=== PATIENT | female | born 1940 | race Caucasian/White ===

== ENCOUNTER 2017-08-03 13:44 | Emergency (ER) | payer OTHER, MEDICAID ==
[2017-08-03 13:53] VITALS: BP 161/79; BMI 28.8
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
[2017-08-03 14:25] LABS: BILIRUBIN,URINE NEGATIVE (NEGATIVE); BLOOD/HEMOGLOBIN,URINE 3+ (NEGATIVE); GLUCOSE, URINE NEGATIVE (NEGATIVE); KETONES,URINE NEGATIVE (NEGATIVE); LEUKOCYTE ESTERASE ,URINE 3+ (NEGATIVE); NITRITES,URINE NEGATIVE (NEGATIVE); PROTEIN,URINE NEGATIVE (NEGATIVE); UROBILINOGEN,URINE NORMAL (NORMAL)
[2017-08-03 14:29] LABS: APPEARANCE,URINE HAZY (CLEAR); COLOR,URINE PALE YELLOW (YELLOW)
--- NOTE | 2017-08-03 14:32 | CT ---
HISTORY: Altered mental status, hallucinations Study: CT brain without contrast Comparison: None Technique: Multiple axial images of the brain were obtained from the skull base to the vertex without administra tion of IV contrast. Findings: Imaging of the brain demonstrates no intracranial hemorrhage, mass effect, or midline shift. No extra -axial fluid collection is identified. There is no CT evidence to suggest acute or early subacute inf arct. Global atrophy is noted in is commensurate with patient's stated age. The ventricular system is nondilated. The basilar cisterns are patent. The bony structures are intact. IMPRESSION: 1. No acute intracranial process evident Reported By:
--- NOTE | 2017-08-03 14:34 | RAD ---
HISTORY: Altered mental status, shortness of breath, hallucinations Study: Single view chest Comparison:None Findings: There is mild subsegmental atelectasis in the lung bases. No infiltrate, effusion or pneumothorax sylvia ntified. The cardiac and mediastinal contours are within normal limits. The soft tissues are unremar kable. IMPRESSION: 1. No acute cardiopulmonary abnormality. Reported By:
[2017-08-03 14:37] LABS: BACTERIA,URINE 2+ /HPF (NEGATIVE); RBC,URINE 0-2 /HPF (NONE SEEN); SQUAMOUS EPITHELIAL CELL,UR FEW /HPF (NEGATIVE)
[2017-08-03 14:38] LABS: AMORPHOUS SEDIMENT,UR 1+ /HPF (NEGATIVE); TRANSITIONAL EPI CELLS,URINE FEW /HPF (NEGATIVE)
[2017-08-03 14:45] LABS: BASOPHILS # (AUTO) 0.1 X10^3/uL (0.0-0.1); BASOPHILS % (AUTO) 0.7 % (0.2-1.0); EOSINOPHILS % (AUTO) 0.3 % (0.9-2.9); HEMATOCRIT 32.1 % (36.0-47.0); HEMOGLOBIN 11.2 g/dL (12.0-16.0); LYMPHOCYTES % (AUTO) 12.7 % (21.0-51.0); MEAN CORPUSCULAR HEMOGLOBIN 32.1 pg (27.0-34.0); MEAN CORPUSCULAR HGB CONC 34.9 g/dL (33.0-35.0); MEAN CORPUSCULAR VOLUME 92.1 fL (80.0-100.0); MEAN PLATELET VOLUME 9.3 fL (7.4-11.0); MONOCYTES # (AUTO) 0.8 x10^3/uL (0.3-0.8); MONOCYTES % (AUTO) 9.3 % (0.0-13.0); NEUTROPHILS # (AUTO) 6.3 x10^3/uL (2.2-4.8); PLATELET COUNT 183 X10^3/uL (150.0-450.0); RED BLOOD COUNT 3.48 X10^6/uL (3.5-5.4); RED CELL DISTRIBUTION WIDTH 12.6 % (11.6-16.5); WHITE BLOOD COUNT 8.1 X10^3/uL (3.6-10.0)
[2017-08-03 15:28] LABS: BLOOD UREA NITROGEN 12 mg/dL (7-18); CALCIUM 7.8 mg/dL (8.5-10.1); CHLORIDE 104 mmol/L (98-107); CREATININE 1.32 mg/dL (0.55-1.02); SALICYLATE < 2.8 mg/dL (2.8-20); SODIUM 140 mmol/L (136-145); TROPONIN I < 0.02 ng/mL (0-1.5); eGFR BLACK RACES 50 (>60); eGFR NON BLACK RACES 42 (>60)
[2017-08-03 15:35] LABS: ALANINE AMINOTRANSFERASE 19 Units/L (12-78); ALBUMIN 3.8 g/dL (3.4-5.0); ALKALINE PHOSPHATASE 94 Units/L (46-116); ASPARTATE AMINO TRANSFERASE 14 Units/L (15-37); CKMB % 1.1 % (<4); CREATINE KINASE 143 Units/L (26-192); CREATINE KINASE MB 1.5 ng/mL (0-4.0); TOTAL PROTEIN 6.8 g/dL (6.4-8.2)
[2017-08-03] MEDS ORDERED: XANAX ONE (17:09)
[2017-08-03] MEDS ORDERED: XANAX PO ONE (17:11)
== END 2017-08-03 17:26 | disposition short-term general hospital (02) ==
LOC: ER 14:06
DX: R40.4 Transient alteration of awareness (principal); R44.1 Visual hallucinations; N39.0 Urinary tract infection, site not specified; F22 Delusional disorders; F41.9 Anxiety disorder, unspecified; R31.9 Hematuria, unspecified; R94.31 Abnormal electrocardiogram [ECG] [EKG]; Z79.899 Other long term (current) drug therapy
CPT/HCPCS: 36415; 70450; 71045; 80053; 80307; 81001; 82550; 82553; 84484; 85025; 93005; 93010; 99283; 99285; G0434; G6038; G6039; G6040

== ENCOUNTER 2018-02-18 10:31 | Inpatient (IN) ==
[2018-02-18] MEDS ORDERED: SOLU-Medrol 125 MG VIAL IVP ONE (10:40)
[2018-02-18] MEDS ORDERED: DUONEB 0.5 MG/3 MG NEB ONE (10:40)
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
[2018-02-18 10:48] VITALS: BMI 28.3
[2018-02-18] MEDS ORDERED: DUONEB 0.5 MG/3 MG ONE (10:51)
[2018-02-18] MEDS ORDERED: SOLU-Medrol 125 MG VIAL ONE (10:56)
[2018-02-18 10:59] LABS: BASOPHILS # (AUTO) 0.1 X10^3/uL (0.0-0.1); BASOPHILS % (AUTO) 0.9 % (0.2-1.0); EOSINOPHILS % (AUTO) 0.1 % (0.9-2.9); HEMATOCRIT 33.8 % (36.0-47.0); HEMOGLOBIN 11.5 g/dL (12.0-16.0); LYMPHOCYTES # (AUTO) 1.3 X10^3/uL (1.3-2.9); LYMPHOCYTES % (AUTO) 11.9 % (21.0-51.0); MEAN CORPUSCULAR HEMOGLOBIN 32.6 pg (27.0-34.0); MEAN CORPUSCULAR HGB CONC 34.2 g/dL (33.0-35.0); MEAN CORPUSCULAR VOLUME 95.5 fL (80.0-100.0); MEAN PLATELET VOLUME 8.2 fL (7.4-11.0); MONOCYTES % (AUTO) 9.7 % (0.0-13.0); NEUTROPHILS # (AUTO) 8.3 x10^3/uL (2.2-4.8); NEUTROPHILS % (AUTO) 77.4 % (42.0-75.0); PLATELET COUNT 286 X10^3/uL (150.0-450.0); RED BLOOD COUNT 3.54 X10^6/uL (3.5-5.4); RED CELL DISTRIBUTION WIDTH 14.1 % (11.6-16.5); WHITE BLOOD COUNT 10.7 X10^3/uL (3.6-10.0)
[2018-02-18] MEDS ORDERED: NS 1000 ML 1,000 ML IV SCH (11:00)
--- NOTE | 2018-02-18 11:06 | RAD ---
HISTORY: Cough, AMS Study: Single-view chest Comparison: 08/03/2017. Findings: Trachea is midline. Heart size is upper normal with aortic uncoiling. There is hyperinflation of the lungs with increased interstitial markings. Interstitial markings have increased compared to the prior studies. There is also silhouetting of the left hemidiaphragm which may indicate atelectasis or infiltrate present in this region. No apparent CHF is seen. There is degenerative change present involving the right shoulder. No acute osseous changes are seen. IMPRESSION: Findings likely indicating COPD with hyperinflation and increased interstitial markings bilaterally. Interstitial markings appear to have increased compared to the prior study. There is also silhouetting of the left hemidiaphragm which may indicate atelectasis or infiltrate present in this region. Reported By:
[2018-02-18 11:19] LABS: BLOOD UREA NITROGEN 21 mg/dL (7-18); CARBON DIOXIDE 22.7 mmol/L (21-32); CHLORIDE 98 mmol/L (98-107); CREATININE 1.11 mg/dL (0.55-1.02); SODIUM 133 mmol/L (136-145); TROPONIN I < 0.02 ng/mL (0-1.5); eGFR NON BLACK RACES 51 (>60)
[2018-02-18 11:23] LABS: ALANINE AMINOTRANSFERASE 38 Units/L (12-78); ALBUMIN 3.5 g/dL (3.4-5.0); ALKALINE PHOSPHATASE 123 Units/L (46-116); ASPARTATE AMINO TRANSFERASE 17 Units/L (15-37); CKMB % 3.4 % (<4); CREATINE KINASE 50 Units/L (26-192); CREATINE KINASE MB 1.7 ng/mL (0-4.0); TOTAL PROTEIN 7.5 g/dL (6.4-8.2)
[2018-02-18 11:39] LABS: BILIRUBIN,URINE NEGATIVE (NEGATIVE); BLOOD/HEMOGLOBIN,URINE 1+ (NEGATIVE); GLUCOSE, URINE NEGATIVE (NEGATIVE); KETONES,URINE 1+ (NEGATIVE); LEUKOCYTE ESTERASE ,URINE 1+ (NEGATIVE); NITRITES,URINE NEGATIVE (NEGATIVE); PROTEIN,URINE 2+ (NEGATIVE); UROBILINOGEN,URINE NORMAL (NORMAL)
[2018-02-18 11:46] LABS: APPEARANCE,URINE HAZY (CLEAR); COLOR,URINE YELLOW (YELLOW)
[2018-02-18 11:47] LABS: BACTERIA,URINE NEGATIVE /HPF (NEGATIVE); MUCUS,URINE FEW /HPF (NEGATIVE); RBC,URINE 0-2 /HPF (NONE SEEN); SQUAMOUS EPITHELIAL CELL,UR RARE /HPF (NEGATIVE)
[2018-02-18] MEDS ORDERED: ROCEPHIN VIAL 1 GRAM IVP ONE (12:13)
--- NOTE | 2018-02-18 12:13 | CT ---
HISTORY: Altered mental status Study: CT brain without contrast Comparison: 08/03/2017 Technique: Multiple axial images of the brain were obtained from the skull base to the vertex without administration of IV contrast. Findings: Imaging of the brain demonstrates no intracranial hemorrhage, mass effect, or midline shift. No extra-axial fluid collection is identified. There is no CT evidence to suggest acute or early subacute infarct. Global atrophy is noted. The ventricular system is nondilated. The basilar cisterns are patent. The bony structures are intact. IMPRESSION: 1. No acute intracranial process evident. Reported By:
[2018-02-18] MEDS: LOVENOX INJ 80 MG SYR SC SCH (13:25)
[2018-02-18] MEDS ORDERED: NS 1/2 1000 ML IV 1,000 ML IV ONE (14:47)
[2018-02-18] MEDS: NS 1/2 1000 ML IV 1,000 ML IV SCH (14:58)
[2018-02-18] MEDS: VIBRAMYCIN 100 MG in NS 100 ML IV + SPIKE MINIBAG* 100 ML IV SCH ×2 (14:59→21:30)
[2018-02-18] MEDS ORDERED: SALINE 3% 15 ML NEB TX NEB ONE (15:29)
[2018-02-18] MEDS: DUONEB 0.5 MG/3 MG NEB SCH ×2 (16:40→20:46)
[2018-02-18] MEDS ORDERED: VALIUM INJ ONE (16:42)
[2018-02-18] MEDS: VALIUM INJ IVP PRN (16:49)
[2018-02-18] MEDS: ROBITUSSIN DM PO SCH ×2 (17:08→21:30)
[2018-02-19] MEDS: VALIUM INJ IVP PRN ×2 (00:56→08:59)
[2018-02-19] MEDS: DUONEB 0.5 MG/3 MG NEB SCH ×6 (00:56→21:43)
[2018-02-19] MEDS: NS 1/2 1000 ML IV 1,000 ML IV SCH ×3 (04:53→22:30)
[2018-02-19] MEDS ORDERED: NS 1/2 1000 ML IV 1,000 ML IV ONE ×2 (06:29→22:20)
[2018-02-19] MEDS: NICOTINE PATCH TD SCH ×2 (06:31→08:58)
[2018-02-19 06:45] LABS: BASOPHILS % (AUTO) 0.2 % (0.2-1.0); HEMOGLOBIN 9.5 g/dL (12.0-16.0); LYMPHOCYTES # (AUTO) 1.2 X10^3/uL (1.3-2.9); LYMPHOCYTES % (AUTO) 10.1 % (21.0-51.0); MEAN CORPUSCULAR HEMOGLOBIN 32.6 pg (27.0-34.0); MEAN CORPUSCULAR HGB CONC 34.1 g/dL (33.0-35.0); MEAN CORPUSCULAR VOLUME 95.6 fL (80.0-100.0); MEAN PLATELET VOLUME 8.6 fL (7.4-11.0); MONOCYTES # (AUTO) 0.9 x10^3/uL (0.3-0.8); MONOCYTES % (AUTO) 7.9 % (0.0-13.0); NEUTROPHILS # (AUTO) 9.3 x10^3/uL (2.2-4.8); NEUTROPHILS % (AUTO) 81.8 % (42.0-75.0); PLATELET COUNT 246 X10^3/uL (150.0-450.0); RED BLOOD COUNT 2.93 X10^6/uL (3.5-5.4); RED CELL DISTRIBUTION WIDTH 14.3 % (11.6-16.5); WHITE BLOOD COUNT 11.3 X10^3/uL (3.6-10.0)
[2018-02-19 07:09] LABS: ALANINE AMINOTRANSFERASE 25 Units/L (12-78); ALBUMIN 2.7 g/dL (3.4-5.0); ALKALINE PHOSPHATASE 88 Units/L (46-116); ASPARTATE AMINO TRANSFERASE 12 Units/L (15-37); BLOOD UREA NITROGEN 22 mg/dL (7-18); CALCIUM 8.3 mg/dL (8.5-10.1); CARBON DIOXIDE 20.9 mmol/L (21-32); CHLORIDE 103 mmol/L (98-107); COR CA(FOR HYPOALB) 9.3 mg/dL (8.5-10.1); CREATININE 1.05 mg/dL (0.55-1.02); SODIUM 137 mmol/L (136-145); eGFR NON BLACK RACES 54 (>60)
[2018-02-19] MEDS: VIBRAMYCIN 100 MG in NS 100 ML IV + SPIKE MINIBAG* 100 ML IV SCH ×2 (08:57→21:00)
[2018-02-19] MEDS: ROBITUSSIN DM PO SCH ×4 (08:58→20:59)
[2018-02-19] MEDS: LOVENOX INJ 80 MG SYR SC SCH (08:59)
[2018-02-19] MEDS: SOLU-Medrol 40 MG VIAL IVP SCH ×2 (09:00→16:26)
[2018-02-19] MEDS: ROCEPHIN VIAL 1 GRAM IVP SCH (09:01)
--- NOTE | 2018-02-19 09:39 | DR.H&P ---
H&P - History & Physical for Day of: H&P Date: 02/18/18 - Chief Complaint Chief Complaint: AMS - History of Present Illness History of Present Illness: 77WF ER ADMISSION AFTER BEING FOUND IN HER CAR IN PARKING [place] A GAS STATION WITH CONFUSION. PT HAS COPD WITH DIFFUSE EXPIRATORY WHEEZES, CHEST XRAY WITH CHRONIC LUNG CHANGES, CT HEAD IN ER WITHOUT ACUTE FINDINGS. PT HAS PMH COPD, HTN, OA. PT ADMITTED FOR TREATMENT OF ACUTE ILLNESS - Past Medical History Past Medical History: Anxiety, Arthritis, COPD, Hypertension - Family History Family Medical History: Diabetes Mellitus, Cancer, Heart Failure, Hypertension - Social History Does patient currently use any type of tobacco product: Yes Have you used tobacco products in the last 12 months: Yes Type of Tobacco Use: Cigarettes Does any household member use tobacco: No Alcohol Use: None - Medications Home Medications: No Known Drug Allergies Allergy (Verified 08/03/17 13:49) CONTINUE taking the following medications escitalopram oxalate 10 mg PO DAILY 02/18/18 [History] furosemide 20 mg PO DAILY 02/18/18 [History] lisinopril 20 mg PO DAILY 02/18/18 [History] potassium chloride 10 meq PO DAILY 02/18/18 [History] - Review of Systems Constitutional: Weakness Eyes: No Symptoms Reported ENT: No Symptoms Reported Respiratory: Cough, Shortness of Breath, SOB with Excertion, Wheezing Gastrointestinal: No Symptoms Reported Genitourinary: No Symptoms Reported Musculoskeletal: No Symptoms Reported Skin: No Symptoms Reported Neurological: Confusion - Physical Exam Vital Signs: Temperature 98.4 F Pulse Rate [Right Brachial] 80 Pulse Rate 86 Respiratory Rate 24 Blood Pressure [Right Arm] 135/66 Blood Pressure 100/55 O2 Sat by Pulse Oximetry 99 Oriented: Person Eyes: Normal Ear: Normal Nose: Normal Throat: Dry Respiratory: Diminished Throughout, Wheezes Throughout Cardiovascular: Tachycardia : Normal Auscultation: Bowel Sounds: Normal Palpation: Normal Tenderness: Normal Skin: Decreased Turgur Musculoskeletal: Back:Lumbar Psychiatric: Anxiety Mood Description: Flat Speech Pattern: Appropriate, Delayed - Assessment/Plan (1) Altered mental state Status: Acute Plan: ADMIT, CT HEAD ON ADMISSION. CARDIAC MONITORING, SUPPLEMENTAL O2 AGGRESSIVE RESP THERAPY. IV ATBX, SPUTUM AND BLOOD CULTURES ON ADMISSION. VE RIFY HOME MEDICATION, GENTLE IV HYDRATION, I&OS (2) COPD with acute exacerbation Status: Acute (3) Hypertension Status: Acute (4) Bronchitis Status: Acute - Allergies Allergies/Adverse Reactions: Allergies Allergy/AdvReac Type Severity Reaction Status Date / Time No Known Drug Allergies Allergy Verified 08/03/17 13:49
[2018-02-19] MEDS ORDERED: BENADRYL INJ 50 MG VIAL IVP ONE (11:00)
[2018-02-19] MEDS ORDERED: BENADRYL INJ 50 MG VIAL ONE (11:15)
[2018-02-19] MEDS ORDERED: HALDOL INJ IVP ONE (11:20)
[2018-02-19] MEDS ORDERED: HALDOL INJ IVP PRN (12:26)
[2018-02-20] MEDS: SOLU-Medrol 40 MG VIAL IVP SCH ×3 (00:40→16:39)
[2018-02-20] MEDS: DUONEB 0.5 MG/3 MG NEB SCH ×6 (00:52→20:40)
[2018-02-20 05:58] LABS: BASOPHILS % (AUTO) 0.2 % (0.2-1.0); HEMATOCRIT 28.1 % (36.0-47.0); HEMOGLOBIN 9.5 g/dL (12.0-16.0); LYMPHOCYTES # (AUTO) 0.6 X10^3/uL (1.3-2.9); LYMPHOCYTES % (AUTO) 3.3 % (21.0-51.0); MEAN CORPUSCULAR HGB CONC 33.7 g/dL (33.0-35.0); MEAN CORPUSCULAR VOLUME 94.9 fL (80.0-100.0); MEAN PLATELET VOLUME 8.4 fL (7.4-11.0); MONOCYTES # (AUTO) 0.4 x10^3/uL (0.3-0.8); MONOCYTES % (AUTO) 2.6 % (0.0-13.0); NEUTROPHILS # (AUTO) 15.6 x10^3/uL (2.2-4.8); NEUTROPHILS % (AUTO) 93.9 % (42.0-75.0); PLATELET COUNT 263 X10^3/uL (150.0-450.0); RED BLOOD COUNT 2.96 X10^6/uL (3.5-5.4); RED CELL DISTRIBUTION WIDTH 13.9 % (11.6-16.5); WHITE BLOOD COUNT 16.7 X10^3/uL (3.6-10.0)
[2018-02-20 06:13] LABS: ALANINE AMINOTRANSFERASE 28 Units/L (12-78); ALBUMIN 2.7 g/dL (3.4-5.0); ALKALINE PHOSPHATASE 83 Units/L (46-116); ASPARTATE AMINO TRANSFERASE 14 Units/L (15-37); BLOOD UREA NITROGEN 28 mg/dL (7-18); CALCIUM 8.2 mg/dL (8.5-10.1); CARBON DIOXIDE 19.6 mmol/L (21-32); CHLORIDE 105 mmol/L (98-107); COR CA(FOR HYPOALB) 9.2 mg/dL (8.5-10.1); COR NA(FOR HYPERGLY) 138 mmol/L (136-145); CREATININE 1.12 mg/dL (0.55-1.02); SODIUM 137 mmol/L (136-145); TOTAL PROTEIN 5.9 g/dL (6.4-8.2); eGFR NON BLACK RACES 50 (>60)
[2018-02-20 06:19] LABS: PLATELET MORPHOLOGY COMMENT NORMAL (NORMAL)
[2018-02-20] MEDS: LOVENOX INJ 80 MG SYR SC SCH (08:22)
[2018-02-20] MEDS: ROCEPHIN VIAL 1 GRAM IVP SCH (08:23)
[2018-02-20] MEDS: ROBITUSSIN DM PO SCH ×4 (08:23→20:18)
[2018-02-20] MEDS: NICOTINE PATCH TD SCH (08:26)
[2018-02-20] MEDS: NS 1/2 1000 ML IV 1,000 ML IV SCH ×3 (08:27→22:39)
[2018-02-20] MEDS: VIBRAMYCIN 100 MG in NS 100 ML IV + SPIKE MINIBAG* 100 ML IV SCH (08:28)
[2018-02-20] MEDS ORDERED: NS 1/2 1000 ML IV 1,000 ML IV ONE (11:57)
--- NOTE | 2018-02-20 13:58 | PCM.PROG ---
Addendum entered and electronically signed by MERLIN KING 02/20/18 14:03: PROGRESS 02/20/2018 1013 SIGNED ON 02/19/[address] BUENO Original Note: Progress Note - Progress Note for Day of Date of Exam: 02/19/18 - Subjective Subjective: 77 WF ER ADMISSION ON 02/19 WITH CONFUSION AND BRONCHITIS. PT CURRENTLY ON IV ATBX, RESP THERAPY. PT IS VERY AGITATED THIS AM, SITTING ON SIDE OF BED WITH FAMILY IN ROOM. PT ORIENTED TO SELF AND LOCATION. PT STATEE " IT DOESNT MATTER WHAT THEY SAY, THEY WILL BE EXECUTED AT [facility] ON TUESDAY" WHILE POINTING AT HER 3 FAMILIY MEMBERS IN HER ROOM. PT STATES " I KNOW MY RIGHTS AND I WANT TO GO HOME AND DONT WANT ANY MORE TREATMENT" PT ATTEMPTING TO REMOVE HER IV. FAMILY REPORTS PT HAS HX OF MENTAL ILLNESS, HAD TO BE 1013 AND SENT TO [facility] SEVERAL MONTHS AGO. FAMILY REPORTS SHE LIVES ALONE AND FAMILY CHECKS ON HER DAILY, PT HAS BEEN HAVING INCREASED CONFUSION AND PARANOIA WITH HALLUCINATIONS. - Past Medical Family Social History Past Med/Fam/Surg Hx: No changes since H&P Allergies: Allergies No Known Drug Allergies Allergy (Verified 08/03/17 13:49) - Review of Systems ROS: No change since H&P - Vital Signs and I&O's Vital Signs: Temperature 98.1 F Pulse Rate [Right Brachial] 80 Pulse Rate 89 Respiratory Rate 19 Blood Pressure [Right Arm] 135/66 Blood Pressure 132/60 O2 Sat by Pulse Oximetry 97 Intake and Output: Intake & Output 02/18/18 02/19/18 02/20/18 02/21/18 11:59 11:59 11:59 11:59 Intake Total 2245 / 2245 2173 / 2173 882 / 882 Balance 2245 / 2245 2173 / 2173 882 / 882 - Physical Exam Oriented: Person Eyes: Normal Ear: Normal Nose: Normal Throat: Dry Cardiovascular: Tachycardia : Normal Auscultation: Bowel Sounds: Normal Tenderness: Normal Skin: Decreased Turgur Musculoskeletal: Back:Lumbar Psychiatric: Anxiety, Agitation (SITTING ON BEDSIDE, ROCKING, FIGETING, RESTLESS) Mood Description: Flat, Suspicious, Anxious Affect: Anxious Speech Pattern: Clear, Appropriate, Inappropriate (BOTH TRUE AND UNTRUE RESPONSES) - Laboratory and Diagnostics Result Diagrams: 02/20/18 05:10 02/20/18 05:10 Labs: 02/18/18 10:36 Blood Blood Culture - Preliminary 02/18/18 10:48 Blood Blood Culture - Preliminary 02/18/18 15:08 Sputum - Expectorated Sputum Sputum Culture - Final 02/18/18 15:08 Sputum - Expectorated Sputum - Final Laboratory WBC 16.7 X10^3/uL (3.6-10.0) H 02/20/18 05:10 RBC 2.96 X10^6/uL (3.5-5.4) L 02/20/18 05:10 Hgb 9.5 g/dL (12.0-16.0) L 02/20/18 05:10 Hct 28.1 % (36.0-47.0) L 02/20/18 05:10 MCV 94.9 fL (80.0-100.0) 02/20/18 05:10 MCH 32.0 pg (27.0-34.0) 02/20/18 05:10 MCHC 33.7 g/dL (33.0-35.0) 02/20/18 05:10 RDW 13.9 % (11.6-16.5) 02/20/18 05:10 Plt Count 263 X10^3/uL (150.0-450.0) 02/20/18 05:10 Plt Count Comment Adequate (ADEQUATE) 02/20/18 05:10 MPV 8.4 fL (7.4-11.0) 02/20/18 05:10 Neut % (Auto) 93.9 % (42.0-75.0) H 02/20/18 05:10 Lymph % (Auto) 3.3 % (21.0-51.0) L 02/20/18 05:10 [place] % (Auto) 2.6 % (0.0-13.0) 02/20/18 05:10 Eos % (Auto) 0.0 % (0.9-2.9) L 02/20/18 05:10 Baso % (Auto) 0.2 % (0.2-1.0) 02/20/18 05:10 Neut # (Auto) 15.6 x10^3/uL (2.2-4.8) H 02/20/18 05:10 Lymph # (Auto) 0.6 X10^3/uL (1.3-2.9) L 02/20/18 05:10 [place] # (Auto) 0.4 x10^3/uL (0.3-0.8) 02/20/18 05:10 Eos # (Auto) 0.0 x10^3/uL (0.0-0.2) 02/20/18 05:10 Baso # (Auto) 0.0 X10^3/uL (0.0-0.1) 02/20/18 05:10 Absolute Nucleated RBC 0.0 /100WBC 02/20/18 05:10 Total Counted 100 02/20/18 05:10 Neutrophils % (Manual) 97 % (39-76) H 02/20/18 05:10 Lymphocytes % (Manual) 3 % (13-43) L 02/20/18 05:10 Plt Morphology Comment Normal (NORMAL) 02/20/18 05:10 RBC Morphology Normal (NORMAL) 02/20/18 05:10 INR Target Range - 02/18/18 10:48 INR 1.08 (0.8-1.3) 02/18/18 10:48 APTT 36.9 SECONDS (22.9-36.5) H 02/18/18 10:48 PTT Comment - 02/18/18 10:48 D-Dimer 1480 ng/mL (0-400) H* 02/18/18 10:48 Sodium 137 mmol/L (136-145) 02/20/18 05:10 Corrected Sodium 138 mmol/L (136-145) 02/20/18 05:10 Potassium 4.6 mmol/L (3.5-5.1) 02/20/18 05:10 Chloride 105 mmol/L (98-107) 02/20/18 05:10 Carbon Dioxide 19.6 mmol/L (21-32) L 02/20/18 05:10 BUN 28 mg/dL (7-18) H 02/20/18 05:10 Creatinine 1.12 mg/dL (0.55-1.02) H 02/20/18 05:10 Est GFR (MDRD) Af Amer > 60 (>60) 02/20/18 05:10 Est GFR (MDRD) Non-Af 50 (>60) L 02/20/18 05:10 Glucose 129 mg/dL (65-99) H 02/20/18 05:10 Calcium 8.2 mg/dL (8.5-10.1) L 02/20/18 05:10 Corrected Calcium 9.2 mg/dL (8.5-10.1) 02/20/18 05:10 Magnesium 2.0 mg/dL (1.7-2.9) 02/18/18 10:48 Total Bilirubin 0.20 mg/dL (0.2-1.0) 02/20/18 05:10 AST 14 Units/L (15-37) L 02/20/18 05:10 ALT 28 Units/L (12-78) 02/20/18 05:10 Alkaline Phosphatase 83 Units/L (46-116) 02/20/18 05:10 Creatine Kinase 50 Units/L (26-192) 02/18/18 10:48 CK-MB (CK-2) 1.7 ng/mL (0-4.0) 02/18/18 10:48 CK/CKMB % Calc 3.4 % (<4) 02/18/18 10:48 Troponin I < 0.02 ng/mL (0-1.5) 02/18/18 10:48 Total Protein 5.9 g/dL (6.4-8.2) L 02/20/18 05:10 Albumin 2.7 g/dL (3.4-5.0) L 02/20/18 05:10 Globulin 3.2 g/dL (2.5-4.5) 02/20/18 05:10 Albumin/Globulin Ratio 0.8 Ratio (1.1-2.1) L 02/20/18 05:10 Specimen Type Catherized urine 02/18/18 11:32 Urine Color Yellow (YELLOW) 02/18/18 11:32 Urine Appearance Hazy (CLEAR) 02/18/18 11:32 Urine pH 5.0 (5.0 - 8.0) 02/18/18 11:32 Ur Specific [place] 1.015 (1.000-1.030) 02/18/18 11:32 Urine Protein 2+ (NEGATIVE) 02/18/18 11:32 Urine Glucose (UA) Negative (NEGATIVE) 02/18/18 11:32 Urine Ketones 1+ (NEGATIVE) 02/18/18 11:32 Urine Occult Blood 1+ (NEGATIVE) 02/18/18 11:32 Urine Nitrite Negative (NEGATIVE) 02/18/18 11:32 Urine Bilirubin Negative (NEGATIVE) 02/18/18 11:32 Urine Urobilinogen Normal (NORMAL) 02/18/18 11:32 Ur Leukocyte Esterase 1+ (NEGATIVE) 02/18/18 11:32 Urine RBC 0-2 /HPF (NONE SEEN) 02/18/18 11:32 Urine WBC 0-2 /HPF (NONE SEEN) 02/18/18 11:32 Ur Squamous Epith Cells Rare /HPF (NEGATIVE) 02/18/18 11:32 Urine Bacteria Negative /HPF (NEGATIVE) 02/18/18 11:32 Urine Mucus Few /HPF (NEGATIVE) 02/18/18 11:32 Ur Culture Indicated? No/not indicated 02/18/18 11:32 Urine Opiates Screen Negative (NEG=<300) 02/18/18 11:32 Urine Methadone Screen Negative (NEG=<300) 02/18/18 11:32 Ur Barbiturates Screen Negative (NEG=<200) 02/18/18 11:32 Ur Phencyclidine Scrn Negative (NEG=<25) 02/18/18 11:32 Ur Amphetamines Screen Negative (NEG=<1000) 02/18/18 11:32 U Benzodiazepines Scrn Negative (NEG=<200) 02/18/18 11:32 Urine Cocaine Screen Negative (NEG=<300) 02/18/18 11:32 U Marijuana (THC) Screen Negative (NEG=<50) 02/18/18 11:32 - Plan (1) Altered mental state Status: Acute Plan: CT HEAD ON ADMISSION WITHOUT ACUTE FINDINGS. CARDIAC MONITORING, SUPPLEMENTAL O2 AGGRESSIVE RESP THERAPY. IV ATBX, SPUTUM AND BLOOD CULTURES ON ADMISSION. GENTLE IV HYDRATION, I&OS (2) COPD with acute exacerbation Status: Acute (3) Hypertension Status: Chronic (4) Bronchitis Status: Inactive (5) Agitation Status: Acute (6) Hallucination Status: Acute Plan: "TALKING TO PEOPLE" PER SON AND DAUGHTERS REPORTS. PRN HALDOL AND BENADRYL. [address] BUENO, ARRANGE FOR TREATMENT FOR BEHAVIOR HEALTH AFTER MEDICALLY IMPROVED. (7) Paranoid behavior Status: Acute Plan: REFUSING NURSING CARE FOR ACUTE ILLNESS
--- NOTE | 2018-02-20 16:31 | RAD ---
HISTORY: Acute bronchitis. Study: AP portable chest Comparison: 02/18/2018 Findings: There is persistent left lower lobe atelectatic change/infiltrate, not felt to be significantly changed. Minimal subsegmental atelectasis/infiltrate is noted in the right mid lung. Mild chronic interstitial scarring is noted. The heart size is normal. No acute bony abnormalities are identified. There may be very minimal effusion on the left. IMPRESSION: 1. Persistent left lower lobe atelectatic change/infiltrate, unchanged. 2. Interval development of minimal subsegmental atelectasis/infiltrate in the right mid lung. Reported By:
[2018-02-20] MEDS: LEVAQUIN PREMIX IV 500 MG 500 MG/100 ML BAG IV SCH (20:16)
[2018-02-21] MEDS: SOLU-Medrol 40 MG VIAL IVP SCH ×3 (00:25→16:23)
[2018-02-21] MEDS: TUSSIONEX PENNKINETIC SUSP PO PRN (01:04)
[2018-02-21] MEDS: DUONEB 0.5 MG/3 MG NEB SCH ×7 (01:07→20:46)
[2018-02-21 05:19] LABS: BASOPHILS % (AUTO) 0.2 % (0.2-1.0); HEMATOCRIT 27.2 % (36.0-47.0); HEMOGLOBIN 9.3 g/dL (12.0-16.0); LYMPHOCYTES # (AUTO) 0.5 X10^3/uL (1.3-2.9); LYMPHOCYTES % (AUTO) 3.7 % (21.0-51.0); MEAN CORPUSCULAR HEMOGLOBIN 32.4 pg (27.0-34.0); MEAN CORPUSCULAR HGB CONC 34.1 g/dL (33.0-35.0); MEAN CORPUSCULAR VOLUME 95.2 fL (80.0-100.0); MONOCYTES # (AUTO) 0.7 x10^3/uL (0.3-0.8); MONOCYTES % (AUTO) 4.7 % (0.0-13.0); NEUTROPHILS # (AUTO) 13.3 x10^3/uL (2.2-4.8); NEUTROPHILS % (AUTO) 91.4 % (42.0-75.0); PLATELET COUNT 246 X10^3/uL (150.0-450.0); RED BLOOD COUNT 2.86 X10^6/uL (3.5-5.4); RED CELL DISTRIBUTION WIDTH 13.7 % (11.6-16.5); WHITE BLOOD COUNT 14.6 X10^3/uL (3.6-10.0)
[2018-02-21 05:27] LABS: ALANINE AMINOTRANSFERASE 43 Units/L (12-78); ALBUMIN 2.6 g/dL (3.4-5.0); ALKALINE PHOSPHATASE 77 Units/L (46-116); ASPARTATE AMINO TRANSFERASE 20 Units/L (15-37); BLOOD UREA NITROGEN 26 mg/dL (7-18); CALCIUM 8.3 mg/dL (8.5-10.1); CARBON DIOXIDE 21.3 mmol/L (21-32); CHLORIDE 106 mmol/L (98-107); COR CA(FOR HYPOALB) 9.4 mg/dL (8.5-10.1); COR NA(FOR HYPERGLY) 140 mmol/L (136-145); CREATININE 1.04 mg/dL (0.55-1.02); SODIUM 139 mmol/L (136-145); TOTAL PROTEIN 5.7 g/dL (6.4-8.2); eGFR NON BLACK RACES 55 (>60)
[2018-02-21 06:03] LABS: PLATELET MORPHOLOGY COMMENT NORMAL (NORMAL)
[2018-02-21] MEDS: NICOTINE PATCH TD SCH (08:45)
[2018-02-21] MEDS: MILK OF MAGNESIA PO SCH ×2 (08:57→21:07)
[2018-02-21] MEDS: ROCEPHIN VIAL 1 GRAM IVP SCH (08:57)
[2018-02-21] MEDS: ROBITUSSIN DM PO SCH ×4 (08:57→21:07)
[2018-02-21] MEDS: LOVENOX INJ 80 MG SYR SC SCH (08:58)
[2018-02-21] MEDS: LEVAQUIN PREMIX IV 500 MG 500 MG/100 ML BAG IV SCH (09:02)
[2018-02-21] MEDS: PULMICORT NEB TX 0.5 MG NEB SCH ×2 (09:37→20:47)
[2018-02-21] MEDS ORDERED: SALINE 3% 15 ML NEB TX NEB ONE (09:55)
[2018-02-21] MEDS: NS 1/2 1000 ML IV 1,000 ML IV SCH (12:06)
[2018-02-21] MEDS ORDERED: LEXAPRO ONE (20:44)
[2018-02-21] MEDS: COLACE CAP 100 MG PO SCH (21:07)
[2018-02-21] MEDS: LEXAPRO PO SCH (21:08)
[2018-02-21] MEDS: ARICEPT TAB 10 MG PO SCH (21:08)
[2018-02-22] MEDS: SOLU-Medrol 40 MG VIAL IVP SCH ×2 (00:12→08:45)
[2018-02-22] MEDS: DUONEB 0.5 MG/3 MG NEB SCH ×6 (00:57→20:19)
[2018-02-22] MEDS: TUSSIONEX PENNKINETIC SUSP PO PRN ×2 (01:09→22:27)
[2018-02-22] MEDS: NS 1/2 1000 ML IV 1,000 ML IV SCH ×2 (03:00→16:40)
[2018-02-22] MEDS ORDERED: NS 1/2 1000 ML IV 1,000 ML IV ONE (04:48)
[2018-02-22 06:12] LABS: BASOPHILS % (AUTO) 0.2 % (0.2-1.0); HEMATOCRIT 28.2 % (36.0-47.0); HEMOGLOBIN 9.6 g/dL (12.0-16.0); LYMPHOCYTES # (AUTO) 0.5 X10^3/uL (1.3-2.9); LYMPHOCYTES % (AUTO) 3.3 % (21.0-51.0); MEAN CORPUSCULAR HEMOGLOBIN 32.6 pg (27.0-34.0); MEAN PLATELET VOLUME 8.3 fL (7.4-11.0); MONOCYTES # (AUTO) 0.7 x10^3/uL (0.3-0.8); MONOCYTES % (AUTO) 4.1 % (0.0-13.0); NEUTROPHILS # (AUTO) 14.8 x10^3/uL (2.2-4.8); NEUTROPHILS % (AUTO) 92.4 % (42.0-75.0); PLATELET COUNT 245 X10^3/uL (150.0-450.0); RED BLOOD COUNT 2.94 X10^6/uL (3.5-5.4); WHITE BLOOD COUNT 16.1 X10^3/uL (3.6-10.0)
[2018-02-22 06:16] LABS: ALANINE AMINOTRANSFERASE 61 Units/L (12-78); ALBUMIN 2.6 g/dL (3.4-5.0); ALKALINE PHOSPHATASE 76 Units/L (46-116); ASPARTATE AMINO TRANSFERASE 26 Units/L (15-37); BLOOD UREA NITROGEN 26 mg/dL (7-18); CALCIUM 8.3 mg/dL (8.5-10.1); CARBON DIOXIDE 24.8 mmol/L (21-32); CHLORIDE 106 mmol/L (98-107); COR CA(FOR HYPOALB) 9.4 mg/dL (8.5-10.1); COR NA(FOR HYPERGLY) 140 mmol/L (136-145); CREATININE 1.02 mg/dL (0.55-1.02); SODIUM 139 mmol/L (136-145); TOTAL PROTEIN 5.8 g/dL (6.4-8.2); eGFR NON BLACK RACES 56 (>60)
[2018-02-22 06:31] LABS: PLATELET MORPHOLOGY COMMENT NORMAL (NORMAL)
[2018-02-22] MEDS: PULMICORT NEB TX 0.5 MG NEB SCH ×2 (08:11→20:19)
[2018-02-22] MEDS: MILK OF MAGNESIA PO SCH ×2 (08:45→20:36)
[2018-02-22] MEDS: ROBITUSSIN DM PO SCH ×4 (08:45→20:36)
[2018-02-22] MEDS: LEVAQUIN PREMIX IV 500 MG 500 MG/100 ML BAG IV SCH (08:46)
[2018-02-22] MEDS: NICOTINE PATCH TD SCH (08:46)
[2018-02-22] MEDS: ROCEPHIN VIAL 1 GRAM IVP SCH (08:46)
[2018-02-22] MEDS: LOVENOX INJ 80 MG SYR SC SCH (08:46)
--- NOTE | 2018-02-22 09:06 | RAD ---
HISTORY: Acute bronchitis cough fever Study: One-view chest Comparison: One view chest 12 3 and 02/18/2018 Technique: AP upright chest portable Findings: EKG leads overlie the thorax. There is upright in the right humeral head and along the inferior acromion consistent with chronic rotator cuff tear. The heart size configuration airway and vascularity are normal. The right lung is clear but there is pleural effusion and/or infiltrate left lower lobe retrocardiac region unchanged from 02/20 and 02/18/2018 prior films. IMPRESSION: 1. Persistent airspace disease with loss of the left hemidiaphragm medially in the left lung base consistent with atelectasis and/or infiltrate and small effusion left lung base unchanged from the last 2 studies. Left upper lung field and right lung are clear. Reported By:
[2018-02-22] MEDS ORDERED: HALDOL INJ IVP PRN (10:51)
[2018-02-22] MEDS ORDERED: PHARMACY CONSULT - DOSE _____ XX SCH (11:00)
[2018-02-22] MEDS ORDERED: HALDOL INJ IVP SCH (11:00)
[2018-02-22] MEDS: DIFLUCAN 100 MG IV (MIX by PHARMACY)* 100 MG/50 ML BAG IV SCH (11:17)
--- NOTE | 2018-02-22 11:33 | PCM.PROG ---
Progress Note - Progress Note for Day of Date of Exam: 02/21/18 - Subjective Subjective: 77 WF ER ADMISSION ON 02/19 WITH CONFUSION AND BRONCHITIS. PT CURRENTLY ON IV ATBX, RESP THERAPY. PT CALM AND COOPERATIVE AFTER RECEIVING HALDOL. WE HAD RESUMED PT'S HOME RISPERDAL AND LEXAPRO. NURSING STAFF REPORTS PT IS COOPERATIVE WITH MEDICAL PLAN OF CARE AT THIS TIME, CONTINUES WITH EPISODES OF CONFUSION WHICH IS STABLE DEMENTIA. PT ORIENTED TO SELF AND LOCATION. PT CXR WITH WORSENED BRONCHITIS, WE ADDED LEVAQUIN AND BUDESONIDE TO NEBS. WILL REPEAT AM LABS - Past Medical Family Social History Past Med/Fam/Surg Hx: No changes since H&P Allergies: Allergies No Known Drug Allergies Allergy (Verified 08/03/17 13:49) - Review of Systems ROS: No change since H&P - Vital Signs and I&O's Vital Signs: Temperature 97.5 F Pulse Rate [Right Brachial] 80 Pulse Rate 82 Respiratory Rate 21 Blood Pressure [Right Arm] 135/66 Blood Pressure 115/57 O2 Sat by Pulse Oximetry 94 Intake and Output: Intake & Output 02/19/18 02/20/18 02/21/18 02/22/18 11:59 11:59 11:59 11:59 Intake Total 2245 / 2245 2173 / 2173 1742 / 1742 2403 / 2403 Output Total 0 / 0 Balance 2245 / 2245 2173 / 2173 1742 / 1742 2403 / 2403 - Physical Exam Oriented: Person Eyes: Normal Ear: Normal Nose: Normal Throat: Dry Respiratory: Diminished, Wheezes, Rhonchi Cardiovascular: Tachycardia : Normal Auscultation: Bowel Sounds: Normal Tenderness: Normal Skin: Decreased Turgur Musculoskeletal: Back:Lumbar Psychiatric: Anxiety Mood Description: Flat, Suspicious, Anxious Affect: Anxious Speech Pattern: Clear, Appropriate - Laboratory and Diagnostics Result Diagrams: 02/22/18 05:10 02/22/18 05:10 Labs: 02/21/18 10:18 Sputum - Expectorated Sputum Sputum Culture - Preliminary 02/21/18 10:18 Sputum - Expectorated Sputum - Final 02/18/18 10:36 Blood Blood Culture - Preliminary 02/18/18 10:48 Blood Blood Culture - Preliminary 02/18/18 15:08 Sputum - Expectorated Sputum Sputum Culture - Final 02/18/18 15:08 Sputum - Expectorated Sputum - Final Laboratory WBC 16.1 X10^3/uL (3.6-10.0) H 02/22/18 05:10 RBC 2.94 X10^6/uL (3.5-5.4) L 02/22/18 05:10 Hgb 9.6 g/dL (12.0-16.0) L 02/22/18 05:10 Hct 28.2 % (36.0-47.0) L 02/22/18 05:10 MCV 96.0 fL (80.0-100.0) 02/22/18 05:10 MCH 32.6 pg (27.0-34.0) 02/22/18 05:10 MCHC 34.0 g/dL (33.0-35.0) 02/22/18 05:10 RDW 14.0 % (11.6-16.5) 02/22/18 05:10 Plt Count 245 X10^3/uL (150.0-450.0) 02/22/18 05:10 Plt Count Comment Adequate (ADEQUATE) 02/22/18 05:10 MPV 8.3 fL (7.4-11.0) 02/22/18 05:10 Neut % (Auto) 92.4 % (42.0-75.0) H 02/22/18 05:10 Lymph % (Auto) 3.3 % (21.0-51.0) L 02/22/18 05:10 [place] % (Auto) 4.1 % (0.0-13.0) 02/22/18 05:10 Eos % (Auto) 0.0 % (0.9-2.9) L 02/22/18 05:10 Baso % (Auto) 0.2 % (0.2-1.0) 02/22/18 05:10 Neut # (Auto) 14.8 x10^3/uL (2.2-4.8) H 02/22/18 05:10 Lymph # (Auto) 0.5 X10^3/uL (1.3-2.9) L 02/22/18 05:10 [place] # (Auto) 0.7 x10^3/uL (0.3-0.8) 02/22/18 05:10 Eos # (Auto) 0.0 x10^3/uL (0.0-0.2) 02/22/18 05:10 Baso # (Auto) 0.0 X10^3/uL (0.0-0.1) 02/22/18 05:10 Absolute Nucleated RBC 0.0 /100WBC 02/22/18 05:10 Total Counted 100 02/22/18 05:10 Neutrophils % (Manual) 93 % (39-76) H 02/22/18 05:10 Lymphocytes % (Manual) 5 % (13-43) L 02/22/18 05:10 Monocytes % (Manual) 2 % (4-9) L 02/22/18 05:10 Plt Morphology Comment Normal (NORMAL) 02/22/18 05:10 RBC Morphology Normal (NORMAL) 02/22/18 05:10 INR Target Range - 02/18/18 10:48 INR 1.08 (0.8-1.3) 02/18/18 10:48 APTT 36.9 SECONDS (22.9-36.5) H 02/18/18 10:48 PTT Comment - 02/18/18 10:48 D-Dimer 1480 ng/mL (0-400) H* 02/18/18 10:48 Sodium 139 mmol/L (136-145) 02/22/18 05:10 Corrected Sodium 140 mmol/L (136-145) 02/22/18 05:10 Potassium 4.7 mmol/L (3.5-5.1) 02/22/18 05:10 Chloride 106 mmol/L (98-107) 02/22/18 05:10 Carbon Dioxide 24.8 mmol/L (21-32) 02/22/18 05:10 BUN 26 mg/dL (7-18) H 02/22/18 05:10 Creatinine 1.02 mg/dL (0.55-1.02) 02/22/18 05:10 Est GFR (MDRD) Af Amer > 60 (>60) 02/22/18 05:10 Est GFR (MDRD) Non-Af 56 (>60) L 02/22/18 05:10 Glucose 137 mg/dL (65-99) H 02/22/18 05:10 Calcium 8.3 mg/dL (8.5-10.1) L 02/22/18 05:10 Corrected Calcium 9.4 mg/dL (8.5-10.1) 02/22/18 05:10 Magnesium 2.0 mg/dL (1.7-2.9) 02/18/18 10:48 Total Bilirubin 0.20 mg/dL (0.2-1.0) 02/22/18 05:10 AST 26 Units/L (15-37) 02/22/18 05:10 ALT 61 Units/L (12-78) 02/22/18 05:10 Alkaline Phosphatase 76 Units/L (46-116) 02/22/18 05:10 Creatine Kinase 50 Units/L (26-192) 02/18/18 10:48 CK-MB (CK-2) 1.7 ng/mL (0-4.0) 02/18/18 10:48 CK/CKMB % Calc 3.4 % (<4) 02/18/18 10:48 Troponin I < 0.02 ng/mL (0-1.5) 02/18/18 10:48 Total Protein 5.8 g/dL (6.4-8.2) L 02/22/18 05:10 Albumin 2.6 g/dL (3.4-5.0) L 02/22/18 05:10 Globulin 3.2 g/dL (2.5-4.5) 02/22/18 05:10 Albumin/Globulin Ratio 0.8 Ratio (1.1-2.1) L 02/22/18 05:10 Specimen Type Catherized urine 02/18/18 11:32 Urine Color Yellow (YELLOW) 02/18/18 11:32 Urine Appearance Hazy (CLEAR) 02/18/18 11:32 Urine pH 5.0 (5.0 - 8.0) 02/18/18 11:32 Ur Specific [place] 1.015 (1.000-1.030) 02/18/18 11:32 Urine Protein 2+ (NEGATIVE) 02/18/18 11:32 Urine Glucose (UA) Negative (NEGATIVE) 02/18/18 11:32 Urine Ketones 1+ (NEGATIVE) 02/18/18 11:32 Urine Occult Blood 1+ (NEGATIVE) 02/18/18 11:32 Urine Nitrite Negative (NEGATIVE) 02/18/18 11:32 Urine Bilirubin Negative (NEGATIVE) 02/18/18 11:32 Urine Urobilinogen Normal (NORMAL) 02/18/18 11:32 Ur Leukocyte Esterase 1+ (NEGATIVE) 02/18/18 11:32 Urine RBC 0-2 /HPF (NONE SEEN) 02/18/18 11:32 Urine WBC 0-2 /HPF (NONE SEEN) 02/18/18 11:32 Ur Squamous Epith Cells Rare /HPF (NEGATIVE) 02/18/18 11:32 Urine Bacteria Negative /HPF (NEGATIVE) 02/18/18 11:32 Urine Mucus Few /HPF (NEGATIVE) 02/18/18 11:32 Ur Culture Indicated? No/not indicated 02/18/18 11:32 Urine Opiates Screen Negative (NEG=<300) 02/18/18 11:32 Urine Methadone Screen Negative (NEG=<300) 02/18/18 11:32 Ur Barbiturates Screen Negative (NEG=<200) 02/18/18 11:32 Ur Phencyclidine Scrn Negative (NEG=<25) 02/18/18 11:32 Ur Amphetamines Screen Negative (NEG=<1000) 02/18/18 11:32 U Benzodiazepines Scrn Negative (NEG=<200) 02/18/18 11:32 Urine Cocaine Screen Negative (NEG=<300) 02/18/18 11:32 U Marijuana (THC) Screen Negative (NEG=<50) 02/18/18 11:32 - Plan (1) Bronchitis Status: Inactive Plan: IV ANTIBIOTICS, RESP THERAPY. SUPPLEMENTAL O2, IV STEROIDS. BP CONTROL, REPEAT SPUTUM CULTURE. AM CXR (2) Altered mental state Status: Acute Plan: CT HEAD ON ADMISSION WITHOUT ACUTE FINDINGS. CARDIAC MONITORING, SUPPLEMENTAL O2 AGGRESSIVE RESP THERAPY. IV ATBX, SPUTUM AND BLOOD CULTURES ON ADMISSION. GENTLE IV HYDRATION, I&OS (3) COPD with acute exacerbation Status: Acute (4) Hypertension Status: Chronic (5) Agitation Status: Acute (6) Hallucination Status: Acute Plan: "TALKING TO PEOPLE" PER SON AND DAUGHTERS REPORTS. PRN HALDOL AND BENADRYL. [address] BUENO ON SUN ARRANGE FOR TREATMENT FOR BEHAVIOR HEALTH AFTER MEDICALLY IMPROVED. (7) Paranoid behavior Status: Acute Plan: REFUSING NURSING CARE FOR ACUTE ILLNESS (8) Dementia with behavioral disturbance Status: Acute Plan: RESUMED RISPERDAL, LEXAPRO AND ARICEPT. CONTINUE PRN ANTI PSYCHOTICS, TREAT ACUTE ILLNESS. WILL DISCUSS WITH FAMILY PLAN OF CARE FOR MENTAL HEALTH TREATMENT AFTER IMPROVEMENT IN BRONCHITIS, IF PT CONTINUE TO COOPERATIVE WITHOUT INCREASED PSYCHOSIS WE MAY COULD AVOID 1013 FOR MENTAL HEALTH TREATMENT.
--- NOTE | 2018-02-22 11:57 | PCM.PROG ---
Progress Note - Progress Note for Day of Date of Exam: 02/22/18 - Subjective Subjective: 77 WF ER ADMISSION ON 02/19 WITH CONFUSION AND BRONCHITIS. PT CURRENTLY ON IV ATBX, RESP THERAPY. PT CALM AND COOPERATIVE AFTER RECEIVING HALDOL AFTER ADMISSION. WE HAD RESUMED PT'S HOME RISPERDAL AND LEXAPRO. NURSING STAFF REPORTS PT IS COOPERATIVE WITH MEDICAL PLAN OF CARE AT THIS TIME, CONT INUES WITH EPISODES OF CONFUSION WHICH IS STABLE DEMENTIA. PT ORIENTED TO SELF AND LOCATION. PT HAD BEEN ON IV SOLU MEDROL, WE D/C THIS AM DUE TO INCREASED AXIETY THIS AM. PT SITTING ON SIDE OF BED, STATING SHE IS READY TO GO HOME, PT STATES SHE FEELS BETTER AND HAS "ALOT TO DO AT HOME". WE REVIEWED LABS AND CXR RESULTS, ENCOURAGED PT TO CONTINUE WITH TREATMENT FOR ACUTE BRONCHITIS. WILL DISCUSS FAMILY, THEY WERE NOT PRESENT THIS AM - Past Medical Family Social History Past Med/Fam/Surg Hx: No changes since H&P Allergies: Allergies No Known Drug Allergies Allergy (Verified 08/03/17 13:49) - Review of Systems ROS: No change since H&P - Vital Signs and I&O's Vital Signs: Temperature 97.5 F Pulse Rate [Right Brachial] 80 Pulse Rate 82 Respiratory Rate 21 Blood Pressure [Right Arm] 135/66 Blood Pressure 115/57 O2 Sat by Pulse Oximetry 94 Intake and Output: Intake & Output 02/19/18 02/20/18 02/21/18 02/22/18 11:59 11:59 11:59 11:59 Intake Total 2245 / 2245 2173 / 2173 1742 / 1742 2403 / 2403 Output Total 0 / 0 Balance 2245 / 2245 2173 / 2173 1742 / 1742 2403 / 2403 - Physical Exam Oriented: Person Eyes: Normal Ear: Normal Nose: Normal Throat: Dry Respiratory: Diminished, Wheezes, Rhonchi Cardiovascular: Tachycardia : Normal Auscultation: Bowel Sounds: Normal Tenderness: Normal Skin: Decreased Turgur Musculoskeletal: Back:Lumbar Psychiatric: Anxiety Mood Description: Flat, Suspicious, Anxious Affect: Anxious Speech Pattern: Clear, Appropriate - Laboratory and Diagnostics Result Diagrams: 02/22/18 05:10 02/22/18 05:10 Labs: 02/21/18 10:18 Sputum - Expectorated Sputum Sputum Culture - Preliminary 02/21/18 10:18 Sputum - Expectorated Sputum - Final 02/18/18 10:36 Blood Blood Culture - Preliminary 02/18/18 10:48 Blood Blood Culture - Preliminary 02/18/18 15:08 Sputum - Expectorated Sputum Sputum Culture - Final 02/18/18 15:08 Sputum - Expectorated Sputum - Final Laboratory WBC 16.1 X10^3/uL (3.6-10.0) H 02/22/18 05:10 RBC 2.94 X10^6/uL (3.5-5.4) L 02/22/18 05:10 Hgb 9.6 g/dL (12.0-16.0) L 02/22/18 05:10 Hct 28.2 % (36.0-47.0) L 02/22/18 05:10 MCV 96.0 fL (80.0-100.0) 02/22/18 05:10 MCH 32.6 pg (27.0-34.0) 02/22/18 05:10 MCHC 34.0 g/dL (33.0-35.0) 02/22/18 05:10 RDW 14.0 % (11.6-16.5) 02/22/18 05:10 Plt Count 245 X10^3/uL (150.0-450.0) 02/22/18 05:10 Plt Count Comment Adequate (ADEQUATE) 02/22/18 05:10 MPV 8.3 fL (7.4-11.0) 02/22/18 05:10 Neut % (Auto) 92.4 % (42.0-75.0) H 02/22/18 05:10 Lymph % (Auto) 3.3 % (21.0-51.0) L 02/22/18 05:10 [place] % (Auto) 4.1 % (0.0-13.0) 02/22/18 05:10 Eos % (Auto) 0.0 % (0.9-2.9) L 02/22/18 05:10 Baso % (Auto) 0.2 % (0.2-1.0) 02/22/18 05:10 Neut # (Auto) 14.8 x10^3/uL (2.2-4.8) H 02/22/18 05:10 Lymph # (Auto) 0.5 X10^3/uL (1.3-2.9) L 02/22/18 05:10 [place] # (Auto) 0.7 x10^3/uL (0.3-0.8) 02/22/18 05:10 Eos # (Auto) 0.0 x10^3/uL (0.0-0.2) 02/22/18 05:10 Baso # (Auto) 0.0 X10^3/uL (0.0-0.1) 02/22/18 05:10 Absolute Nucleated RBC 0.0 /100WBC 02/22/18 05:10 Total Counted 100 02/22/18 05:10 Neutrophils % (Manual) 93 % (39-76) H 02/22/18 05:10 Lymphocytes % (Manual) 5 % (13-43) L 02/22/18 05:10 Monocytes % (Manual) 2 % (4-9) L 02/22/18 05:10 Plt Morphology Comment Normal (NORMAL) 02/22/18 05:10 RBC Morphology Normal (NORMAL) 02/22/18 05:10 INR Target Range - 02/18/18 10:48 INR 1.08 (0.8-1.3) 02/18/18 10:48 APTT 36.9 SECONDS (22.9-36.5) H 02/18/18 10:48 PTT Comment - 02/18/18 10:48 D-Dimer 1480 ng/mL (0-400) H* 02/18/18 10:48 Sodium 139 mmol/L (136-145) 02/22/18 05:10 Corrected Sodium 140 mmol/L (136-145) 02/22/18 05:10 Potassium 4.7 mmol/L (3.5-5.1) 02/22/18 05:10 Chloride 106 mmol/L (98-107) 02/22/18 05:10 Carbon Dioxide 24.8 mmol/L (21-32) 02/22/18 05:10 BUN 26 mg/dL (7-18) H 02/22/18 05:10 Creatinine 1.02 mg/dL (0.55-1.02) 02/22/18 05:10 Est GFR (MDRD) Af Amer > 60 (>60) 02/22/18 05:10 Est GFR (MDRD) Non-Af 56 (>60) L 02/22/18 05:10 Glucose 137 mg/dL (65-99) H 02/22/18 05:10 Calcium 8.3 mg/dL (8.5-10.1) L 02/22/18 05:10 Corrected Calcium 9.4 mg/dL (8.5-10.1) 02/22/18 05:10 Magnesium 2.0 mg/dL (1.7-2.9) 02/18/18 10:48 Total Bilirubin 0.20 mg/dL (0.2-1.0) 02/22/18 05:10 AST 26 Units/L (15-37) 02/22/18 05:10 ALT 61 Units/L (12-78) 02/22/18 05:10 Alkaline Phosphatase 76 Units/L (46-116) 02/22/18 05:10 Creatine Kinase 50 Units/L (26-192) 02/18/18 10:48 CK-MB (CK-2) 1.7 ng/mL (0-4.0) 02/18/18 10:48 CK/CKMB % Calc 3.4 % (<4) 02/18/18 10:48 Troponin I < 0.02 ng/mL (0-1.5) 02/18/18 10:48 Total Protein 5.8 g/dL (6.4-8.2) L 02/22/18 05:10 Albumin 2.6 g/dL (3.4-5.0) L 02/22/18 05:10 Globulin 3.2 g/dL (2.5-4.5) 02/22/18 05:10 Albumin/Globulin Ratio 0.8 Ratio (1.1-2.1) L 02/22/18 05:10 Specimen Type Catherized urine 02/18/18 11:32 Urine Color Yellow (YELLOW) 02/18/18 11:32 Urine Appearance Hazy (CLEAR) 02/18/18 11:32 Urine pH 5.0 (5.0 - 8.0) 02/18/18 11:32 Ur Specific Tok 1.015 (1.000-1.030) 02/18/18 11:32 Urine Protein 2+ (NEGATIVE) 02/18/18 11:32 Urine Glucose (UA) Negative (NEGATIVE) 02/18/18 11:32 Urine Ketones 1+ (NEGATIVE) 02/18/18 11:32 Urine Occult Blood 1+ (NEGATIVE) 02/18/18 11:32 Urine Nitrite Negative (NEGATIVE) 02/18/18 11:32 Urine Bilirubin Negative (NEGATIVE) 02/18/18 11:32 Urine Urobilinogen Normal (NORMAL) 02/18/18 11:32 Ur Leukocyte Esterase 1+ (NEGATIVE) 02/18/18 11:32 Urine RBC 0-2 /HPF (NONE SEEN) 02/18/18 11:32 Urine WBC 0-2 /HPF (NONE SEEN) 02/18/18 11:32 Ur Squamous Epith Cells Rare /HPF (NEGATIVE) 02/18/18 11:32 Urine Bacteria Negative /HPF (NEGATIVE) 02/18/18 11:32 Urine Mucus Few /HPF (NEGATIVE) 02/18/18 11:32 Ur Culture Indicated? No/not indicated 02/18/18 11:32 Urine Opiates Screen Negative (NEG=<300) 02/18/18 11:32 Urine Methadone Screen Negative (NEG=<300) 02/18/18 11:32 Ur Barbiturates Screen Negative (NEG=<200) 02/18/18 11:32 Ur Phencyclidine Scrn Negative (NEG=<25) 02/18/18 11:32 Ur Amphetamines Screen Negative (NEG=<1000) 02/18/18 11:32 U Benzodiazepines Scrn Negative (NEG=<200) 02/18/18 11:32 Urine Cocaine Screen Negative (NEG=<300) 02/18/18 11:32 U Marijuana (THC) Screen Negative (NEG=<50) 02/18/18 11:32 - Plan (1) Bronchitis Status: Inactive Plan: IV ANTIBIOTICS, RESP THERAPY. SUPPLEMENTAL O2, IV STEROIDS. BP CONTROL, REPEAT SPUTUM CULTURE. AM CXR (2) Altered mental state Status: Acute Plan: CT HEAD ON ADMISSION WITHOUT ACUTE FINDINGS. CARDIAC MONITORING, SUPPLEMENTAL O2 AGGRESSIVE RESP THERAPY. IV ATBX, SPUTUM AND BLOOD CULTURES ON ADMISSION. GENTLE IV HYDRATION, I&OS (3) COPD with acute exacerbation Status: Acute (4) Hypertension Status: Chronic (5) Agitation Status: Acute (6) Hallucination Status: Acute Plan: "TALKING TO PEOPLE" PER SON AND DAUGHTERS REPORTS. PRN HALDOL AND BENADRYL. [address] BUENO ON TUESDAY ARRANGE FOR TREATMENT FOR BEHAVIOR HEALTH AFTER MEDICALLY IMPROVED. (7) Paranoid behavior Status: Acute Plan: REFUSING NURSING CARE FOR ACUTE ILLNESS (8) Dementia with behavioral disturbance Status: Acute Plan: RESUMED RISPERDAL, LEXAPRO AND ARICEPT. CONTINUE PRN ANTI PSYCHOTICS, TREAT ACUTE ILLNESS. WILL DISCUSS WITH FAMILY PLAN OF CARE FOR MENTAL HEALTH TREATMENT AFTER IMPROVEMENT IN BRONCHITIS, IF PT CONTINUE TO COOPERATIVE WITHOUT INCREASED PSYCHOSIS WE MAY COULD AVOID 1013 FOR MENTAL HEALTH TREATMENT.
[2018-02-22] MEDS ORDERED: LEXAPRO ONE (20:10)
[2018-02-22] MEDS: LEXAPRO PO SCH (20:36)
[2018-02-22] MEDS: COLACE CAP 100 MG PO SCH (20:36)
[2018-02-22] MEDS: ARICEPT TAB 10 MG PO SCH (20:36)
[2018-02-23] MEDS: DUONEB 0.5 MG/3 MG NEB SCH ×6 (00:56→20:48)
[2018-02-23 06:35] LABS: BASOPHILS # (AUTO) 0.1 X10^3/uL (0.0-0.1); BASOPHILS % (AUTO) 0.4 % (0.2-1.0); EOSINOPHILS % (AUTO) 0.1 % (0.9-2.9); HEMATOCRIT 30.1 % (36.0-47.0); HEMOGLOBIN 10.3 g/dL (12.0-16.0); LYMPHOCYTES # (AUTO) 2.1 X10^3/uL (1.3-2.9); LYMPHOCYTES % (AUTO) 16.6 % (21.0-51.0); MEAN CORPUSCULAR HEMOGLOBIN 32.5 pg (27.0-34.0); MEAN CORPUSCULAR HGB CONC 34.1 g/dL (33.0-35.0); MEAN CORPUSCULAR VOLUME 95.2 fL (80.0-100.0); MEAN PLATELET VOLUME 8.7 fL (7.4-11.0); MONOCYTES # (AUTO) 1.2 x10^3/uL (0.3-0.8); MONOCYTES % (AUTO) 9.9 % (0.0-13.0); NEUTROPHILS # (AUTO) 9.2 x10^3/uL (2.2-4.8); PLATELET COUNT 207 X10^3/uL (150.0-450.0); RED BLOOD COUNT 3.16 X10^6/uL (3.5-5.4); WHITE BLOOD COUNT 12.6 X10^3/uL (3.6-10.0)
[2018-02-23 06:44] LABS: ALANINE AMINOTRANSFERASE 89 Units/L (12-78); ALBUMIN 2.5 g/dL (3.4-5.0); ALKALINE PHOSPHATASE 69 Units/L (46-116); ASPARTATE AMINO TRANSFERASE 35 Units/L (15-37); BLOOD UREA NITROGEN 27 mg/dL (7-18); CALCIUM 8.2 mg/dL (8.5-10.1); CHLORIDE 106 mmol/L (98-107); COR CA(FOR HYPOALB) 9.4 mg/dL (8.5-10.1); CREATININE 1.06 mg/dL (0.55-1.02); SODIUM 138 mmol/L (136-145); TOTAL PROTEIN 5.5 g/dL (6.4-8.2); eGFR NON BLACK RACES 53 (>60)
[2018-02-23 06:52] LABS: PLATELET MORPHOLOGY COMMENT NORMAL (NORMAL)
[2018-02-23] MEDS ORDERED: NS 1/2 1000 ML IV 1,000 ML IV ONE (08:13)
[2018-02-23] MEDS: MILK OF MAGNESIA PO SCH ×3 (08:24→20:59)
[2018-02-23] MEDS: LOVENOX INJ 80 MG SYR SC SCH (08:25)
[2018-02-23] MEDS: ROCEPHIN VIAL 1 GRAM IVP SCH (08:25)
[2018-02-23] MEDS: ROBITUSSIN DM PO SCH ×4 (08:25→20:59)
[2018-02-23] MEDS: LEVAQUIN PREMIX IV 500 MG 500 MG/100 ML BAG IV SCH (08:25)
[2018-02-23] MEDS: NS 1/2 1000 ML IV 1,000 ML IV SCH (08:25)
[2018-02-23] MEDS: DIFLUCAN 100 MG IV (MIX by PHARMACY)* 100 MG/50 ML BAG IV SCH (08:25)
[2018-02-23] MEDS: NICOTINE PATCH TD SCH (08:26)
[2018-02-23] MEDS: PULMICORT NEB TX 0.5 MG NEB SCH ×2 (09:31→20:48)
--- NOTE | 2018-02-23 14:02 | RAD ---
HISTORY: Acute bronchitis, cough, fever Study: Single-view of the chest Comparison: February 22, 2018 Findings: The patient is slightly rotated. The cardiac silhouette is unremarkable. Interstitial changes are seen throughout both lungs. Subsegmental atelectasis and/or scarring are noted within the right lower lobe. Persistent hazy opacification is again seen within the left lung base in keeping with atelectasis, infiltrate, and/or effusion. IMPRESSION: 1. Persistent left basilar airspace disease as noted above. Reported By:
--- NOTE | 2018-02-23 16:59 | PCM.PROG ---
Progress Note - Progress Note for Day of Date of Exam: 02/23/18 - Subjective Subjective: 77 WF ER ADMISSION ON 02/19 WITH CONFUSION AND BRONCHITIS. PT CURRENTLY ON IV ATBX, RESP THERAPY. PT HAS MILDLY PRODUCTIVE COUGH, IMPROVING WHEEZES. PT COOPERATIVE AFTER RECEIVING HALDOL AFTER ADMISSION AND RESUMED PT'S HOME RISPERDAL AND LEXAPRO. NURSING STAFF REPORTS PT IS COOPERATIVE WITH MEDICAL PLAN OF CARE AT THIS TIME, PT SITTING ON SIDE OF BED, STATING SHE IS READY TO GO HOME, PT STATES SHE FEELS BETTER AND HAS "ALOT TO DO AT HOME". PT CONTINUES WITH ANXIETY AND PARANOID BEHAVIOR, MORE CONTROLLED SINCE MEDICATED BUT FAMILY CONFIRMED PT IS DELUSIONAL. PLAN TO CLEAR PT MEDICALLY AND REFER TO BEHAVIOR HEALTH, FAMILY AGREES AND AWARE OF PLAN OF CARE. CT CHEST W/O TO EVALUATION ACU TE VS CHRONIC LUNG FINDINGS ON CXR. - Past Medical Family Social History Past Med/Fam/Surg Hx: No changes since H&P Allergies: Allergies No Known Drug Allergies Allergy (Verified 08/03/17 13:49) - Review of Systems ROS: No change since H&P - Vital Signs and I&O's Vital Signs: Temperature 98.0 F Pulse Rate [Right Brachial] 80 Pulse Rate 80 Respiratory Rate 30 Blood Pressure [Right Arm] 135/66 Blood Pressure 110/58 O2 Sat by Pulse Oximetry 95 Intake and Output: Intake & Output 02/21/18 02/22/18 02/23/18 02/24/18 11:59 11:59 11:59 11:59 Intake Total 1742 / 1742 2403 / 2403 1420 / 1420 720 / 720 Output Total 0 / 0 Balance 1742 / 1742 2403 / 2403 1420 / 1420 720 / 720 - Physical Exam Oriented: Person Eyes: Normal Ear: Normal Nose: Normal Throat: Dry Respiratory: Diminished, Wheezes (MILD LOWER EXPIRATORY) Cardiovascular: Tachycardia : Normal Auscultation: Bowel Sounds: Normal Tenderness: Normal Skin: Decreased Turgur Musculoskeletal: Back:Lumbar Psychiatric: Anxiety Mood Description: Flat, Suspicious, Anxious Affect: Anxious Speech Pattern: Clear, Appropriate - Laboratory and Diagnostics Result Diagrams: 02/23/18 05:53 02/23/18 05:53 Labs: 02/21/18 10:18 Sputum - Expectorated Sputum Sputum Culture - Final 02/21/18 10:18 Sputum - Expectorated Sputum - Final 02/18/18 10:36 Blood Blood Culture - Preliminary 02/18/18 10:48 Blood Blood Culture - Preliminary 02/18/18 15:08 Sputum - Expectorated Sputum Sputum Culture - Final 02/18/18 15:08 Sputum - Expectorated Sputum - Final Laboratory WBC 12.6 X10^3/uL (3.6-10.0) H 02/23/18 05:53 RBC 3.16 X10^6/uL (3.5-5.4) L 02/23/18 05:53 Hgb 10.3 g/dL (12.0-16.0) L 02/23/18 05:53 Hct 30.1 % (36.0-47.0) L 02/23/18 05:53 MCV 95.2 fL (80.0-100.0) 02/23/18 05:53 MCH 32.5 pg (27.0-34.0) 02/23/18 05:53 MCHC 34.1 g/dL (33.0-35.0) 02/23/18 05:53 RDW 14.0 % (11.6-16.5) 02/23/18 05:53 Plt Count 207 X10^3/uL (150.0-450.0) 02/23/18 05:53 Plt Count Comment Adequate (ADEQUATE) 02/23/18 05:53 MPV 8.7 fL (7.4-11.0) 02/23/18 05:53 Neut % (Auto) 73.0 % (42.0-75.0) 02/23/18 05:53 Lymph % (Auto) 16.6 % (21.0-51.0) L 02/23/18 05:53 [place] % (Auto) 9.9 % (0.0-13.0) 02/23/18 05:53 Eos % (Auto) 0.1 % (0.9-2.9) L 02/23/18 05:53 Baso % (Auto) 0.4 % (0.2-1.0) 02/23/18 05:53 Neut # (Auto) 9.2 x10^3/uL (2.2-4.8) H 02/23/18 05:53 Lymph # (Auto) 2.1 X10^3/uL (1.3-2.9) 02/23/18 05:53 [place] # (Auto) 1.2 x10^3/uL (0.3-0.8) H 02/23/18 05:53 Eos # (Auto) 0.0 x10^3/uL (0.0-0.2) 02/23/18 05:53 Baso # (Auto) 0.1 X10^3/uL (0.0-0.1) 02/23/18 05:53 Absolute Nucleated RBC 0.1 /100WBC 02/23/18 05:53 Total Counted 100 02/23/18 05:53 Neutrophils % (Manual) 65 % (39-76) 02/23/18 05:53 Lymphocytes % (Manual) 23 % (13-43) 02/23/18 05:53 Monocytes % (Manual) 12 % (4-9) H 02/23/18 05:53 Plt Morphology Comment Normal (NORMAL) 02/23/18 05:53 RBC Morphology Normal (NORMAL) 02/23/18 05:53 INR Target Range - 02/18/18 10:48 INR 1.08 (0.8-1.3) 02/18/18 10:48 APTT 36.9 SECONDS (22.9-36.5) H 02/18/18 10:48 PTT Comment - 02/18/18 10:48 D-Dimer 1480 ng/mL (0-400) H* 02/18/18 10:48 Sodium 138 mmol/L (136-145) 02/23/18 05:53 Corrected Sodium TNP 02/23/18 05:53 Potassium 4.9 mmol/L (3.5-5.1) 02/23/18 05:53 Chloride 106 mmol/L (98-107) 02/23/18 05:53 Carbon Dioxide 25.0 mmol/L (21-32) 02/23/18 05:53 BUN 27 mg/dL (7-18) H 02/23/18 05:53 Creatinine 1.06 mg/dL (0.55-1.02) H 02/23/18 05:53 Est GFR (MDRD) Af Amer > 60 (>60) 02/23/18 05:53 Est GFR (MDRD) Non-Af 53 (>60) L 02/23/18 05:53 Glucose 83 mg/dL (65-99) 02/23/18 05:53 Calcium 8.2 mg/dL (8.5-10.1) L 02/23/18 05:53 Corrected Calcium 9.4 mg/dL (8.5-10.1) 02/23/18 05:53 Magnesium 2.0 mg/dL (1.7-2.9) 02/18/18 10:48 Total Bilirubin 0.20 mg/dL (0.2-1.0) 02/23/18 05:53 AST 35 Units/L (15-37) 02/23/18 05:53 ALT 89 Units/L (12-78) H 02/23/18 05:53 Alkaline Phosphatase 69 Units/L (46-116) 02/23/18 05:53 Creatine Kinase 50 Units/L (26-192) 02/18/18 10:48 CK-MB (CK-2) 1.7 ng/mL (0-4.0) 02/18/18 10:48 CK/CKMB % Calc 3.4 % (<4) 02/18/18 10:48 Troponin I < 0.02 ng/mL (0-1.5) 02/18/18 10:48 Total Protein 5.5 g/dL (6.4-8.2) L 02/23/18 05:53 Albumin 2.5 g/dL (3.4-5.0) L 02/23/18 05:53 Globulin 3.0 g/dL (2.5-4.5) 02/23/18 05:53 Albumin/Globulin Ratio 0.8 Ratio (1.1-2.1) L 02/23/18 05:53 Specimen Type Catherized urine 02/18/18 11:32 Urine Color Yellow (YELLOW) 02/18/18 11:32 Urine Appearance Hazy (CLEAR) 02/18/18 11:32 Urine pH 5.0 (5.0 - 8.0) 02/18/18 11:32 Ur Specific Branch 1.015 (1.000-1.030) 02/18/18 11:32 Urine Protein 2+ (NEGATIVE) 02/18/18 11:32 Urine Glucose (UA) Negative (NEGATIVE) 02/18/18 11:32 Urine Ketones 1+ (NEGATIVE) 02/18/18 11:32 Urine Occult Blood 1+ (NEGATIVE) 02/18/18 11:32 Urine Nitrite Negative (NEGATIVE) 02/18/18 11:32 Urine Bilirubin Negative (NEGATIVE) 02/18/18 11:32 Urine Urobilinogen Normal (NORMAL) 02/18/18 11:32 Ur Leukocyte Esterase 1+ (NEGATIVE) 02/18/18 11:32 Urine RBC 0-2 /HPF (NONE SEEN) 02/18/18 11:32 Urine WBC 0-2 /HPF (NONE SEEN) 02/18/18 11:32 Ur Squamous Epith Cells Rare /HPF (NEGATIVE) 02/18/18 11:32 Urine Bacteria Negative /HPF (NEGATIVE) 02/18/18 11:32 Urine Mucus Few /HPF (NEGATIVE) 02/18/18 11:32 Ur Culture Indicated? No/not indicated 02/18/18 11:32 Urine Opiates Screen Negative (NEG=<300) 02/18/18 11:32 Urine Methadone Screen Negative (NEG=<300) 02/18/18 11:32 Ur Barbiturates Screen Negative (NEG=<200) 02/18/18 11:32 Ur Phencyclidine Scrn Negative (NEG=<25) 02/18/18 11:32 Ur Amphetamines Screen Negative (NEG=<1000) 02/18/18 11:32 U Benzodiazepines Scrn Negative (NEG=<200) 02/18/18 11:32 Urine Cocaine Screen Negative (NEG=<300) 02/18/18 11:32 U Marijuana (THC) Screen Negative (NEG=<50) 02/18/18 11:32 - Plan (1) Bronchitis Status: Inactive Plan: IV ANTIBIOTICS, RESP THERAPY. SUPPLEMENTAL O2,. BP CONTROL, REPEAT SPUTUM CULTURE. AM CXR (2) Altered mental state Status: Acute Plan: CT HEAD ON ADMISSION WITHOUT ACUTE FINDINGS. CARDIAC MONITORING, SUPPLEMENTAL O2 AGGRESSIVE RESP THERAPY. IV ATBX, SPUTUM AND BLOOD CULTURES COLLECTED ON ADMISSION. GENTLE IV HYDRATION, I&OS (3) COPD with acute exacerbation Status: Acute (4) Hypertension Status: Chronic (5) Agitation Status: Acute (6) Hallucination Status: Acute Plan: "TALKING TO PEOPLE" PER SON AND DAUGHTERS REPORTS. PRN HALDOL AND BENADRYL. [address] BUENO ARRANGE FOR TREATMENT FOR BEHAVIOR HEALTH AFTER MEDICALLY IMPROVED. (7) Paranoid behavior Status: Acute Plan: REFUSING NURSING CARE FOR ACUTE ILLNESS (8) Dementia with behavioral disturbance Status: Acute Plan: RESUMED RISPERDAL, LEXAPRO AND ARICEPT. CONTINUE PRN ANTI PSYCHOTICS, TREAT ACUTE ILLNESS. WILL DISCUSS WITH FAMILY PLAN OF CARE FOR MENTAL HEALTH TREATMENT AFTER IMPROVEMENT IN BRONCHITIS
--- NOTE | 2018-02-23 17:30 | CT ---
CT chest without contrast Indication: Acute bronchitis with cough and fever Comparison: 02/23/2018 Technique: Helical images through the chest without contrast. Coronal and sagittal reformats provided. Findings: Limited images through the upper abdomen shows gallstones in the gallbladder. There is left adrenal adenoma. Vascular calcifications noted. Prominent right extrarenal pelvis noted. Review of bone windows shows no destructive osseous lesion. Chest: Aortic arch branch vessels show no acute abnormality. Heart size is normal. Coronary artery calcifications are noted. There is dependent atelectasis patchy ground-glass opacities are seen in the right upper lobe. Small left effusion is noted. The entire left lower lobe is atelectatic. Mucous plugging may be present on axial image 33 but endobronchial lesion should be excluded Impression: 1. Left lower lobe atelectasis, possibly from mucous plugging. Endobronchial lesion not completely excluded. Follow-up to resolution to exclude underlying lesion. If this does not resolve, bronchoscopy may be needed 2. Patchy ground-glass opacities in the right upper lung, age indeterminate but possibly inflammatory or infectious. Partial atelectasis of the right middle lobe with scarring. 3. Benign left adrenal adenoma, vascular plaque and other findings as above Reported By:
[2018-02-23] MEDS ORDERED: LEXAPRO ONE (20:08)
[2018-02-23] MEDS: LEXAPRO PO SCH (20:58)
[2018-02-23] MEDS: COLACE CAP 100 MG PO SCH (20:59)
[2018-02-23] MEDS: ARICEPT TAB 10 MG PO SCH (20:59)
[2018-02-24] MEDS: DUONEB 0.5 MG/3 MG NEB SCH ×3 (01:33→09:30)
[2018-02-24] MEDS: NS 1/2 1000 ML IV 1,000 ML IV SCH ×2 (02:32→09:05)
[2018-02-24 06:29] LABS: BASOPHILS # (AUTO) 0.1 X10^3/uL (0.0-0.1); BASOPHILS % (AUTO) 0.7 % (0.2-1.0); EOSINOPHILS # (AUTO) 0.1 x10^3/uL (0.0-0.2); EOSINOPHILS % (AUTO) 0.7 % (0.9-2.9); HEMATOCRIT 31.6 % (36.0-47.0); HEMOGLOBIN 10.8 g/dL (12.0-16.0); LYMPHOCYTES # (AUTO) 2.2 X10^3/uL (1.3-2.9); LYMPHOCYTES % (AUTO) 20.7 % (21.0-51.0); MEAN CORPUSCULAR HEMOGLOBIN 32.8 pg (27.0-34.0); MEAN CORPUSCULAR HGB CONC 34.2 g/dL (33.0-35.0); MEAN CORPUSCULAR VOLUME 96.1 fL (80.0-100.0); MEAN PLATELET VOLUME 8.6 fL (7.4-11.0); MONOCYTES # (AUTO) 0.9 x10^3/uL (0.3-0.8); NEUTROPHILS # (AUTO) 7.2 x10^3/uL (2.2-4.8); NEUTROPHILS % (AUTO) 68.9 % (42.0-75.0); PLATELET COUNT 234 X10^3/uL (150.0-450.0); RED BLOOD COUNT 3.29 X10^6/uL (3.5-5.4); RED CELL DISTRIBUTION WIDTH 14.2 % (11.6-16.5); WHITE BLOOD COUNT 10.5 X10^3/uL (3.6-10.0)
[2018-02-24 06:42] LABS: ALANINE AMINOTRANSFERASE 68 Units/L (12-78); ALBUMIN 2.5 g/dL (3.4-5.0); ALKALINE PHOSPHATASE 74 Units/L (46-116); ASPARTATE AMINO TRANSFERASE 22 Units/L (15-37); BLOOD UREA NITROGEN 26 mg/dL (7-18); CARBON DIOXIDE 26.9 mmol/L (21-32); CHLORIDE 103 mmol/L (98-107); COR CA(FOR HYPOALB) 9.2 mg/dL (8.5-10.1); CREATININE 1.01 mg/dL (0.55-1.02); SODIUM 138 mmol/L (136-145); TOTAL PROTEIN 5.5 g/dL (6.4-8.2); eGFR NON BLACK RACES 56 (>60)
[2018-02-24] MEDS: ROCEPHIN VIAL 1 GRAM IVP SCH (08:39)
[2018-02-24] MEDS: ROBITUSSIN DM PO SCH ×3 (08:51→16:11)
[2018-02-24] MEDS: LOVENOX INJ 80 MG SYR SC SCH (08:51)
[2018-02-24] MEDS: LEVAQUIN PREMIX IV 500 MG 500 MG/100 ML BAG IV SCH (08:52)
[2018-02-24] MEDS: MILK OF MAGNESIA PO SCH (08:54)
[2018-02-24] MEDS: NICOTINE PATCH TD SCH (08:54)
[2018-02-24] MEDS ORDERED: DIFLUCAN 200 MG IV PREMIX* 200 MG/100 ML BAG IV SCH (09:00)
[2018-02-24] MEDS ORDERED: ZITHROMAX INJ 500 MG VIAL 500 MG in NS 250 ML IV 250 ML IV SCH (09:00)
[2018-02-24] MEDS: PULMICORT NEB TX 0.5 MG NEB SCH (09:30)
[2018-02-24 20:34] VITALS: BP 104/57
== END 2018-02-24 20:30 | DRG 202 ==
LOC: ER 10:32 → ICU 10:32
PROVIDERS: ADMIT Internal Medicine; ATTEND Internal Medicine
DX: F41.8 Other specified anxiety disorders; J20.8 Acute bronchitis due to other specified organisms; I10 Essential (primary) hypertension; F22 Delusional disorders; F03.91 Unspecified dementia, unspecified severity, with behavioral disturbance; J44.1 Chronic obstructive pulmonary disease with (acute) exacerbation; R26.89 Other abnormalities of gait and mobility; R06.02 Shortness of breath; R41.82 Altered mental status, unspecified; F60.0 Paranoid personality disorder; R79.1 Abnormal coagulation profile
CPT/HCPCS: 36415; 70450; 71010; 71045; 71250; 80053; 80307; 81001; 82550; 82553; 83735; 84484; 85025; 85378; 85610; 85730; 87040; 87070; 87205; 93005; 93010; 94640; 96365; 96367; 96372; 96374; 96375; 97110; 97116; 97163; 97166; 97530; 97535; 99284; A4222; G0378; G0434; J0456; J0696; J1200; J1450; J1630; J1650; J1956; J2920; J2930; J3360; J3490; J7030; J7050; J7620; J7626

== ENCOUNTER 2021-06-10 10:31 | Inpatient (IN) ==
[2021-06-10] MEDS ORDERED: NS 1,000 ML IV 1,000 ML IV ONE ×4 (10:56→16:50)
[2021-06-10] MEDS ORDERED: NS 1,000 ML IV 1,000 ML ONE ×3 (11:09→17:12)
--- NOTE | 2021-06-10 11:30 | RAD ---
HISTORYHYPOTENSION COPD, HTNSTUDYCHEST, 1 VIEWCOMPARISONNoneFINDINGSThe trachea is midline. The cardiac silhouette is unremarkable. The lungs are clear without focal infiltrate or effusion. The bony thorax is unremarkable.IMPRESSIONNo acute cardiopulmonary findings .Electronically signed by: SLIME NGO (Jun 10, 2021 11:30:07)
[2021-06-10 11:45] LABS: BASOPHILS # (AUTO) 0.1 X10^3/uL (0.0-0.1); BASOPHILS % (AUTO) 0.2 % (0.2-1.0); HEMATOCRIT 31.7 % (36.0-47.0); HEMOGLOBIN 10.5 g/dL (12.0-16.0); LYMPHOCYTES # (AUTO) 1.5 X10^3/uL (1.3-2.9); LYMPHOCYTES % (AUTO) 4.9 % (21.0-51.0); MEAN CORPUSCULAR HEMOGLOBIN 30.7 pg (27.0-34.0); MEAN PLATELET VOLUME 7.8 fL (7.4-11.0); MONOCYTES # (AUTO) 0.9 x10^3/uL (0.3-0.8); MONOCYTES % (AUTO) 2.9 % (0.0-13.0); NEUTROPHILS # (AUTO) 28.5 x10^3/uL (2.2-4.8); RED BLOOD COUNT 3.41 X10^6/uL (3.5-5.4); RED CELL DISTRIBUTION WIDTH 15.5 % (11.6-16.5)
[2021-06-10 11:49] LABS: BILIRUBIN,URINE NEGATIVE (NEGATIVE); BLOOD/HEMOGLOBIN,URINE 4+ (NEGATIVE); GLUCOSE, URINE NEGATIVE (NEGATIVE); KETONES,URINE 1+ (NEGATIVE); LEUKOCYTE ESTERASE ,URINE 3+ (NEGATIVE); NITRITES,URINE NEGATIVE (NEGATIVE); PROTEIN,URINE 4+ (NEGATIVE); UROBILINOGEN,URINE 1+ (NORMAL)
[2021-06-10 11:49] LABS: LACTIC ACID 1.1 mmol/L (0.4-2.0)
[2021-06-10 11:52] LABS: APPEARANCE,URINE TURBID (CLEAR); COLOR,URINE GREEN (YELLOW)
[2021-06-10 12:00] LABS: BACTERIA,URINE 1+ /HPF (NEGATIVE); SQUAMOUS EPITHELIAL CELL,UR RARE /HPF (NEGATIVE)
[2021-06-10 12:12] LABS: ALANINE AMINOTRANSFERASE 11 Units/L (12-78); ALBUMIN 1.9 g/dL (3.4-5.0); ALKALINE PHOSPHATASE 125 Units/L (46-116); ASPARTATE AMINO TRANSFERASE 17 Units/L (15-37); BLOOD UREA NITROGEN 59 mg/dL (7-18); CALCIUM 8.4 mg/dL (8.5-10.1); CARBON DIOXIDE 23.9 mmol/L (21-32); CHLORIDE 97 mmol/L (98-107); CKMB % 3.1 % (<4); COR CA(FOR HYPOALB) 10.1 mg/dL (8.5-10.1); CREATINE KINASE 238 Units/L (26-192); CREATININE 2.08 mg/dL (0.55-1.02); SODIUM 128 mmol/L (136-145); TOTAL PROTEIN 5.7 g/dL (6.4-8.2); eGFR NON BLACK RACES 24 (>60)
--- NOTE | 2021-06-10 12:12 | DR.GENAD ---
HPI Time Seen Time Seen by Provider: 06/10/21 10:56 PCP Primary Care Physician: Yuko Pedroza HPI Comment HPI Comment: An 80 y/o female presenting via EMS with a sacral wound. The story is that shee has been recliner bound for months (prior to this, she was ambulatory with aid) and the wound noted x 2 weeks. There is no explanation as to why she lost ambulatory function. Complaint/Symptoms Chief Complaint:: Pt c/o wound to sacral area. She states this started about 2 weeks ago. Large stage 5 wound noted with foul odor and brown drainage. Pt states she has bed bed bound for three months. She states " I just quit walking." COVID-19 Coronavirus risk:travel/contact w/high risk person: No Has patient experienced Coronavirus symptoms: No Nurses notes reviewed Nurses Notes Review: Yes Source History Provided: Patient and EMS Mode of Arrival Mode of Arrival: Stretcher Timing Onset of Chief Complaint: 06/10/21 Came on: Gradually Location Location: buttock and sacrum PMH PMH Past Medical History: Yes Past Medical History: Anxiety, Arthritis, COPD and Hypertension Past Surgical History: No Family History History of Family Medical Conditions: Yes Family Medical History: Diabetes Mellitus, Cancer, Heart Failure and Hypertension Social History Does patient currently use any type of tobacco product: No Have you used tobacco products in the last 12 months: No Type of Tobacco Use: None Does any household member use tobacco: No Alcohol Use: None Do you use any recreational Drugs:: No Lives With: Family Lives Where: Home Travel Risk Coronavirus risk:travel/contact w/high risk person: No Has patient experienced Coronavirus symptoms: No Infectious screening In the last 2 months have you had wt loss of >10#?: NO Have you had fever, night sweats or hemotysis?: No Have you traveled outside the country in the last 6 months?: No Isolation: Standard ROS Review of Systems Constitutional: No Symptoms Reported Eyes: No Symptoms Reported ENTM: No Symptoms Reported Respiratoy: No Symptoms Reported Cardiovascular: No Symptoms Reported Gastrointestinal/Abdominal: No Symptoms Reported Genitourinary: No Symptoms Reported Neurological: No Symptoms Reported Musculoskeletal: No Symptoms Reported Integumentary: Other (wound on buttock) Hematologic/Lymphatic: No Symptoms Reported Endocrine: [place] Psychiatric: No Symptoms Reported PE Vital Signs Vitals: Temperature 97.9 F Pulse Rate 86 Respiratory Rate 20 Blood Pressure [Right Arm] 135/66 Blood Pressure 76/40 O2 Sat by Pulse Oximetry 95 General Limitations: No Limitations General Appearance: Alert and In No Apparent Distress Head Head Exam: Normal Inspection, Atraumatic and Normocephalic Eyes Eye exam: Normal Appearance and EOMI ENT ENT Exam: Normal Exam, Normal Oropharynx, Normal External Ear Exam and Mucous Membranes Moist Neck Neck Exam: Normal Inspection, Full ROM and Trachea Midline Chest Chest Inspection: Normal Inspection and Symmetric Chest Wall Rise Respiratory Respiratory Exam: Normal Lung Sounds Bilat Cardiovascular Cardiovascular Exam: Regular Rate, Normal Rhythm, Normal Heart Sounds, +S1 and +S2 Abdominal Exam Abdominal Exam: Normal Inspection, Normal Bowel Sounds and Soft Extremities Extremities Exam: Normal Inspection Neurologic Neurological Exam: Alert and Other (oriented to self and conversant.) Psychiatric Psychiatric Exam: Normal Affect and Normal Mood Skin Skin Exam: Other (A large almost circular (about 12 cm), stage 4 ulcer medially on her Rt. buttock and extending on the sacrum/coccyx. ) COURSE Reevaluation 1st: Unchanged Education/Counseling Education/Counseling: Patient, Family, Education and Counseling Educated On: Treatment, Diagnosis, Prognosis and Needs for Follow Up ROR Labs Reviewed Laboratory Results Reviewed?: Yes Result Diagrams: 06/10/21 11:16 06/10/21 11:16 Laboratory: WBC 31.0 X10^3/uL (3.6-10.0) H* 06/10/21 11:16 RBC 3.41 X10^6/uL (3.5-5.4) L 06/10/21 11:16 Hgb 10.5 g/dL (12.0-16.0) L 06/10/21 11:16 Hct 31.7 % (36.0-47.0) L 06/10/21 11:16 MCV 93.0 fL (80.0-100.0) 06/10/21 11:16 MCH 30.7 pg (27.0-34.0) 06/10/21 11:16 MCHC 33.0 g/dL (33.0-35.0) 06/10/21 11:16 RDW 15.5 % (11.6-16.5) 06/10/21 11:16 Plt Count 433 X10^3/uL (150.0-450.0) 06/10/21 11:16 Plt Count Comment Adequate (ADEQUATE) 06/10/21 11:16 MPV 7.8 fL (7.4-11.0) 06/10/21 11:16 Neut % (Auto) 92.0 % (42.0-75.0) H 06/10/21 11:16 Lymph % (Auto) 4.9 % (21.0-51.0) L 06/10/21 11:16 [place] % (Auto) 2.9 % (0.0-13.0) 06/10/21 11:16 Eos % (Auto) 0.0 % (0.9-2.9) L 06/10/21 11:16 Baso % (Auto) 0.2 % (0.2-1.0) 06/10/21 11:16 Neut # (Auto) 28.5 x10^3/uL (2.2-4.8) H 06/10/21 11:16 Lymph # (Auto) 1.5 X10^3/uL (1.3-2.9) 06/10/21 11:16 [place] # (Auto) 0.9 x10^3/uL (0.3-0.8) H 06/10/21 11:16 Eos # (Auto) 0.0 x10^3/uL (0.0-0.2) 06/10/21 11:16 Baso # (Auto) 0.1 X10^3/uL (0.0-0.1) 06/10/21 11:16 Absolute Nucleated RBC 0.0 /100WBC 06/10/21 11:16 Total Counted 100 06/10/21 11:16 Neutrophils % (Manual) 92 % (39-76) H 06/10/21 11:16 Lymphocytes % (Manual) 5 % (13-43) L 06/10/21 11:16 Monocytes % (Manual) 3 % (4-9) L 06/10/21 11:16 Plt Morphology Comment Normal (NORMAL) 06/10/21 11:16 RBC Morphology Normal (NORMAL) 06/10/21 11:16 Sodium 128 mmol/L (136-145) L 06/10/21 11:16 Corrected Sodium TNP 06/10/21 11:16 Potassium 4.8 mmol/L (3.5-5.1) 06/10/21 11:16 Chloride 97 mmol/L (98-107) L 06/10/21 11:16 Carbon Dioxide 23.9 mmol/L (21-32) 06/10/21 11:16 BUN 59 mg/dL (7-18) H 06/10/21 11:16 Creatinine 2.08 mg/dL (0.55-1.02) H 06/10/21 11:16 Est GFR (MDRD) Af Amer 29 (>60) L 06/10/21 11:16 Est GFR (MDRD) Non-Af 24 (>60) L 06/10/21 11:16 Glucose 103 mg/dL (65-99) H 06/10/21 11:16 Lactic Acid 1.1 mmol/L (0.4-2.0) 06/10/21 11:16 Calcium 8.4 mg/dL (8.5-10.1) L 06/10/21 11:16 Corrected Calcium 10.1 mg/dL (8.5-10.1) 06/10/21 11:16 Total Bilirubin 0.30 mg/dL (0.2-1.0) 06/10/21 11:16 AST 17 Units/L (15-37) 06/10/21 11:16 ALT 11 Units/L (12-78) L 06/10/21 11:16 Alkaline Phosphatase 125 Units/L (46-116) H 06/10/21 11:16 Creatine Kinase 238 Units/L (26-192) H 06/10/21 11:16 CK-MB (CK-2) 7.3 ng/mL (0-4.0) H* 06/10/21 11:16 CK/CKMB % Calc 3.1 % (<4) 06/10/21 11:16 Troponin I High Sens 7.4 ng/L (4.0-60.0) 06/10/21 11:16 Total Protein 5.7 g/dL (6.4-8.2) L 06/10/21 11:16 Albumin 1.9 g/dL (3.4-5.0) L 06/10/21 11:16 Globulin 3.8 g/dL (2.5-4.5) 06/10/21 11:16 Albumin/Globulin Ratio 0.5 Ratio (1.1-2.1) L 06/10/21 11:16 Specimen Type Catherized urine 06/10/21 11:34 Urine Color Green (YELLOW) 06/10/21 11:34 Urine Appearance Turbid (CLEAR) 06/10/21 11:34 Urine pH 8.0 (5.0 - 8.0) 06/10/21 11:34 Ur Specific [place] 1.015 (1.000-1.030) 06/10/21 11:34 Urine Protein 4+ (NEGATIVE) 06/10/21 11:34 Urine Glucose (UA) Negative (NEGATIVE) 06/10/21 11:34 Urine Ketones 1+ (NEGATIVE) 06/10/21 11:34 Urine Blood 4+ (NEGATIVE) 06/10/21 11:34 Urine Nitrite Negative (NEGATIVE) 06/10/21 11:34 Urine Bilirubin Negative (NEGATIVE) 06/10/21 11:34 Urine Urobilinogen 1+ (NORMAL) 06/10/21 11:34 Ur Leukocyte Esterase 3+ (NEGATIVE) 06/10/21 11:34 Urine RBC 5-10 /HPF (0-3) A 06/10/21 11:34 Urine WBC Tntc /HPF (0-5) A 06/10/21 11:34 Ur Squamous Epith Cells Rare /HPF (NEGATIVE) 06/10/21 11:34 Urine Bacteria 1+ /HPF (NEGATIVE) 06/10/21 11:34 Ur Culture Indicated? Yes/culture set up 06/10/21 11:34 SARS CoV-2 RNA Rapid NEVAEH Negative (NEGATIVE) 06/10/21 11:19 Opioid Opioid Risk Tool Age ([place]man box if 16-45): No History of Preadolescent Sexual Abuse: No Total: 0 Total Score Risk Category: Low Risk Copyright: [facility] predicting aberrant behaviors Diagnosis Discharge Problem: Acute hyponatremia, Azotemia, Acute UTI, Decubitus ulcer of sacral region, stage 4 Sepsis Qualifiers: Sepsis type: sepsis due to unspecified organism Sepsis acute organ dysfunction status: with acute organ dysfunction Severe sepsis acute organ dysfunction type: acute renal failure Acute renal failure type: unspecified Severe sepsis shock status: with septic shock Qualified Code(s): A41.9 - Sepsis, unspecified organism ADDITIONAL NOTES Additional Notes Additional Notes: Name: MORIAH RAMOS FAcct#: [id number]: [id number] : 1940ex: FLocation: ER Order Number(s): [id number](s):CHEST, 1 VIEW Ordering Physician: ISREAL HALL Primary Care: Ivy Pedroza Service Date: 06/10/21 Service Time: 1104 HISTORY HYPOTENSION COPD, HTN STUDY CHEST, 1 VIEW COMPARISON None FINDINGS The trachea is midline. The cardiac silhouette is unremarkable. The lungs are clear without focal infiltrate or effusion. The bony thorax is unremarkable. IMPRESSION No acute cardiopulmonary findings . Electronically signed by: SLIME NGO (Jun 10, 2021 11:30:07) Report Electronically signed: 06/10/21 1130 CC: Isreal Hall
[2021-06-10 12:13] LABS: CREATINE KINASE MB 7.3 ng/mL (0-4.0)
[2021-06-10 12:19] LABS: PLATELET MORPHOLOGY COMMENT NORMAL (NORMAL)
[2021-06-10] MEDS ORDERED: ROCEPHIN VIAL 1 GRAM 1 G in NS 100 ML IV 100 ML IV SCH (12:45)
[2021-06-10] MEDS ORDERED: DOPAMINE IV PREMIX 400 MG/250 ML 400 MG/250 ML BAG IV ONE (13:21)
[2021-06-10] MEDS ORDERED: VANCOMYCIN IV *PREMIX 1 G/200 ML BAG 1 G/200 ML PIGGYBACK IV SCH (13:30)
[2021-06-10] MEDS ORDERED: ROCEPHIN 1 GRAM IV PREMIX 1 G/50 ML IV.SOLN. IV ONE ×2 (13:48→13:51)
[2021-06-10] MEDS: DOPAMINE IV PREMIX 400 MG/250 ML 400 MG/250 ML BAG IV PRN ×2 (14:52→20:30)
--- NOTE | 2021-06-10 15:01 | DR.H&P ---
H&P History & Physical for Day of: H&P Date: 06/10/21 Chief Complaint Chief Complaint: Sacral wound Generalized weakness Sepsis Allergies Allergies Allergy/AdvReac Type Severity Reaction Status Date / Time No Known Drug Allergies Allergy Verified 06/10/21 10:44 History of Present Illness History of Present Illness: Pt is a 80 year old female past medical history of Hypertension, COPD, OA, presenting with acute hypotension, generalized weakness, and sacral ulcer wound. Pt arrived via EMS, she states she has been non- ambulatory for the past 3 months and has been "recliner bound". She does not states any particular reason except that her legs have "felt heavy". On examination she was found to have large sacral ulcer with foul odor and drainage. Labs/imaging: Wbc 31, Hgb 10.5, Plt 433, Na 128, K 4.8, Creatinine 2.08, Glucose 103, LA 1.1, Troponin negative, COVID-19 negative, CXR was obtained that revealed: no acute cardiopulmonary findings. UA: consistent with infection, Urine and Blood cultures pending. Pt was given 2L IVF NS bolus, she still remains hypotensive, will order another bolus and start on IVF NS@150ml/h. She is also requiring Dopamine gtt to keep MAP>65. Start on antibiotics: IV Vancomycin, IV Zosyn, and IV Flagyl. Hold nephrotoxic agents at this time. Surgery consulted for sacral wound. Pt requiring vasopressor support. Monitor cl osely in the ICU, and follow up labs. Critical care time spent 30-74 minutes in clinical assessment, reviewing labs/imaging, decision making, and documentation. Past Medical History Past Medical History: Anxiety, Arthritis, COPD and Hypertension Family History Family Medical History: Diabetes Mellitus, Cancer, Heart Failure and Hypertension Social History Does patient currently use any type of tobacco product: No Have you used tobacco products in the last 12 months: No Type of Tobacco Use: None Does any household member use tobacco: No Alcohol Use: None Medications Home Medications: No Known Drug Allergies Allergy (Verified 06/10/21 10:44) CONTINUE taking the following medications carbidopa-levodopa 1 tab PO TID 06/10/21 [History] esomeprazole magnesium 20 mg PO ONCE 06/10/21 [History] ferrous sulfate [FeroSul] 325 mg PO BID 06/10/21 [History] levothyroxine 50 mcg PO DAILY 06/10/21 [History] memantine 5 mg PO BID 06/10/21 [History] Labs Result Diagrams: 06/11/21 04:20 06/11/21 04:20 Labs: Laboratory WBC 31.0 X10^3/uL (3.6-10.0) H* 06/10/21 11:16 RBC 3.41 X10^6/uL (3.5-5.4) L 06/10/21 11:16 Hgb 10.5 g/dL (12.0-16.0) L 06/10/21 11:16 Hct 31.7 % (36.0-47.0) L 06/10/21 11:16 MCV 93.0 fL (80.0-100.0) 06/10/21 11:16 MCH 30.7 pg (27.0-34.0) 06/10/21 11:16 MCHC 33.0 g/dL (33.0-35.0) 06/10/21 11:16 RDW 15.5 % (11.6-16.5) 06/10/21 11:16 Plt Count 433 X10^3/uL (150.0-450.0) 06/10/21 11:16 Plt Count Comment Adequate (ADEQUATE) 06/10/21 11:16 MPV 7.8 fL (7.4-11.0) 06/10/21 11:16 Neut % (Auto) 92.0 % (42.0-75.0) H 06/10/21 11:16 Lymph % (Auto) 4.9 % (21.0-51.0) L 06/10/21 11:16 [place] % (Auto) 2.9 % (0.0-13.0) 06/10/21 11:16 Eos % (Auto) 0.0 % (0.9-2.9) L 06/10/21 11:16 Baso % (Auto) 0.2 % (0.2-1.0) 06/10/21 11:16 Neut # (Auto) 28.5 x10^3/uL (2.2-4.8) H 06/10/21 11:16 Lymph # (Auto) 1.5 X10^3/uL (1.3-2.9) 06/10/21 11:16 [place] # (Auto) 0.9 x10^3/uL (0.3-0.8) H 06/10/21 11:16 Eos # (Auto) 0.0 x10^3/uL (0.0-0.2) 06/10/21 11:16 Baso # (Auto) 0.1 X10^3/uL (0.0-0.1) 06/10/21 11:16 Absolute Nucleated RBC 0.0 /100WBC 06/10/21 11:16 Total Counted 100 06/10/21 11:16 Neutrophils % (Manual) 92 % (39-76) H 06/10/21 11:16 Lymphocytes % (Manual) 5 % (13-43) L 06/10/21 11:16 Monocytes % (Manual) 3 % (4-9) L 06/10/21 11:16 Plt Morphology Comment Normal (NORMAL) 06/10/21 11:16 RBC Morphology Normal (NORMAL) 06/10/21 11:16 Sodium 128 mmol/L (136-145) L 06/10/21 11:16 Corrected Sodium TNP 06/10/21 11:16 Potassium 4.8 mmol/L (3.5-5.1) 06/10/21 11:16 Chloride 97 mmol/L (98-107) L 06/10/21 11:16 Carbon Dioxide 23.9 mmol/L (21-32) 06/10/21 11:16 BUN 59 mg/dL (7-18) H 06/10/21 11:16 Creatinine 2.08 mg/dL (0.55-1.02) H 06/10/21 11:16 Est GFR (MDRD) Af Amer 29 (>60) L 06/10/21 11:16 Est GFR (MDRD) Non-Af 24 (>60) L 06/10/21 11:16 Glucose 103 mg/dL (65-99) H 06/10/21 11:16 Lactic Acid 1.1 mmol/L (0.4-2.0) 06/10/21 11:16 Calcium 8.4 mg/dL (8.5-10.1) L 06/10/21 11:16 Corrected Calcium 10.1 mg/dL (8.5-10.1) 06/10/21 11:16 Total Bilirubin 0.30 mg/dL (0.2-1.0) 06/10/21 11:16 AST 17 Units/L (15-37) 06/10/21 11:16 ALT 11 Units/L (12-78) L 06/10/21 11:16 Alkaline Phosphatase 125 Units/L (46-116) H 06/10/21 11:16 Creatine Kinase 238 Units/L (26-192) H 06/10/21 11:16 CK-MB (CK-2) 7.3 ng/mL (0-4.0) H* 06/10/21 11:16 CK/CKMB % Calc 3.1 % (<4) 06/10/21 11:16 Troponin I High Sens 7.4 ng/L (4.0-60.0) 06/10/21 11:16 Total Protein 5.7 g/dL (6.4-8.2) L 06/10/21 11:16 Albumin 1.9 g/dL (3.4-5.0) L 06/10/21 11:16 Globulin 3.8 g/dL (2.5-4.5) 06/10/21 11:16 Albumin/Globulin Ratio 0.5 Ratio (1.1-2.1) L 06/10/21 11:16 TSH 3rd Generation 4.075 uIU/mL (0.358-3.74) H 06/10/21 11:16 Specimen Type Catherized urine 06/10/21 11:34 Urine Color Green (YELLOW) 06/10/21 11:34 Urine Appearance Turbid (CLEAR) 06/10/21 11:34 Urine pH 8.0 (5.0 - 8.0) 06/10/21 11:34 Ur Specific [place] 1.015 (1.000-1.030) 06/10/21 11:34 Urine Protein 4+ (NEGATIVE) 06/10/21 11:34 Urine Glucose (UA) Negative (NEGATIVE) 06/10/21 11:34 Urine Ketones 1+ (NEGATIVE) 06/10/21 11:34 Urine Blood 4+ (NEGATIVE) 06/10/21 11:34 Urine Nitrite Negative (NEGATIVE) 06/10/21 11:34 Urine Bilirubin Negative (NEGATIVE) 06/10/21 11:34 Urine Urobilinogen 1+ (NORMAL) 06/10/21 11:34 Ur Leukocyte Esterase 3+ (NEGATIVE) 06/10/21 11:34 Urine RBC 5-10 /HPF (0-3) A 06/10/21 11:34 Urine WBC Tntc /HPF (0-5) A 06/10/21 11:34 Ur Squamous Epith Cells Rare /HPF (NEGATIVE) 06/10/21 11:34 Urine Bacteria 1+ /HPF (NEGATIVE) 06/10/21 11:34 Ur Culture Indicated? Yes/culture set up 06/10/21 11:34 SARS CoV-2 RNA Rapid NEVAEH Negative (NEGATIVE) 06/10/21 11:19 Review of Systems Constitutional: Chills and Weakness Eyes: No Symptoms Reported ENT: No Symptoms Reported Respiratory: No Symptoms Reported Cardiovascular: No Symptoms Reported Gastrointestinal: No Symptoms Reported Genitourinary: Dysuria Musculoskeletal: Back Pain Skin: Wound (large sacral) Neurological: Other Physical Exam Vital Signs: Temperature 97.9 F Pulse Rate [Left Radial] 99 Pulse Rate 99 Respiratory Rate 20 Blood Pressure [Right Arm] 104/56 Blood Pressure 104/56 O2 Sat by Pulse Oximetry 98 Oriented: Normal Eyes: Normal Ear: Normal Nose: Normal Throat: Normal Respiratory: Diminished Throughout Cardiovascular: Tachycardia : Dysuria Auscultation: Bowel Sounds: Normal Palpation: Normal Tenderness: Normal Skin: Wound (sacral) Musculoskeletal: Instability Psychiatric: Normal Mood Description: Calm and Appropriate Affect: Normal Speech Pattern: Clear and Appropriate Assessment/Plan (1) Sepsis: Qualifiers: Acute renal failure type: unspecified Sepsis acute organ dysfunction status: with acute organ dysfunction Sepsis type: sepsis due to unspecified org anism Severe sepsis acute organ dysfunction type: acute renal failure Severe sepsis shock status: with septic shock Qualified Code(s): A41.9 - Sepsis, unspecified organism; R65.21 - Severe sepsis with septic shock; N17.9 - Acute kidney failure, unspecified Status: Acute Plan: IVF, IV antibiotics, continue dopamine gtt (2) Acute hyponatremia: Status: Acute (3) Acute UTI: Status: Acute (4) Acute hypotension: Status: Acute (5) Hyponatremia: Status: Acute (6) Acute renal failure: Status: Acute (7) Decubitus ulcer of sacral region, stage 4: Status: Acute Plan: Consult general surgery Review H&P Reviewed: Yes Patient was examined?: Yes
[2021-06-10] MEDS: ZOSYN VIAL 3.375 GRAMS 3.375 G in NS 100 ML IV 100 ML IV SCH ×2 (15:18→21:30)
[2021-06-10] MEDS: FLAGYL IV PREMIX 500 MG BAG 500 MG/100 ML BAG IV SCH ×2 (16:40→21:10)
[2021-06-10] MEDS: NS 1,000 ML IV 1,000 ML IV SCH (18:56)
[2021-06-10] MEDS ORDERED: PHARMACY CONSULT - VANCOMYCIN XX SCH (19:00)
[2021-06-10] MEDS ORDERED: VANCOMYCIN 1 GRAM PREMIX (ADDVANTAGE) 250 ML IV SCH (20:00)
[2021-06-11] MEDS: DOPAMINE IV PREMIX 400 MG/250 ML 400 MG/250 ML BAG IV PRN ×4 (01:10→19:46)
[2021-06-11 05:16] LABS: BASOPHILS # (AUTO) 0.2 X10^3/uL (0.0-0.1); BASOPHILS % (AUTO) 0.6 % (0.2-1.0); EOSINOPHILS % (AUTO) 0.1 % (0.9-2.9); HEMATOCRIT 30.2 % (36.0-47.0); HEMOGLOBIN 9.9 g/dL (12.0-16.0); LYMPHOCYTES # (AUTO) 1.8 X10^3/uL (1.3-2.9); LYMPHOCYTES % (AUTO) 6.8 % (21.0-51.0); MEAN CORPUSCULAR HEMOGLOBIN 30.4 pg (27.0-34.0); MEAN CORPUSCULAR HGB CONC 32.7 g/dL (33.0-35.0); MEAN CORPUSCULAR VOLUME 92.9 fL (80.0-100.0); MEAN PLATELET VOLUME 7.5 fL (7.4-11.0); MONOCYTES # (AUTO) 1.3 x10^3/uL (0.3-0.8); NEUTROPHILS % (AUTO) 87.5 % (42.0-75.0); RED BLOOD COUNT 3.24 X10^6/uL (3.5-5.4); RED CELL DISTRIBUTION WIDTH 15.3 % (11.6-16.5); WHITE BLOOD COUNT 26.2 X10^3/uL (3.6-10.0)
[2021-06-11 05:27] LABS: ALBUMIN 1.6 g/dL (3.4-5.0); CALCIUM 7.7 mg/dL (8.5-10.1); CARBON DIOXIDE 19.1 mmol/L (21-32); COR CA(FOR HYPOALB) 9.6 mg/dL (8.5-10.1); CREATININE 1.56 mg/dL (0.55-1.02); TOTAL PROTEIN 5.5 g/dL (6.4-8.2)
[2021-06-11 06:03] LABS: BAND NEUTROPHILS % 3 % (0-10); METAMYELOCYTES % 1; PLATELET MORPHOLOGY COMMENT NORMAL (NORMAL)
[2021-06-11] MEDS: NS 1,000 ML IV 1,000 ML IV SCH ×4 (06:10→19:45)
[2021-06-11] MEDS: FLAGYL IV PREMIX 500 MG BAG 500 MG/100 ML BAG IV SCH ×3 (06:10→22:00)
--- NOTE | 2021-06-11 06:45 | PCM.PROG ---
Progress Note Progress Note for Day of Date of Exam: 06/11/21 Subjective Subjective: Pt is a 80 year old female past medical history of Hypertension, COPD, OA, admitted for Sepsis, Decubitus sacral ulcer, UTI, Hyponatremia, and Acute renal failure. This morning patient has had some improvement in symptoms. Labs/imaging: Wbc 26.2, Hgb 9.9, Plt 466, Na 130, K 4.3, Creatinine 2.08>1.56, Glucose 137, UA: consistent with infection, Urine and Blood cultures pending. Pt is currently receiving: IVF NS@150ml/h. She is also currently requiring vasopressor support Dopamine gtt @20mcg/kg/min to keep MAP>65. MAP has improved this morning, will wean vasopressor support per protocol. Will continue antibiotics: IV Vancomycin, IV Zosyn, and IV Flagyl. Hold nephrotoxic agents at this time. Hyponatremia and renal function improving. Surgery consulted for sacral wound, pt has been NPO for possible debridement this morning. Continue to monitor closely in the ICU, and follow up labs and cultures. Time spent on clinical assessment, reviewing labs and imaging, decision making, and documentation greater than 45 minutes. Past Medical Family Social History Past Med/Fam/Surg Hx: No changes since H&P Allergies: Allergies No Known Drug Allergies Allergy (Verified 06/10/21 10:44) Review of Systems ROS: No change since H&P Vital Signs and I&O's Vital Signs: Temperature 99.5 F Pulse Rate [Left Radial] 99 Pulse Rate 99 Respiratory Rate 17 Blood Pressure [Right Arm] 104/56 Blood Pressure 100/69 O2 Sat by Pulse Oximetry 98 Intake and Output: Intake & Output 06/08/21 06/09/21 06/10/21 06/11/21 23:59 23:59 23:59 23:59 Intake Total 2019 Output Total 1050 / 1050 500 / 500 Balance 970 / 970 1480 / 1480 Physical Exam Oriented: Normal Eyes: Normal Ear: Normal Nose: Normal Throat: Normal Respiratory: Diminished Cardiovascular: Normal : Dysuria Auscultation: Bowel Sounds: Normal Tenderness: Normal Skin: Wound (sacral) Musculoskeletal: Instability Psychiatric: Normal Mood Description: Calm and Appropriate Affect: Normal Speech Pattern: Clear and Appropriate Laboratory and Diagnostics Result Diagrams: 06/11/21 04:20 06/11/21 04:20 Labs: Laboratory WBC 26.2 X10^3/uL (3.6-10.0) H 06/11/21 04:20 RBC 3.24 X10^6/uL (3.5-5.4) L 06/11/21 04:20 Hgb 9.9 g/dL (12.0-16.0) L 06/11/21 04:20 Hct 30.2 % (36.0-47.0) L 06/11/21 04:20 MCV 92.9 fL (80.0-100.0) 06/11/21 04:20 MCH 30.4 pg (27.0-34.0) 06/11/21 04:20 MCHC 32.7 g/dL (33.0-35.0) L 06/11/21 04:20 RDW 15.3 % (11.6-16.5) 06/11/21 04:20 Plt Count 466 X10^3/uL (150.0-450.0) H 06/11/21 04:20 Plt Count Comment Increased (ADEQUATE) A 06/11/21 04:20 MPV 7.5 fL (7.4-11.0) 06/11/21 04:20 Neut % (Auto) 87.5 % (42.0-75.0) H 06/11/21 04:20 Lymph % (Auto) 6.8 % (21.0-51.0) L 06/11/21 04:20 [place] % (Auto) 5.0 % (0.0-13.0) 06/11/21 04:20 Eos % (Auto) 0.1 % (0.9-2.9) L 06/11/21 04:20 Baso % (Auto) 0.6 % (0.2-1.0) 06/11/21 04:20 Neut # (Auto) 23.0 x10^3/uL (2.2-4.8) H 06/11/21 04:20 Lymph # (Auto) 1.8 X10^3/uL (1.3-2.9) 06/11/21 04:20 [place] # (Auto) 1.3 x10^3/uL (0.3-0.8) H 06/11/21 04:20 Eos # (Auto) 0.0 x10^3/uL (0.0-0.2) 06/11/21 04:20 Baso # (Auto) 0.2 X10^3/uL (0.0-0.1) H 06/11/21 04:20 Absolute Nucleated RBC 0.0 /100WBC 06/11/21 04:20 Total Counted 100 06/11/21 04:20 Neutrophils % (Manual) 84 % (39-76) H 06/11/21 04:20 Band Neutrophils % 3 % (0-10) 06/11/21 04:20 Lymphocytes % (Manual) 9 % (13-43) L 06/11/21 04:20 Monocytes % (Manual) 3 % (4-9) L 06/11/21 04:20 Metamyelocytes % 1 06/11/21 04:20 Plt Morphology Comment Normal (NORMAL) 06/11/21 04:20 RBC Morphology Normal (NORMAL) 06/11/21 04:20 Sodium 130 mmol/L (136-145) L 06/11/21 04:20 Corrected Sodium 131 mmol/L (136-145) L 06/11/21 04:20 Potassium 4.3 mmol/L (3.5-5.1) 06/11/21 04:20 Chloride 101 mmol/L (98-107) 06/11/21 04:20 Carbon Dioxide 19.1 mmol/L (21-32) L 06/11/21 04:20 BUN 44 mg/dL (7-18) H 06/11/21 04:20 Creatinine 1.56 mg/dL (0.55-1.02) H 06/11/21 04:20 Est GFR (MDRD) Af Amer 41 (>60) L 06/11/21 04:20 Est GFR (MDRD) Non-Af 34 (>60) L 06/11/21 04:20 Glucose 137 mg/dL (65-99) H 06/11/21 04:20 Lactic Acid 1.1 mmol/L (0.4-2.0) 06/10/21 11:16 Calcium 7.7 mg/dL (8.5-10.1) L 06/11/21 04:20 Corrected Calcium 9.6 mg/dL (8.5-10.1) 06/11/21 04:20 Total Bilirubin 0.30 mg/dL (0.2-1.0) 06/11/21 04:20 AST 12 Units/L (15-37) L 06/11/21 04:20 ALT 13 Units/L (12-78) 06/11/21 04:20 Alkaline Phosphatase 126 Units/L (46-116) H 06/11/21 04:20 Creatine Kinase 238 Units/L (26-192) H 06/10/21 11:16 CK-MB (CK-2) 7.3 ng/mL (0-4.0) H* 06/10/21 11:16 CK/CKMB % Calc 3.1 % (<4) 06/10/21 11:16 Troponin I High Sens 7.4 ng/L (4.0-60.0) 06/10/21 11:16 Total Protein 5.5 g/dL (6.4-8.2) L 06/11/21 04:20 Albumin 1.6 g/dL (3.4-5.0) L 06/11/21 04:20 Globulin 3.9 g/dL (2.5-4.5) 06/11/21 04:20 Albumin/Globulin Ratio 0.4 Ratio (1.1-2.1) L 06/11/21 04:20 TSH 3rd Generation 4.075 uIU/mL (0.358-3.74) H 06/10/21 11:16 Specimen Type Catherized urine 06/10/21 11:34 Urine Color Green (YELLOW) 06/10/21 11:34 Urine Appearance Turbid (CLEAR) 06/10/21 11:34 Urine pH 8.0 (5.0 - 8.0) 06/10/21 11:34 Ur Specific [place] 1.015 (1.000-1.030) 06/10/21 11:34 Urine Protein 4+ (NEGATIVE) 06/10/21 11:34 Urine Glucose (UA) Negative (NEGATIVE) 06/10/21 11:34 Urine Ketones 1+ (NEGATIVE) 06/10/21 11:34 Urine Blood 4+ (NEGATIVE) 06/10/21 11:34 Urine Nitrite Negative (NEGATIVE) 06/10/21 11:34 Urine Bilirubin Negative (NEGATIVE) 06/10/21 11:34 Urine Urobilinogen 1+ (NORMAL) 06/10/21 11:34 Ur Leukocyte Esterase 3+ (NEGATIVE) 06/10/21 11:34 Urine RBC 5-10 /HPF (0-3) A 06/10/21 11:34 Urine WBC Tntc /HPF (0-5) A 06/10/21 11:34 Ur Squamous Epith Cells Rare /HPF (NEGATIVE) 06/10/21 11:34 Urine Bacteria 1+ /HPF (NEGATIVE) 06/10/21 11:34 Ur Culture Indicated? Yes/culture set up 06/10/21 11:34 SARS CoV-2 RNA Rapid NEVAEH Negative (NEGATIVE) 06/10/21 11:19 Plan (1) Sepsis: Status: Acute Qualifiers: Acute renal failure type: unspecified Sepsis acute organ dysfunction status: with acute organ dysfunction Sepsis type: sepsis due to unspecified organism Severe sepsis acute organ dysfunction type: acute renal failure Severe sepsis shock status: with septic shock Qualified Code(s): A41.9 - Sepsis , unspecified organism; R65.21 - Severe sepsis with septic shock; N17.9 - Acute kidney failure, unspecified Plan: IVF, IV antibiotics, continue dopamine gtt (2) Acute hyponatremia: Status: Acute (3) Acute UTI: Status: Acute (4) Acute hypotension: Status: Acute (5) Hyponatremia: Status: Acute (6) Acute renal failure: Status: Acute (7) Decubitus ulcer of sacral region, stage 4: Status: Acute Plan: Consult general surgery
[2021-06-11] MEDS: VANCOMYCIN IV *PREMIX 1 G/200 ML BAG 1 G/200 ML PIGGYBACK IV SCH (08:23)
[2021-06-11] MEDS: ZOSYN VIAL 3.375 GRAMS 3.375 G in NS 100 ML IV 100 ML IV SCH ×2 (10:29→21:00)
[2021-06-11] MEDS ORDERED: NS 1,000 ML IV 1,000 ML ONE (14:16)
[2021-06-11] MEDS ORDERED: ZOFRAN INJ 4 MG VIAL ONE (14:24)
[2021-06-11] MEDS ORDERED: ZEMURON 100 MG VIAL ONE (14:24)
[2021-06-11] MEDS ORDERED: AMIDATE INJ 40 MG VIAL ONE (14:24)
[2021-06-11] MEDS ORDERED: XYLOCAINE 2 % (PLAIN) ONE (14:24)
[2021-06-11] MEDS ORDERED: PEPCID 20 MG VIAL ONE (14:24)
[2021-06-11] MEDS ORDERED: ADRENALINE CHL INJ ONE (14:25)
[2021-06-11] MEDS ORDERED: POLYMYXIN B SULFATE ONE (14:31)
[2021-06-11] MEDS ORDERED: BETADINE SOLN ONE ×2 (14:32→15:12)
[2021-06-11] MEDS ORDERED: XYLOCAINE 1 % (PLAIN) ONE ×2 (14:32→16:13)
[2021-06-11] MEDS ORDERED: VERSED ONE (14:38)
[2021-06-11] MEDS ORDERED: KETAMINE 50 MG/5 ML-NACL SYRNG ONE (14:38)
[2021-06-11] MEDS ORDERED: FENTANYL VIAL INJ 100 mcg ONE (14:39)
[2021-06-11] MEDS ORDERED: ULTANE GAS IN ONE (14:50)
[2021-06-11] MEDS ORDERED: NEO-SYNEPHRINE INJ ONE (14:59)
[2021-06-11] MEDS ORDERED: VASOSTRICT INJ 20 UNITS VIAL ONE ×2 (15:33→17:17)
[2021-06-11] MEDS ORDERED: BRIDION ONE (15:35)
[2021-06-11] MEDS ORDERED: ROBINUL ONE (15:39)
[2021-06-11] MEDS ORDERED: DILAUDID INJ IVP PRN (16:53)
[2021-06-11] MEDS ORDERED: ZOFRAN INJ 4 MG VIAL IVP PRN (16:53)
[2021-06-11] MEDS ORDERED: BENADRYL INJ 50 MG VIAL IVP PRN (16:53)
[2021-06-11 16:59] LABS: BASOPHILS # (AUTO) 0.1 X10^3/uL (0.0-0.1); EOSINOPHILS % (AUTO) 0.1 % (0.9-2.9); HEMOGLOBIN 8.1 g/dL (12.0-16.0); MEAN CORPUSCULAR HGB CONC 32.4 g/dL (33.0-35.0); MONOCYTES # (AUTO) 1.3 x10^3/uL (0.3-0.8); RED BLOOD COUNT 2.66 X10^6/uL (3.5-5.4)
[2021-06-11 17:02] LABS: BASOPHILS % (AUTO) 0.3 % (0.2-1.0); HEMATOCRIT 25.1 % (36.0-47.0); LYMPHOCYTES # (AUTO) 1.3 X10^3/uL (1.3-2.9); LYMPHOCYTES % (AUTO) 3.5 % (21.0-51.0); MEAN CORPUSCULAR HEMOGLOBIN 30.5 pg (27.0-34.0); MEAN CORPUSCULAR VOLUME 94.1 fL (80.0-100.0); MEAN PLATELET VOLUME 6.9 fL (7.4-11.0); MONOCYTES % (AUTO) 3.8 % (0.0-13.0); NEUTROPHILS # (AUTO) 32.8 x10^3/uL (2.2-4.8); NEUTROPHILS % (AUTO) 92.3 % (42.0-75.0); RED CELL DISTRIBUTION WIDTH 15.4 % (11.6-16.5)
[2021-06-11 17:14] LABS: WHITE BLOOD COUNT 35.5 X10^3/uL (3.6-10.0)
[2021-06-11 17:22] LABS: PLATELET MORPHOLOGY COMMENT NORMAL (NORMAL)
[2021-06-12] MEDS: DOPAMINE IV PREMIX 400 MG/250 ML 400 MG/250 ML BAG IV PRN ×4 (01:30→20:30)
[2021-06-12] MEDS: NS 1,000 ML IV 1,000 ML IV SCH ×4 (03:30→18:16)
[2021-06-12 05:16] LABS: BASOPHILS # (AUTO) 0.1 X10^3/uL (0.0-0.1); BASOPHILS % (AUTO) 0.4 % (0.2-1.0); HEMOGLOBIN 7.5 g/dL (12.0-16.0); LYMPHOCYTES # (AUTO) 1.6 X10^3/uL (1.3-2.9); LYMPHOCYTES % (AUTO) 7.1 % (21.0-51.0); MEAN CORPUSCULAR HEMOGLOBIN 30.9 pg (27.0-34.0); MEAN CORPUSCULAR HGB CONC 32.6 g/dL (33.0-35.0); MEAN CORPUSCULAR VOLUME 94.7 fL (80.0-100.0); MEAN PLATELET VOLUME 7.1 fL (7.4-11.0); MONOCYTES % (AUTO) 4.7 % (0.0-13.0); NEUTROPHILS # (AUTO) 19.4 x10^3/uL (2.2-4.8); NEUTROPHILS % (AUTO) 87.8 % (42.0-75.0); RED BLOOD COUNT 2.43 X10^6/uL (3.5-5.4); RED CELL DISTRIBUTION WIDTH 15.5 % (11.6-16.5)
[2021-06-12 05:25] LABS: ALBUMIN 1.3 g/dL (3.4-5.0); CALCIUM 7.3 mg/dL (8.5-10.1); CARBON DIOXIDE 18.4 mmol/L (21-32); COR CA(FOR HYPOALB) 9.5 mg/dL (8.5-10.1); CREATININE 1.32 mg/dL (0.55-1.02); TOTAL PROTEIN 4.6 g/dL (6.4-8.2)
[2021-06-12 05:52] LABS: WHITE BLOOD COUNT 22.1 X10^3/uL (3.6-10.0)
[2021-06-12 05:53] LABS: PLATELET MORPHOLOGY COMMENT NORMAL (NORMAL)
[2021-06-12] MEDS: FLAGYL IV PREMIX 500 MG BAG 500 MG/100 ML BAG IV SCH ×3 (06:00→22:05)
[2021-06-12] MEDS ORDERED: ESOMEPRAZOLE MAGNESIUM 20 MG PO SCH (08:15)
[2021-06-12 08:20] VITALS: BMI 25.9
--- NOTE | 2021-06-12 08:40 | DR.PROGNOT ---
Hospital Progress Notes - Progress Note for Day of: Progress Note Date: 06/12/21 - Chief Complaint Chief Complaint: alert and oriented . PO debridement of largd infevted sacral ulcer.. - Past Medical Family Social History Past Med/Fam/Surg Hx: No changes since H&P Allergies: Allergies No Known Drug Allergies Allergy (Verified 06/10/21 10:44) - Review Of Systems ROS: No change since H&P - Vital Signs Vital Signs: Temperature 97.8 F Pulse Rate [Left Radial] 99 Pulse Rate 63 Respiratory Rate 9 Blood Pressure [Right Arm] 104/56 Blood Pressure 107/56 O2 Sat by Pulse Oximetry 100 - Physical Exam Oriented: Normal Eyes: Normal Ear: Normal Nose: Normal Throat: Normal Respiratory: Diminished Cardiovascular: Normal : Dysuria GI:Auscultation: Normal GI:Palpation: Normal GI: Tenderness: Normal Skin: Wound (large stage 4 sacral 14x8 cm deep with exposed bone .) Musculoskeletal: Instability Psychiatric: Normal Mood Description: Calm, Appropriate Affect: Normal Speech Pattern: Clear, Appropriate - Laboratory and Diagnostics Result Diagrams: 06/12/21 04:26 06/12/21 04:26 Labs: 06/11/21 15:20 Sacral Wound Gram Stain - Final 06/10/21 11:16 Blood Blood Culture - Preliminary 06/10/21 11:34 Urine,Catheterized Urine Culture - Preliminary Laboratory WBC 22.1 X10^3/uL (3.6-10.0) H D 06/12/21 04:26 RBC 2.43 X10^6/uL (3.5-5.4) L 06/12/21 04:26 Hgb 7.5 g/dL (12.0-16.0) L 06/12/21 04:26 Hct 23.0 % (36.0-47.0) L 06/12/21 04:26 MCV 94.7 fL (80.0-100.0) 06/12/21 04:26 MCH 30.9 pg (27.0-34.0) 06/12/21 04:26 MCHC 32.6 g/dL (33.0-35.0) L 06/12/21 04:26 RDW 15.5 % (11.6-16.5) 06/12/21 04:26 Plt Count 296 X10^3/uL (150.0-450.0) 06/12/21 04:26 Plt Count Comment Adequate (ADEQUATE) 06/12/21 04:26 MPV 7.1 fL (7.4-11.0) L 06/12/21 04:26 Neut % (Auto) 87.8 % (42.0-75.0) H 06/12/21 04:26 Lymph % (Auto) 7.1 % (21.0-51.0) L 06/12/21 04:26 [place] % (Auto) 4.7 % (0.0-13.0) 06/12/21 04:26 Eos % (Auto) 0.0 % (0.9-2.9) L 06/12/21 04:26 Baso % (Auto) 0.4 % (0.2-1.0) 06/12/21 04:26 Neut # (Auto) 19.4 x10^3/uL (2.2-4.8) H 06/12/21 04:26 Lymph # (Auto) 1.6 X10^3/uL (1.3-2.9) 06/12/21 04:26 [place] # (Auto) 1.0 x10^3/uL (0.3-0.8) H 06/12/21 04:26 Eos # (Auto) 0.0 x10^3/uL (0.0-0.2) 06/12/21 04:26 Baso # (Auto) 0.1 X10^3/uL (0.0-0.1) 06/12/21 04:26 Absolute Nucleated RBC 0.0 /100WBC 06/12/21 04:26 Total Counted 100 06/12/21 04:26 Neutrophils % (Manual) 92 % (39-76) H 06/12/21 04:26 Band Neutrophils % 3 % (0-10) 06/11/21 04:20 Lymphocytes % (Manual) 6 % (13-43) L 06/12/21 04:26 Monocytes % (Manual) 2 % (4-9) L 06/12/21 04:26 Eosinophils % (Manual) 1 % (0-6) 06/11/21 16:51 Metamyelocytes % 1 06/11/21 04:20 Plt Morphology Comment Normal (NORMAL) 06/12/21 04:26 RBC Morphology Normal (NORMAL) 06/12/21 04:26 Sodium 132 mmol/L (136-145) L 06/12/21 04:26 Corrected Sodium 132 mmol/L (136-145) L 06/12/21 04:26 Potassium 4.3 mmol/L (3.5-5.1) 06/12/21 04:26 Chloride 105 mmol/L (98-107) 06/12/21 04:26 Carbon Dioxide 18.4 mmol/L (21-32) L 06/12/21 04:26 BUN 28 mg/dL (7-18) H 06/12/21 04:26 Creatinine 1.32 mg/dL (0.55-1.02) H 06/12/21 04:26 Est GFR (MDRD) Af Amer 50 (>60) L 06/12/21 04:26 Est GFR (MDRD) Non-Af 41 (>60) L 06/12/21 04:26 Glucose 119 mg/dL (65-99) H 06/12/21 04:26 Lactic Acid 1.1 mmol/L (0.4-2.0) 06/10/21 11:16 Calcium 7.3 mg/dL (8.5-10.1) L 06/12/21 04:26 Corrected Calcium 9.5 mg/dL (8.5-10.1) 06/12/21 04:26 Total Bilirubin 0.30 mg/dL (0.2-1.0) 06/12/21 04:26 AST 8 Units/L (15-37) L 06/12/21 04:26 ALT 9 Units/L (12-78) L 06/12/21 04:26 Alkaline Phosphatase 95 Units/L (46-116) 06/12/21 04:26 Creatine Kinase 238 Units/L (26-192) H 06/10/21 11:16 CK-MB (CK-2) 7.3 ng/mL (0-4.0) H* 06/10/21 11:16 CK/CKMB % Calc 3.1 % (<4) 06/10/21 11:16 Troponin I High Sens 7.4 ng/L (4.0-60.0) 06/10/21 11:16 Total Protein 4.6 g/dL (6.4-8.2) L 06/12/21 04:26 Albumin 1.3 g/dL (3.4-5.0) L 06/12/21 04:26 Globulin 3.3 g/dL (2.5-4.5) 06/12/21 04:26 Albumin/Globulin Ratio 0.4 Ratio (1.1-2.1) L 06/12/21 04:26 TSH 3rd Generation 4.075 uIU/mL (0.358-3.74) H 06/10/21 11:16 Specimen Type Catherized urine 06/10/21 11:34 Urine Color Green (YELLOW) 06/10/21 11:34 Urine Appearance Turbid (CLEAR) 06/10/21 11:34 Urine pH 8.0 (5.0 - 8.0) 06/10/21 11:34 Ur Specific [place] 1.015 (1.000-1.030) 06/10/21 11:34 Urine Protein 4+ (NEGATIVE) 06/10/21 11:34 Urine Glucose (UA) Negative (NEGATIVE) 06/10/21 11:34 Urine Ketones 1+ (NEGATIVE) 06/10/21 11:34 Urine Blood 4+ (NEGATIVE) 06/10/21 11:34 Urine Nitrite Negative (NEGATIVE) 06/10/21 11:34 Urine Bilirubin Negative (NEGATIVE) 06/10/21 11:34 Urine Urobilinogen 1+ (NORMAL) 06/10/21 11:34 Ur Leukocyte Esterase 3+ (NEGATIVE) 06/10/21 11:34 Urine RBC 5-10 /HPF (0-3) A 06/10/21 11:34 Urine WBC Tntc /HPF (0-5) A 06/10/21 11:34 Ur Squamous Epith Cells Rare /HPF (NEGATIVE) 06/10/21 11:34 Urine Bacteria 1+ /HPF (NEGATIVE) 06/10/21 11:34 Ur Culture Indicated? 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 same local care with packing .. nutritional support and IV ABT . daily dressing changes .. - Problem Patient Problems: Patient Problems Sepsis (Acute) A41.9 Acute hyponatremia (Acute) E87.1 Azotemia (Acute) R79.89 Acute UTI (Acute) N39.0 Decubitus ulcer of sacral region, stage 4 (Acute) L89.154
[2021-06-12] MEDS ORDERED: LEXAPRO ONE (10:01)
[2021-06-12] MEDS: VANCOMYCIN IV *PREMIX 1 G/200 ML BAG 1 G/200 ML PIGGYBACK IV SCH (10:02)
[2021-06-12] MEDS: COLACE CAP 100 MG PO SCH ×2 (10:03→20:15)
[2021-06-12] MEDS: HEMOCYTE-PLUS PO SCH ×2 (10:03→20:15)
[2021-06-12] MEDS: SYNTHROID 50 mcg TAB PO SCH (10:03)
[2021-06-12] MEDS: NAMENDA TAB 10 MG PO SCH ×2 (10:04→20:15)
[2021-06-12] MEDS: LEXAPRO PO SCH (10:04)
--- NOTE | 2021-06-12 11:07 | PCM.PROG ---
Progress Note Progress Note for Day of Date of Exam: 06/12/21 Subjective Subjective: Pt is a 80 year old female past medical history of Hypertension, COPD, OA, admitted for Sepsis, Decubitus sacral ulcer, UTI, Hyponatremia, and Acute renal failure. Pt is sitting upright in bed this morning eating breakfast. She did have debridement of stage 4 sacral ulcer yesterday and now has it packed. Will need daily dressing changes. Labs/imaging: Wbc 22, Hgb 7.5, Plt 296, Na 132, K 4.3, Creatinine 1.32, Glucose 119, Urine culture prelim gram negative rods, Blood and wound cultures pending. Pt is currently receiving: IVF NS@150ml/h. She is also currently requiring vasopressor support Dopamine gtt @15mcg/kg/min to keep MAP>65. Wean vasopressor support per protocol and as tolerated. Will continue antibiotics: IV Vancomycin, IV Zosyn, and IV Flagyl. Hold nephrotoxic agents at this time. Hyponatremia and renal function improving. Restart home medications. Continue to monitor closely and follow up labs in the morning. Time spent on clinical assessment, reviewing labs and imaging, decision making, and documentation greater than 45 minutes. Past Medical Family Social History Past Med/Fam/Surg Hx: No changes since H&P Allergies: Allergies No Known Drug Allergies Allergy (Verified 06/10/21 10:44) Review of Systems ROS: No change since H&P Vital Signs and I&O's Vital Signs: Temperature 97.8 F Pulse Rate [Left Radial] 99 Pulse Rate 63 Respiratory Rate 9 Blood Pressure [Right Arm] 104/56 Blood Pressure 107/56 O2 Sat by Pulse Oximetry 100 Intake and Output: Intake & Output 06/09/21 06/10/21 06/11/21 06/12/21 23:59 23:59 23:59 23:59 Intake Total 2019 5800 / 5850 1521 / 1521 Output Total 1050 / 1050 1475 / 1475 400 / 400 Balance 970 / 970 4325 / 4375 1121 / 1121 Physical Exam Oriented: Normal Eyes: Normal Ear: Normal Nose: Normal Throat: Normal Respiratory: Diminished Cardiovascular: Normal : Dysuria Auscultation: Bowel Sounds: Normal Tenderness: Normal Skin: Wound (large stage 4 sacral 14x8 cm deep with exposed bone .) Musculoskeletal: Instability Psychiatric: Normal Mood Description: Calm and Appropriate Affect: Normal Speech Pattern: Clear and Appropriate Laboratory and Diagnostics Result Diagrams: 06/12/21 04:26 06/12/21 04:26 Labs: 06/11/21 15:20 Sacral Wound Gram Stain - Final 06/11/21 15:20 Sacral Wound Culture - Preliminary 06/10/21 11:16 Blood Blood Culture - Preliminary 06/10/21 11:34 Urine,Catheterized Urine Culture - Final Klebsiella Pneumoniae 06/10/21 11:20 Blood Blood Culture - Preliminary Laboratory WBC 22.1 X10^3/uL (3.6-10.0) H D 06/12/21 04:26 RBC 2.43 X10^6/uL (3.5-5.4) L 06/12/21 04:26 Hgb 7.5 g/dL (12.0-16.0) L 06/12/21 04:26 Hct 23.0 % (36.0-47.0) L 06/12/21 04:26 MCV 94.7 fL (80.0-100.0) 06/12/21 04:26 MCH 30.9 pg (27.0-34.0) 06/12/21 04:26 MCHC 32.6 g/dL (33.0-35.0) L 06/12/21 04:26 RDW 15.5 % (11.6-16.5) 06/12/21 04:26 Plt Count 296 X10^3/uL (150.0-450.0) 06/12/21 04:26 Plt Count Comment Adequate (ADEQUATE) 06/12/21 04:26 MPV 7.1 fL (7.4-11.0) L 06/12/21 04:26 Neut % (Auto) 87.8 % (42.0-75.0) H 06/12/21 04:26 Lymph % (Auto) 7.1 % (21.0-51.0) L 06/12/21 04:26 [place] % (Auto) 4.7 % (0.0-13.0) 06/12/21 04:26 Eos % (Auto) 0.0 % (0.9-2.9) L 06/12/21 04:26 Baso % (Auto) 0.4 % (0.2-1.0) 06/12/21 04:26 Neut # (Auto) 19.4 x10^3/uL (2.2-4.8) H 06/12/21 04:26 Lymph # (Auto) 1.6 X10^3/uL (1.3-2.9) 06/12/21 04:26 [place] # (Auto) 1.0 x10^3/uL (0.3-0.8) H 06/12/21 04:26 Eos # (Auto) 0.0 x10^3/uL (0.0-0.2) 06/12/21 04:26 Baso # (Auto) 0.1 X10^3/uL (0.0-0.1) 06/12/21 04:26 Absolute Nucleated RBC 0.0 /100WBC 06/12/21 04:26 Total Counted 100 06/12/21 04:26 Neutrophils % (Manual) 92 % (39-76) H 06/12/21 04:26 Band Neutrophils % 3 % (0-10) 06/11/21 04:20 Lymphocytes % (Manual) 6 % (13-43) L 06/12/21 04:26 Monocytes % (Manual) 2 % (4-9) L 06/12/21 04:26 Eosinophils % (Manual) 1 % (0-6) 06/11/21 16:51 Metamyelocytes % 1 06/11/21 04:20 Plt Morphology Comment Normal (NORMAL) 06/12/21 04:26 RBC Morphology Normal (NORMAL) 06/12/21 04:26 Sodium 132 mmol/L (136-145) L 06/12/21 04:26 Corrected Sodium 132 mmol/L (136-145) L 06/12/21 04:26 Potassium 4.3 mmol/L (3.5-5.1) 06/12/21 04:26 Chloride 105 mmol/L (98-107) 06/12/21 04:26 Carbon Dioxide 18.4 mmol/L (21-32) L 06/12/21 04:26 BUN 28 mg/dL (7-18) H 06/12/21 04:26 Creatinine 1.32 mg/dL (0.55-1.02) H 06/12/21 04:26 Est GFR (MDRD) Af Amer 50 (>60) L 06/12/21 04:26 Est GFR (MDRD) Non-Af 41 (>60) L 06/12/21 04:26 Glucose 119 mg/dL (65-99) H 06/12/21 04:26 Lactic Acid 1.1 mmol/L (0.4-2.0) 06/10/21 11:16 Calcium 7.3 mg/dL (8.5-10.1) L 06/12/21 04:26 Corrected Calcium 9.5 mg/dL (8.5-10.1) 06/12/21 04:26 Total Bilirubin 0.30 mg/dL (0.2-1.0) 06/12/21 04:26 AST 8 Units/L (15-37) L 06/12/21 04:26 ALT 9 Units/L (12-78) L 06/12/21 04:26 Alkaline Phosphatase 95 Units/L (46-116) 06/12/21 04:26 Creatine Kinase 238 Units/L (26-192) H 06/10/21 11:16 CK-MB (CK-2) 7.3 ng/mL (0-4.0) H* 06/10/21 11:16 CK/CKMB % Calc 3.1 % (<4) 06/10/21 11:16 Troponin I High Sens 7.4 ng/L (4.0-60.0) 06/10/21 11:16 Total Protein 4.6 g/dL (6.4-8.2) L 06/12/21 04:26 Albumin 1.3 g/dL (3.4-5.0) L 06/12/21 04:26 Globulin 3.3 g/dL (2.5-4.5) 06/12/21 04:26 Albumin/Globulin Ratio 0.4 Ratio (1.1-2.1) L 06/12/21 04:26 TSH 3rd Generation 4.075 uIU/mL (0.358-3.74) H 06/10/21 11:16 Specimen Type Catherized urine 06/10/21 11:34 Urine Color Green (YELLOW) 06/10/21 11:34 Urine Appearance Turbid (CLEAR) 06/10/21 11:34 Urine pH 8.0 (5.0 - 8.0) 06/10/21 11:34 Ur Specific [place] 1.015 (1.000-1.030) 06/10/21 11:34 Urine Protein 4+ (NEGATIVE) 06/10/21 11:34 Urine Glucose (UA) Negative (NEGATIVE) 06/10/21 11:34 Urine Ketones 1+ (NEGATIVE) 06/10/21 11:34 Urine Blood 4+ (NEGATIVE) 06/10/21 11:34 Urine Nitrite Negative (NEGATIVE) 06/10/21 11:34 Urine Bilirubin Negative (NEGATIVE) 06/10/21 11:34 Urine Urobilinogen 1+ (NORMAL) 06/10/21 11:34 Ur Leukocyte Esterase 3+ (NEGATIVE) 06/10/21 11:34 Urine RBC 5-10 /HPF (0-3) A 06/10/21 11:34 Urine WBC Tntc /HPF (0-5) A 06/10/21 11:34 Ur Squamous Epith Cells Rare /HPF (NEGATIVE) 06/10/21 11:34 Urine Bacteria 1+ /HPF (NEGATIVE) 06/10/21 11:34 Ur Culture Indicated? Yes/culture set up 06/10/21 11:34 SARS CoV-2 RNA Rapid NEVAEH Negative (NEGATIVE) 06/10/21 11:19 Tissue Pathology To follow 06/11/21 15:20 Plan (1) Sepsis: Status: Acute Qualifiers: Acute renal failure type: unspecified Sepsis acute organ dysfunction status: with acute organ dysfunction Sepsis type: sepsis due to unspecified organism Severe sepsis acute organ dysfunction type: acute renal failure Severe sepsis shock status: with septic shock Qualified Code(s): A41.9 - Sepsis, unspecified organism; R65.21 - Severe sepsis with septic shock; N17.9 - Acute kidney failure, unspecified Plan: IVF, IV antibiotics, continue dopamine gtt (2) Acute hyponatremia: Status: Acute (3) Acute UTI: Status: Acute (4) Acute hypotension: Status: Acute (5) Hyponatremia: Status: Acute (6) Acute renal failure: Status: Acute (7) Decubitus ulcer of sacral region, stage 4: Status: Acute Plan: Consult general surgery
[2021-06-12] MEDS: ZOSYN VIAL 3.375 GRAMS 3.375 G in NS 100 ML IV 100 ML IV SCH ×2 (11:17→20:15)
[2021-06-12] MEDS: SINEMET (PLAIN) 10/100 MG PO SCH ×2 (15:00→22:05)
[2021-06-12] MEDS: TYLENOL 325 MG TAB PO PRN (15:45)
[2021-06-13] MEDS: NS 1,000 ML IV 1,000 ML IV SCH ×3 (02:07→18:24)
[2021-06-13] MEDS: DOPAMINE IV PREMIX 400 MG/250 ML 400 MG/250 ML BAG IV PRN ×3 (04:03→18:05)
[2021-06-13 05:39] LABS: EOSINOPHILS % (AUTO) 0.2 % (0.9-2.9); LYMPHOCYTES # (AUTO) 1.3 X10^3/uL (1.3-2.9); NEUTROPHILS # (AUTO) 14.1 x10^3/uL (2.2-4.8); WHITE BLOOD COUNT 16.6 X10^3/uL (3.6-10.0)
[2021-06-13 05:46] LABS: ALBUMIN 1.3 g/dL (3.4-5.0); ALKALINE PHOSPHATASE 80 Units/L (46-116); ASPARTATE AMINO TRANSFERASE 6 Units/L (15-37); BLOOD UREA NITROGEN 20 mg/dL (7-18); CARBON DIOXIDE 17.4 mmol/L (21-32); CHLORIDE 105 mmol/L (98-107); COR CA(FOR HYPOALB) 9.2 mg/dL (8.5-10.1); CREATININE 1.24 mg/dL (0.55-1.02); SODIUM 134 mmol/L (136-145); TOTAL PROTEIN 4.3 g/dL (6.4-8.2); eGFR NON BLACK RACES 44 (>60)
[2021-06-13 05:47] LABS: BASOPHILS # (AUTO) 0.1 X10^3/uL (0.0-0.1); BASOPHILS % (AUTO) 0.5 % (0.2-1.0); HEMATOCRIT 20.9 % (36.0-47.0); MEAN CORPUSCULAR HEMOGLOBIN 30.9 pg (27.0-34.0); MEAN CORPUSCULAR VOLUME 93.7 fL (80.0-100.0); MEAN PLATELET VOLUME 7.4 fL (7.4-11.0); MONOCYTES % (AUTO) 6.1 % (0.0-13.0); NEUTROPHILS % (AUTO) 85.2 % (42.0-75.0); RED BLOOD COUNT 2.23 X10^6/uL (3.5-5.4)
[2021-06-13 05:58] LABS: HEMOGLOBIN 6.9 g/dL (12.0-16.0)
[2021-06-13] MEDS: SINEMET (PLAIN) 10/100 MG PO SCH ×3 (06:00→21:00)
[2021-06-13] MEDS: FLAGYL IV PREMIX 500 MG BAG 500 MG/100 ML BAG IV SCH ×3 (06:00→20:59)
[2021-06-13 06:04] LABS: ALANINE AMINOTRANSFERASE 7 Units/L (12-78)
[2021-06-13 07:01] LABS: HEMATOCRIT 22.4 % (36.0-47.0); HEMOGLOBIN 7.2 g/dL (12.0-16.0)
[2021-06-13] MEDS ORDERED: PHARMACY COMMENT IV ONE (08:00)
[2021-06-13] MEDS ORDERED: PATIENT'S HOME MEDICATION PO ONE (08:00)
[2021-06-13] MEDS ORDERED: LEXAPRO ONE (08:20)
[2021-06-13] MEDS: ZOSYN VIAL 3.375 GRAMS 3.375 G in NS 100 ML IV 100 ML IV SCH ×2 (08:50→20:18)
[2021-06-13 09:01] LABS: CREATININE 1.23 mg/dL (0.55-1.02); VANCOMYCIN,TROUGH 12.2 ug/mL (15-20)
[2021-06-13] MEDS: NAMENDA TAB 10 MG PO SCH ×2 (09:17→20:18)
[2021-06-13] MEDS: LEXAPRO PO SCH (09:18)
[2021-06-13] MEDS: SYNTHROID 50 mcg TAB PO SCH (09:18)
[2021-06-13] MEDS: COLACE CAP 100 MG PO SCH ×2 (09:19→20:17)
[2021-06-13] MEDS: HEMOCYTE-PLUS PO SCH ×2 (09:19→20:17)
[2021-06-13] MEDS: ZOFRAN INJ 4 MG VIAL IVP PRN ×2 (10:20→17:13)
[2021-06-13] MEDS: VANCOMYCIN IV *PREMIX 1 G/200 ML BAG 1 G/200 ML PIGGYBACK IV SCH (11:12)
[2021-06-13] MEDS ORDERED: NS 250 ML IV 250 ML IV ONE (11:43)
[2021-06-13] MEDS: SOLU-Cortef INJ IVP SCH ×3 (13:32→20:18)
[2021-06-13] MEDS: MAGNESIUM SULFATE 1 GRAM/100 mL PREMIX 1 G/100 ML BAG IV PRN ×2 (16:52→18:04)
[2021-06-13] MEDS: THIAMINE HCL INJ IVP SCH (20:18)
[2021-06-13] MEDS: TYLENOL 325 MG TAB PO PRN (21:37)
[2021-06-13] MEDS: MAALOX or MYLANTA PO PRN (23:15)
[2021-06-14] MEDS: DOPAMINE IV PREMIX 400 MG/250 ML 400 MG/250 ML BAG IV PRN ×3 (01:07→17:34)
[2021-06-14] MEDS: NS 1,000 ML IV 1,000 ML IV SCH ×3 (02:46→18:08)
[2021-06-14] MEDS: ZOFRAN INJ 4 MG VIAL IVP PRN ×2 (03:25→12:45)
[2021-06-14] MEDS: FLAGYL IV PREMIX 500 MG BAG 500 MG/100 ML BAG IV SCH ×3 (05:09→20:59)
[2021-06-14] MEDS: SINEMET (PLAIN) 10/100 MG PO SCH ×3 (05:09→20:59)
[2021-06-14 06:55] LABS: BASOPHILS # (AUTO) 0.1 X10^3/uL (0.0-0.1); BASOPHILS % (AUTO) 0.4 % (0.2-1.0); HEMATOCRIT 33.1 % (36.0-47.0); HEMOGLOBIN 11.1 g/dL (12.0-16.0); MEAN CORPUSCULAR HEMOGLOBIN 29.5 pg (27.0-34.0); MEAN CORPUSCULAR HGB CONC 33.5 g/dL (33.0-35.0); MEAN CORPUSCULAR VOLUME 88.2 fL (80.0-100.0); MEAN PLATELET VOLUME 6.6 fL (7.4-11.0); MONOCYTES # (AUTO) 0.7 x10^3/uL (0.3-0.8); MONOCYTES % (AUTO) 3.5 % (0.0-13.0); NEUTROPHILS # (AUTO) 17.5 x10^3/uL (2.2-4.8); NEUTROPHILS % (AUTO) 91.1 % (42.0-75.0); RED BLOOD COUNT 3.75 X10^6/uL (3.5-5.4); RED CELL DISTRIBUTION WIDTH 18.8 % (11.6-16.5); WHITE BLOOD COUNT 19.2 X10^3/uL (3.6-10.0)
[2021-06-14 07:06] LABS: ALANINE AMINOTRANSFERASE < 6 Units/L (12-78); ALBUMIN 1.6 g/dL (3.4-5.0); ALKALINE PHOSPHATASE 88 Units/L (46-116); ASPARTATE AMINO TRANSFERASE 12 Units/L (15-37); BLOOD UREA NITROGEN 18 mg/dL (7-18); CALCIUM 7.6 mg/dL (8.5-10.1); CARBON DIOXIDE 17.2 mmol/L (21-32); CHLORIDE 104 mmol/L (98-107); COR CA(FOR HYPOALB) 9.5 mg/dL (8.5-10.1); COR NA(FOR HYPERGLY) 134 mmol/L (136-145); MAGNESIUM 2.1 mg/dL (1.7-2.9); SODIUM 133 mmol/L (136-145); TOTAL PROTEIN 4.8 g/dL (6.4-8.2); eGFR NON BLACK RACES 42 (>60)
[2021-06-14] MEDS ORDERED: MAGNESIUM SULFATE 1 GRAM/100 mL PREMIX 1 G/100 ML BAG IV PRN (07:24)
[2021-06-14] MEDS ORDERED: POTASSIUM CHL 40 MEQ/NS 0.45% 500 ML IV PRN (07:24)
[2021-06-14] MEDS ORDERED: POTASSIUM CHLORIDE LIQ 20 MEQ UDC PO PRN (07:24)
[2021-06-14] MEDS ORDERED: POTASSIUM CHL 60 MEQ/NS 0.45% 500 ML IV PRN (07:24)
[2021-06-14] MEDS ORDERED: MICRO K EXTEN CAP 10 MEQ PO PRN (07:24)
[2021-06-14] MEDS ORDERED: KLOR-CON PO PRN (07:24)
[2021-06-14 07:30] LABS: BAND NEUTROPHILS % 2 % (0-10)
[2021-06-14 07:31] LABS: ANISOCYTOSIS SLIGHT; PLATELET MORPHOLOGY COMMENT NORMAL (NORMAL)
[2021-06-14] MEDS ORDERED: LEXAPRO ONE (08:41)
[2021-06-14] MEDS: HEMOCYTE-PLUS PO SCH ×2 (08:47→20:45)
[2021-06-14] MEDS: COLACE CAP 100 MG PO SCH ×2 (08:47→20:45)
[2021-06-14] MEDS: LEXAPRO PO SCH (08:47)
[2021-06-14] MEDS: NAMENDA TAB 10 MG PO SCH ×2 (08:48→20:45)
[2021-06-14] MEDS: SYNTHROID 50 mcg TAB PO SCH (08:48)
[2021-06-14] MEDS: SOLU-Cortef INJ IVP SCH ×4 (08:54→20:45)
[2021-06-14] MEDS: THIAMINE HCL INJ IVP SCH ×2 (08:55→20:46)
[2021-06-14] MEDS: ZOSYN VIAL 3.375 GRAMS 3.375 G in NS 100 ML IV 100 ML IV SCH ×2 (08:56→20:46)
[2021-06-14] MEDS: VANCOMYCIN IV *PREMIX 1 G/200 ML BAG 1 G/200 ML PIGGYBACK IV SCH (08:56)
[2021-06-14] MEDS: K-RIDER 10 MEQ/NS 100 ML 10 MEQ/100 ML BAG IV PRN ×6 (08:56→14:33)
[2021-06-14] MEDS: MAALOX or MYLANTA PO PRN (13:31)
[2021-06-14] MEDS: TYLENOL 325 MG TAB PO PRN (20:46)
[2021-06-15] MEDS: NS 1,000 ML IV 1,000 ML IV SCH ×3 (02:25→17:36)
[2021-06-15] MEDS: DOPAMINE IV PREMIX 400 MG/250 ML 400 MG/250 ML BAG IV PRN ×2 (04:00→15:00)
[2021-06-15] MEDS: FLAGYL IV PREMIX 500 MG BAG 500 MG/100 ML BAG IV SCH ×3 (05:10→21:20)
[2021-06-15] MEDS: SINEMET (PLAIN) 10/100 MG PO SCH ×3 (05:10→21:20)
[2021-06-15 06:15] LABS: BASOPHILS # (AUTO) 0.1 X10^3/uL (0.0-0.1); BASOPHILS % (AUTO) 0.5 % (0.2-1.0); HEMATOCRIT 32.2 % (36.0-47.0); HEMOGLOBIN 10.8 g/dL (12.0-16.0); LYMPHOCYTES # (AUTO) 1.1 X10^3/uL (1.3-2.9); MEAN CORPUSCULAR HEMOGLOBIN 29.5 pg (27.0-34.0); MEAN CORPUSCULAR HGB CONC 33.5 g/dL (33.0-35.0); MEAN CORPUSCULAR VOLUME 88.1 fL (80.0-100.0); MEAN PLATELET VOLUME 6.7 fL (7.4-11.0); MONOCYTES # (AUTO) 0.8 x10^3/uL (0.3-0.8); MONOCYTES % (AUTO) 4.2 % (0.0-13.0); NEUTROPHILS # (AUTO) 16.3 x10^3/uL (2.2-4.8); NEUTROPHILS % (AUTO) 89.3 % (42.0-75.0); RED BLOOD COUNT 3.65 X10^6/uL (3.5-5.4); RED CELL DISTRIBUTION WIDTH 19.3 % (11.6-16.5); WHITE BLOOD COUNT 18.3 X10^3/uL (3.6-10.0)
[2021-06-15 06:33] LABS: ALANINE AMINOTRANSFERASE < 6 Units/L (12-78); ALBUMIN 1.5 g/dL (3.4-5.0); ALKALINE PHOSPHATASE 83 Units/L (46-116); ASPARTATE AMINO TRANSFERASE 13 Units/L (15-37); BLOOD UREA NITROGEN 17 mg/dL (7-18); CALCIUM 7.4 mg/dL (8.5-10.1); CHLORIDE 105 mmol/L (98-107); COR CA(FOR HYPOALB) 9.4 mg/dL (8.5-10.1); COR NA(FOR HYPERGLY) 132 mmol/L (136-145); CREATININE 1.11 mg/dL (0.55-1.02); SODIUM 131 mmol/L (136-145); TOTAL PROTEIN 4.4 g/dL (6.4-8.2); eGFR NON BLACK RACES 50 (>60)
[2021-06-15 06:36] LABS: CARBON DIOXIDE 14.6 mmol/L (21-32)
[2021-06-15] MEDS ORDERED: LEXAPRO ONE (07:44)
[2021-06-15] MEDS ORDERED: PHARMACY COMMENT IV NR (08:30)
[2021-06-15] MEDS: HEMOCYTE-PLUS PO SCH ×2 (08:31→20:48)
[2021-06-15] MEDS: COLACE CAP 100 MG PO SCH ×2 (08:31→20:48)
[2021-06-15] MEDS: THIAMINE HCL INJ IVP SCH ×2 (08:32→20:48)
[2021-06-15] MEDS: SYNTHROID 50 mcg TAB PO SCH (08:32)
[2021-06-15] MEDS: SOLU-Cortef INJ IVP SCH ×4 (08:32→20:48)
[2021-06-15] MEDS: LEXAPRO PO SCH (08:32)
[2021-06-15] MEDS: ZOSYN VIAL 3.375 GRAMS 3.375 G in NS 100 ML IV 100 ML IV SCH ×2 (08:33→21:20)
[2021-06-15] MEDS: NAMENDA TAB 10 MG PO SCH ×2 (08:34→20:48)
[2021-06-15] MEDS: K-DUR TAB 20 MEQ PO PRN (08:34)
[2021-06-15 09:26] LABS: CREATININE 1.25 mg/dL (0.55-1.02); VANCOMYCIN,TROUGH 17.8 ug/mL (15-20)
[2021-06-15] MEDS ORDERED: HYDROGEN PEROXIDE 3% ONE (09:43)
[2021-06-15] MEDS: VANCOMYCIN IV *PREMIX 1 G/200 ML BAG 1 G/200 ML PIGGYBACK IV SCH (10:22)
--- NOTE | 2021-06-15 11:14 | DR.PROGNOT ---
Hospital Progress Notes - Progress Note for Day of: Progress Note Date: 06/15/21 - Chief Complaint Chief Complaint: PO debridement of large infected sacral ulcer.. dressing was changed irrigated with H2O2 and Saline . REPACKED WITH IODOFORM - Past Medical Family Social History Past Med/Fam/Surg Hx: No changes since H&P Allergies: Allergies No Known Drug Allergies Allergy (Verified 06/10/21 10:44) - Review Of Systems ROS: No change since H&P - Vital Signs Vital Signs: Temperature 97.6 F Pulse Rate [Left Radial] 99 Pulse Rate 87 Respiratory Rate 15 Blood Pressure [Right Arm] 104/56 Blood Pressure 111/65 O2 Sat by Pulse Oximetry 100 - Physical Exam Oriented: Normal Eyes: Normal Ear: Normal Nose: Normal Throat: Normal Respiratory: Diminished Cardiovascular: Normal : Dysuria GI:Auscultation: Normal GI:Palpation: Normal GI: Tenderness: Normal Skin: Wound (large stage 4 sacral 14x8 cm deep with exposed bone .) Musculoskeletal: Instability Psychiatric: Normal Mood Description: Calm, Appropriate Affect: Normal Speech Pattern: Clear, Appropriate - Laboratory and Diagnostics Result Diagrams: 06/15/21 05:49 06/15/21 08:52 Labs: 06/11/21 15:20 Sacral Wound Gram Stain - Final 06/11/21 15:20 Sacral Wound Culture - Final Enterococcus Faecalis 06/10/21 11:16 Blood Blood Culture - Final 06/10/21 11:34 Urine,Catheterized Urine Culture - Final Klebsiella Pneumoniae 06/10/21 11:20 Blood Blood Culture - Preliminary Laboratory WBC 18.3 X10^3/uL (3.6-10.0) H 06/15/21 05:49 RBC 3.65 X10^6/uL (3.5-5.4) 06/15/21 05:49 Hgb 10.8 g/dL (12.0-16.0) L 06/15/21 05:49 Hct 32.2 % (36.0-47.0) L 06/15/21 05:49 MCV 88.1 fL (80.0-100.0) 06/15/21 05:49 MCH 29.5 pg (27.0-34.0) 06/15/21 05:49 MCHC 33.5 g/dL (33.0-35.0) 06/15/21 05:49 RDW 19.3 % (11.6-16.5) H 06/15/21 05:49 Plt Count 353 X10^3/uL (150.0-450.0) 06/15/21 05:49 Plt Count Comment Adequate (ADEQUATE) 06/14/21 06:44 MPV 6.7 fL (7.4-11.0) L 06/15/21 05:49 Neut % (Auto) 89.3 % (42.0-75.0) H 06/15/21 05:49 Lymph % (Auto) 6.0 % (21.0-51.0) L 06/15/21 05:49 [place] % (Auto) 4.2 % (0.0-13.0) 06/15/21 05:49 Eos % (Auto) 0.0 % (0.9-2.9) L 06/15/21 05:49 Baso % (Auto) 0.5 % (0.2-1.0) 06/15/21 05:49 Neut # (Auto) 16.3 x10^3/uL (2.2-4.8) H 06/15/21 05:49 Lymph # (Auto) 1.1 X10^3/uL (1.3-2.9) L 06/15/21 05:49 [place] # (Auto) 0.8 x10^3/uL (0.3-0.8) 06/15/21 05:49 Eos # (Auto) 0.0 x10^3/uL (0.0-0.2) 06/15/21 05:49 Baso # (Auto) 0.1 X10^3/uL (0.0-0.1) 06/15/21 05:49 Absolute Nucleated RBC 0.1 /100WBC 06/15/21 05:49 Total Counted 100 06/14/21 06:44 Neutrophils % (Manual) 88 % (39-76) H 06/14/21 06:44 Band Neutrophils % 2 % (0-10) 06/14/21 06:44 Lymphocytes % (Manual) 6 % (13-43) L 06/14/21 06:44 Monocytes % (Manual) 4 % (4-9) 06/14/21 06:44 Eosinophils % (Manual) 1 % (0-6) 06/11/21 16:51 Metamyelocytes % 1 06/11/21 04:20 Plt Morphology Comment Normal (NORMAL) 06/14/21 06:44 RBC Morphology Abnormal (NORMAL) A 06/14/21 06:44 Anisocytosis Slight A 06/14/21 06:44 Sodium 131 mmol/L (136-145) L 06/15/21 05:49 Corrected Sodium 132 mmol/L (136-145) L 06/15/21 05:49 Potassium 3.8 mmol/L (3.5-5.1) 06/15/21 05:49 Chloride 105 mmol/L (98-107) 06/15/21 05:49 Carbon Dioxide 14.6 mmol/L (21-32) L* 06/15/21 05:49 BUN 17 mg/dL (7-18) 06/15/21 05:49 Creatinine 1.25 mg/dL (0.55-1.02) H 06/15/21 08:52 Est GFR (MDRD) Af Amer > 60 (>60) 06/15/21 05:49 Est GFR (MDRD) Non-Af 50 (>60) L 06/15/21 05:49 Glucose 124 mg/dL (65-99) H 06/15/21 05:49 Lactic Acid 1.1 mmol/L (0.4-2.0) 06/10/21 11:16 Calcium 7.4 mg/dL (8.5-10.1) L 06/15/21 05:49 Corrected Calcium 9.4 mg/dL (8.5-10.1) 06/15/21 05:49 Magnesium 2.0 mg/dL (1.7-2.9) 06/14/21 06:44 Magnesium 2.1 mg/dL (1.7-2.9) 06/14/21 06:44 Total Bilirubin 0.30 mg/dL (0.2-1.0) 06/15/21 05:49 AST 13 Units/L (15-37) L 06/15/21 05:49 ALT < 6 Units/L (12-78) L 06/15/21 05:49 Alkaline Phosphatase 83 Units/L (46-116) 06/15/21 05:49 Creatine Kinase 238 Units/L (26-192) H 06/10/21 11:16 CK-MB (CK-2) 7.3 ng/mL (0-4.0) H* 06/10/21 11:16 CK/CKMB % Calc 3.1 % (<4) 06/10/21 11:16 Troponin I High Sens 7.4 ng/L (4.0-60.0) 06/10/21 11:16 Total Protein 4.4 g/dL (6.4-8.2) L 06/15/21 05:49 Albumin 1.5 g/dL (3.4-5.0) L 06/15/21 05:49 Globulin 2.9 g/dL (2.5-4.5) 06/15/21 05:49 Albumin/Globulin Ratio 0.5 Ratio (1.1-2.1) L 06/15/21 05:49 TSH 3rd Generation 4.075 uIU/mL (0.358-3.74) H 06/10/21 11:16 Specimen Type Catherized urine 06/10/21 11:34 Urine Color Green (YELLOW) 06/10/21 11:34 Urine Appearance Turbid (CLEAR) 06/10/21 11:34 Urine pH 8.0 (5.0 - 8.0) 06/10/21 11:34 Ur Specific [place] 1.015 (1.000-1.030) 06/10/21 11:34 Urine Protein 4+ (NEGATIVE) 06/10/21 11:34 Urine Glucose (UA) Negative (NEGATIVE) 06/10/21 11:34 Urine Ketones 1+ (NEGATIVE) 06/10/21 11:34 Urine Blood 4+ (NEGATIVE) 06/10/21 11:34 Urine Nitrite Negative (NEGATIVE) 06/10/21 11:34 Urine Bilirubin Negative (NEGATIVE) 06/10/21 11:34 Urine Urobilinogen 1+ (NORMAL) 06/10/21 11:34 Ur Leukocyte Esterase 3+ (NEGATIVE) 06/10/21 11:34 Urine RBC 5-10 /HPF (0-3) A 06/10/21 11:34 Urine WBC Tntc /HPF (0-5) A 06/10/21 11:34 Ur Squamous Epith Cells Rare /HPF (NEGATIVE) 06/10/21 11:34 Urine Bacteria 1+ /HPF (NEGATIVE) 03/23/22 11:34 Ur Culture Indicated? 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 same local care with packing .. nutritional support and IV ABT . to apply wound Vac in am - Problem Patient Problems: Patient Problems Sepsis (Acute) A41.9 Acute hyponatremia (Acute) E87.1 Azotemia (Acute) R79.89 Acute UTI (Acute) N39.0 Decubitus ulcer of sacral region, stage 4 (Acute) L89.154
--- NOTE | 2021-06-15 11:28 | DR.UPDATE ---
H&P Update History and Physical Update: History and Physical reviewed and patient examined. Changes noted: NO Yes with the following:will place arterial line for invasive bp monitoring H&P Reviewed: Yes Patient was examined?: Yes Procedures (ALL) - Arterial Line Consent obtained: written consent Time out performed: Yes Size(gauge): 20 Technique used: guided wire technique (under direct u/s visualization) Post-procedure: dry sterile dressing placed Patient tolerated procedure: Yes Site: Left, radial
[2021-06-15] MEDS ORDERED: DOPAMINE IV PREMIX 400 MG/250 ML 400 MG/250 ML BAG IV ONE (14:58)
[2021-06-15] MEDS ORDERED: ALBURX INJ 5% 25 G/500 ML VIAL IV SCH (15:52)
--- NOTE | 2021-06-15 16:00 | PCM.PROG ---
Progress Note Progress Note for Day of Date of Exam: 06/15/21 Subjective Subjective: Pt is a 80 year old female past medical history of Hypertension, COPD, OA, admitted for Sepsis, Decubitus sacral ulcer, UTI, Hyponatremia, and Acute renal failure. She is post debridement of stage 4 sacral ulcer. Pt received 2 units packed red blood cells over the weekend. She is resting in bed this morning. Labs/imaging: Wbc 18.3, Hgb 10.8, Plt 353, Na 131, K 3.8, Creatinine 1.11, Glucose 124, Urine culture positive for Klebsiella pneu., Blood culture negative, Wound culture see report. Pt is currently receiving: IVF NS@150ml/h. She is also currently requiring vasopressor support Dopamine gtt @9mcg/kg/min to keep MAP>65. Wean/titrate vasopressor support per protocol and as tolerated. Continue antibiotics: IV Vancomycin, IV Zosyn, and IV Flagyl. Pt was started on hydrocortisone and thiamine over the weekend. Will order arterial line for accurate blood pressure measurement, IV albumin, and echo in the morning to evaluate cardiac function. Continue to monitor closely and follow up labs in the morning. Time spent on clinical assessment, reviewing labs and imaging, decision making, and documentation greater than 45 minutes. Past Medical Family Social History Past Med/Fam/Surg Hx: No changes since H&P Allergies: Allergies No Known Drug Allergies Allergy (Verified 06/10/21 10:44) Review of Systems ROS: No change since H&P Vital Signs and I&O's Vital Signs: Temperature 97.6 F Pulse Rate [Left Radial] 99 Pulse Rate 77 Respiratory Rate 12 Blood Pressure [Right Arm] 104/56 Blood Pressure 114/65 O2 Sat by Pulse Oximetry 99 Intake and Output: Intake & Output 06/12/21 06/13/21 06/14/21 06/15/21 23:59 23:59 23:59 23:59 Intake Total 5347 / 5347 5757 / 5757 6085 / 6085 1500 / 1500 Output Total 1425 / 1425 1325 / 1325 1300 / 1300 300 / 300 Balance 3922 / 3922 4432 / 4432 4785 / 4785 1200 / 1200 Physical Exam Oriented: Normal Eyes: Normal Ear: Normal Nose: Normal Throat: Normal Respiratory: Diminished Cardiovascular: Normal : Dysuria Auscultation: Bowel Sounds: Normal Tenderness: Normal Skin: Wound (large stage 4 sacral 14x8 cm deep with exposed bone .) Musculoskeletal: Instability Psychiatric: Normal Mood Description: Calm and Appropriate Affect: Normal Speech Pattern: Clear and Appropriate Laboratory and Diagnostics Result Diagrams: 06/15/21 05:49 06/15/21 08:52 Labs: 06/10/21 11:20 Blood Blood Culture - Final 06/11/21 15:20 Sacral Wound Gram Stain - Final 06/11/21 15:20 Sacral Wound Culture - Final Enterococcus Faecalis 06/10/21 11:16 Blood Blood Culture - Final 06/10/21 11:34 Urine,Catheterized Urine Culture - Final Klebsiella Pneumoniae Laboratory WBC 18.3 X10^3/uL (3.6-10.0) H 06/15/21 05:49 RBC 3.65 X10^6/uL (3.5-5.4) 06/15/21 05:49 Hgb 10.8 g/dL (12.0-16.0) L 06/15/21 05:49 Hct 32.2 % (36.0-47.0) L 06/15/21 05:49 MCV 88.1 fL (80.0-100.0) 06/15/21 05:49 MCH 29.5 pg (27.0-34.0) 06/15/21 05:49 MCHC 33.5 g/dL (33.0-35.0) 06/15/21 05:49 RDW 19.3 % (11.6-16.5) H 06/15/21 05:49 Plt Count 353 X10^3/uL (150.0-450.0) 06/15/21 05:49 Plt Count Comment Adequate (ADEQUATE) 06/14/21 06:44 MPV 6.7 fL (7.4-11.0) L 06/15/21 05:49 Neut % (Auto) 89.3 % (42.0-75.0) H 06/15/21 05:49 Lymph % (Auto) 6.0 % (21.0-51.0) L 06/15/21 05:49 [place] % (Auto) 4.2 % (0.0-13.0) 06/15/21 05:49 Eos % (Auto) 0.0 % (0.9-2.9) L 06/15/21 05:49 Baso % (Auto) 0.5 % (0.2-1.0) 06/15/21 05:49 Neut # (Auto) 16.3 x10^3/uL (2.2-4.8) H 06/15/21 05:49 Lymph # (Auto) 1.1 X10^3/uL (1.3-2.9) L 06/15/21 05:49 [place] # (Auto) 0.8 x10^3/uL (0.3-0.8) 06/15/21 05:49 Eos # (Auto) 0.0 x10^3/uL (0.0-0.2) 06/15/21 05:49 Baso # (Auto) 0.1 X10^3/uL (0.0-0.1) 06/15/21 05:49 Absolute Nucleated RBC 0.1 /100WBC 06/15/21 05:49 Total Counted 100 06/14/21 06:44 Neutrophils % (Manual) 88 % (39-76) H 06/14/21 06:44 Band Neutrophils % 2 % (0-10) 06/14/21 06:44 Lymphocytes % (Manual) 6 % (13-43) L 06/14/21 06:44 Monocytes % (Manual) 4 % (4-9) 06/14/21 06:44 Eosinophils % (Manual) 1 % (0-6) 06/11/21 16:51 Metamyelocytes % 1 06/11/21 04:20 Plt Morphology Comment Normal (NORMAL) 06/14/21 06:44 RBC Morphology Abnormal (NORMAL) A 06/14/21 06:44 Anisocytosis Slight A 06/14/21 06:44 Sodium 131 mmol/L (136-145) L 06/15/21 05:49 Corrected Sodium 132 mmol/L (136-145) L 06/15/21 05:49 Potassium 3.8 mmol/L (3.5-5.1) 06/15/21 05:49 Chloride 105 mmol/L (98-107) 06/15/21 05:49 Carbon Dioxide 14.6 mmol/L (21-32) L* 06/15/21 05:49 BUN 17 mg/dL (7-18) 06/15/21 05:49 Creatinine 1.25 mg/dL (0.55-1.02) H 06/15/21 08:52 Est GFR (MDRD) Af Amer > 60 (>60) 06/15/21 05:49 Est GFR (MDRD) Non-Af 50 (>60) L 06/15/21 05:49 Glucose 124 mg/dL (65-99) H 06/15/21 05:49 Lactic Acid 1.1 mmol/L (0.4-2.0) 06/10/21 11:16 Calcium 7.4 mg/dL (8.5-10.1) L 06/15/21 05:49 Corrected Calcium 9.4 mg/dL (8.5-10.1) 06/15/21 05:49 Magnesium 2.0 mg/dL (1.7-2.9) 06/14/21 06:44 Magnesium 2.1 mg/dL (1.7-2.9) 06/14/21 06:44 Total Bilirubin 0.30 mg/dL (0.2-1.0) 06/15/21 05:49 AST 13 Units/L (15-37) L 06/15/21 05:49 ALT < 6 Units/L (12-78) L 06/15/21 05:49 Alkaline Phosphatase 83 Units/L (46-116) 06/15/21 05:49 Creatine Kinase 238 Units/L (26-192) H 06/10/21 11:16 CK-MB (CK-2) 7.3 ng/mL (0-4.0) H* 06/10/21 11:16 CK/CKMB % Calc 3.1 % (<4) 06/10/21 11:16 Troponin I High Sens 7.4 ng/L (4.0-60.0) 06/10/21 11:16 Total Protein 4.4 g/dL (6.4-8.2) L 06/15/21 05:49 Albumin 1.5 g/dL (3.4-5.0) L 06/15/21 05:49 Globulin 2.9 g/dL (2.5-4.5) 06/15/21 05:49 Albumin/Globulin Ratio 0.5 Ratio (1.1-2.1) L 06/15/21 05:49 TSH 3rd Generation 4.075 uIU/mL (0.358-3.74) H 06/10/21 11:16 Specimen Type Catherized urine 06/10/21 11:34 Urine Color Green (YELLOW) 06/10/21 11:34 Urine Appearance Turbid (CLEAR) 06/10/21 11:34 Urine pH 8.0 (5.0 - 8.0) 06/10/21 11:34 Ur Specific [place] 1.015 (1.000-1.030) 06/10/21 11:34 Urine Protein 4+ (NEGATIVE) 06/10/21 11:34 Urine Glucose (UA) Negative (NEGATIVE) 06/10/21 11:34 Urine Ketones 1+ (NEGATIVE) 06/10/21 11:34 Urine Blood 4+ (NEGATIVE) 06/10/21 11:34 Urine Nitrite Negative (NEGATIVE) 06/10/21 11:34 Urine Bilirubin Negative (NEGATIVE) 06/10/21 11:34 Urine Urobilinogen 1+ (NORMAL) 06/10/21 11:34 Ur Leukocyte Esterase 3+ (NEGATIVE) 06/10/21 11:34 Urine RBC 5-10 /HPF (0-3) A 06/10/21 11:34 Urine WBC Tntc /HPF (0-5) A 06/10/21 11:34 Ur Squamous Epith Cells Rare /HPF (NEGATIVE) 06/10/21 11:34 Urine Bacteria 1+ /HPF (NEGATIVE) 06/10/21 11:34 Ur Culture Indicated? Yes/culture set up 06/10/21 11:34 Vancomycin Trough 17.8 ug/mL (15-20) 06/15/21 08:52 SARS CoV-2 RNA Rapid NEVAEH Negative (NEGATIVE) 06/10/21 11:19 Tissue Pathology To follow 06/11/21 15:20 Blood Type A POSITIVE 06/13/21 06:41 Antibody Screen Negative 06/13/21 06:41 Crossmatch See Detail 06/13/21 06:41 Plan (1) Sepsis: Status: Acute Qualifiers: Acute renal failure type: unspecified Sepsis acute organ dysfunction status: with acute organ dysfunction Sepsis type: sepsis due to unspecified organism Severe sepsis acute organ dysfunction type: acute renal failure Severe sepsis shock status: with septic shock Qualified Code(s): A41.9 - Sepsis, unspecified organism; R65.21 - Severe sepsis with septic shock; N17.9 - Acute kidney failure, unspecified Plan: IVF, IV antibiotics, continue dopamine gtt (2) Acute hyponatremia: Status: Acute (3) Acute UTI: Status: Acute (4) Acute hypotension: Status: Acute (5) Hyponatremia: Status: Acute (6) Acute renal failure: Status: Acute (7) Decubitus ulcer of sacral region, stage 4: Status: Acute Plan: Consult general surgery
[2021-06-15] MEDS: ALBUMIN HUMAN 25%- 100 ML 100 ML IV SCH (16:08)
[2021-06-16] MEDS: NS 1,000 ML IV 1,000 ML IV SCH ×3 (03:46→18:01)
[2021-06-16] MEDS: DOPAMINE IV PREMIX 400 MG/250 ML 400 MG/250 ML BAG IV PRN ×2 (04:30→23:06)
[2021-06-16] MEDS: FLAGYL IV PREMIX 500 MG BAG 500 MG/100 ML BAG IV SCH ×3 (05:22→22:06)
[2021-06-16] MEDS: SINEMET (PLAIN) 10/100 MG PO SCH ×3 (05:23→22:06)
[2021-06-16 05:54] LABS: BASOPHILS % (AUTO) 0.1 % (0.2-1.0); HEMATOCRIT 25.3 % (36.0-47.0); LYMPHOCYTES # (AUTO) 1.3 X10^3/uL (1.3-2.9); LYMPHOCYTES % (AUTO) 8.7 % (21.0-51.0); MEAN CORPUSCULAR HEMOGLOBIN 29.2 pg (27.0-34.0); MEAN CORPUSCULAR HGB CONC 32.9 g/dL (33.0-35.0); MEAN CORPUSCULAR VOLUME 88.9 fL (80.0-100.0); MEAN PLATELET VOLUME 6.8 fL (7.4-11.0); MONOCYTES # (AUTO) 0.7 x10^3/uL (0.3-0.8); MONOCYTES % (AUTO) 4.9 % (0.0-13.0); NEUTROPHILS # (AUTO) 12.6 x10^3/uL (2.2-4.8); NEUTROPHILS % (AUTO) 86.3 % (42.0-75.0); RED BLOOD COUNT 2.84 X10^6/uL (3.5-5.4); RED CELL DISTRIBUTION WIDTH 19.8 % (11.6-16.5); WHITE BLOOD COUNT 14.6 X10^3/uL (3.6-10.0)
[2021-06-16 05:59] LABS: HEMOGLOBIN 8.3 g/dL (12.0-16.0)
[2021-06-16 06:07] LABS: ALBUMIN 1.7 g/dL (3.4-5.0); ALKALINE PHOSPHATASE 61 Units/L (46-116); ASPARTATE AMINO TRANSFERASE 6 Units/L (15-37); BLOOD UREA NITROGEN 15 mg/dL (7-18); CALCIUM 6.9 mg/dL (8.5-10.1); CHLORIDE 108 mmol/L (98-107); COR CA(FOR HYPOALB) 8.7 mg/dL (8.5-10.1); COR NA(FOR HYPERGLY) 135 mmol/L (136-145); SODIUM 134 mmol/L (136-145); TOTAL PROTEIN 3.9 g/dL (6.4-8.2); eGFR NON BLACK RACES 57 (>60)
[2021-06-16 06:18] LABS: ALANINE AMINOTRANSFERASE < 6 Units/L (12-78)
[2021-06-16] MEDS ORDERED: LEXAPRO ONE (08:09)
[2021-06-16] MEDS ORDERED: LASIX PO ONE (08:21)
[2021-06-16] MEDS: ALBUMIN HUMAN 25%- 100 ML 100 ML IV SCH (08:22)
[2021-06-16] MEDS: K-RIDER 10 MEQ/NS 100 ML 10 MEQ/100 ML BAG IV PRN ×4 (08:23→11:39)
[2021-06-16] MEDS: ZOSYN VIAL 3.375 GRAMS 3.375 G in NS 100 ML IV 100 ML IV SCH ×2 (09:23→21:00)
[2021-06-16] MEDS: ASCORBIC ACID INJ MULTI-DOSE VIAL 1,500 MG in NS 50 ML IV 50 ML IV SCH ×5 (09:24→20:19)
[2021-06-16] MEDS: COLACE CAP 100 MG PO SCH ×2 (09:25→20:20)
[2021-06-16] MEDS: PROTONIX INJ 40 MG VIAL IVP SCH ×2 (09:26→20:25)
[2021-06-16] MEDS: HEMOCYTE-PLUS PO SCH ×2 (09:26→20:22)
[2021-06-16] MEDS: LEXAPRO PO SCH (09:26)
[2021-06-16] MEDS: THIAMINE HCL INJ IVP SCH ×2 (09:27→20:28)
[2021-06-16] MEDS: SOLU-Cortef INJ IVP SCH ×4 (09:27→20:27)
[2021-06-16] MEDS: VANCOMYCIN IV *PREMIX 1 G/200 ML BAG 1 G/200 ML PIGGYBACK IV SCH (09:27)
[2021-06-16] MEDS: SYNTHROID 50 mcg TAB PO SCH (09:27)
[2021-06-16] MEDS: NAMENDA TAB 10 MG PO SCH ×2 (09:27→20:23)
[2021-06-16] MEDS: MAALOX or MYLANTA PO PRN (10:39)
--- NOTE | 2021-06-16 10:52 | DR.PROGNOT ---
Hospital Progress Notes - Progress Note for Day of: Progress Note Date: 06/16/21 - Chief Complaint Chief Complaint: no new c/o . PO debridement of large infected sacral ulcer.. the ulcer is fairly clean and will place wound vac . - Past Medical Family Social History Past Med/Fam/Surg Hx: No changes since H&P Allergies: Allergies No Known Drug Allergies Allergy (Verified 06/10/21 10:44) - Review Of Systems ROS: No change since H&P - Vital Signs Vital Signs: Temperature 98.0 F Pulse Rate [Left Radial] 99 Pulse Rate 74 Respiratory Rate 15 Blood Pressure [Right Arm] 104/56 Blood Pressure 95/55 O2 Sat by Pulse Oximetry 99 - Physical Exam Oriented: Normal Eyes: Normal Ear: Normal Nose: Normal Throat: Normal Respiratory: Diminished Cardiovascular: Normal : Dysuria GI:Auscultation: Normal GI:Palpation: Normal GI: Tenderness: Normal Skin: Wound (large stage 4 sacral 14x8 cm deep with exposed bone .) Musculoskeletal: Instability Psychiatric: Normal Mood Description: Calm, Appropriate Affect: Normal Speech Pattern: Clear, Appropriate - Laboratory and Diagnostics Result Diagrams: 06/16/21 05:17 06/16/21 05:17 Labs: 06/10/21 11:20 Blood Blood Culture - Final 06/11/21 15:20 Sacral Wound Gram Stain - Final 06/11/21 15:20 Sacral Wound Culture - Final Enterococcus Faecalis 06/10/21 11:16 Blood Blood Culture - Final 06/10/21 11:34 Urine,Catheterized Urine Culture - Final Klebsiella Pneumoniae Laboratory WBC 14.6 X10^3/uL (3.6-10.0) H 06/16/21 05:17 RBC 2.84 X10^6/uL (3.5-5.4) L 06/16/21 05:17 Hgb 8.3 g/dL (12.0-16.0) L D 06/16/21 05:17 Hct 25.3 % (36.0-47.0) L 06/16/21 05:17 MCV 88.9 fL (80.0-100.0) 06/16/21 05:17 MCH 29.2 pg (27.0-34.0) 06/16/21 05:17 MCHC 32.9 g/dL (33.0-35.0) L 06/16/21 05:17 RDW 19.8 % (11.6-16.5) H 06/16/21 05:17 Plt Count 276 X10^3/uL (150.0-450.0) 06/16/21 05:17 Plt Count Comment Adequate (ADEQUATE) 06/14/21 06:44 MPV 6.8 fL (7.4-11.0) L 06/16/21 05:17 Neut % (Auto) 86.3 % (42.0-75.0) H 06/16/21 05:17 Lymph % (Auto) 8.7 % (21.0-51.0) L 06/16/21 05:17 [place] % (Auto) 4.9 % (0.0-13.0) 06/16/21 05:17 Eos % (Auto) 0.0 % (0.9-2.9) L 06/16/21 05:17 Baso % (Auto) 0.1 % (0.2-1.0) L 06/16/21 05:17 Neut # (Auto) 12.6 x10^3/uL (2.2-4.8) H 06/16/21 05:17 Lymph # (Auto) 1.3 X10^3/uL (1.3-2.9) 06/16/21 05:17 [place] # (Auto) 0.7 x10^3/uL (0.3-0.8) 06/16/21 05:17 Eos # (Auto) 0.0 x10^3/uL (0.0-0.2) 06/16/21 05:17 Baso # (Auto) 0.0 X10^3/uL (0.0-0.1) 06/16/21 05:17 Absolute Nucleated RBC 0.1 /100WBC 06/16/21 05:17 Total Counted 100 06/14/21 06:44 Neutrophils % (Manual) 88 % (39-76) H 06/14/21 06:44 Band Neutrophils % 2 % (0-10) 06/14/21 06:44 Lymphocytes % (Manual) 6 % (13-43) L 06/14/21 06:44 Monocytes % (Manual) 4 % (4-9) 06/14/21 06:44 Eosinophils % (Manual) 1 % (0-6) 06/11/21 16:51 Metamyelocytes % 1 06/11/21 04:20 Plt Morphology Comment Normal (NORMAL) 06/14/21 06:44 RBC Morphology Abnormal (NORMAL) A 06/14/21 06:44 Anisocytosis Slight A 06/14/21 06:44 Sodium 134 mmol/L (136-145) L 06/16/21 05:17 Corrected Sodium 135 mmol/L (136-145) L 06/16/21 05:17 Potassium 3.2 mmol/L (3.5-5.1) L 06/16/21 05:17 Chloride 108 mmol/L (98-107) H 06/16/21 05:17 Carbon Dioxide 15.0 mmol/L (21-32) L 06/16/21 05:17 BUN 15 mg/dL (7-18) 06/16/21 05:17 Creatinine 1.00 mg/dL (0.55-1.02) 06/16/21 05:17 Est GFR (MDRD) Af Amer > 60 (>60) 06/16/21 05:17 Est GFR (MDRD) Non-Af 57 (>60) L 06/16/21 05:17 Glucose 148 mg/dL (65-99) H 06/16/21 05:17 Lactic Acid 1.1 mmol/L (0.4-2.0) 06/10/21 11:16 Calcium 6.9 mg/dL (8.5-10.1) L 06/16/21 05:17 Corrected Calcium 8.7 mg/dL (8.5-10.1) 06/16/21 05:17 Magnesium 1.8 mg/dL (1.7-2.9) 06/16/21 05:17 Iron 65 ug/dL (50-175) 06/16/21 05:17 Transferrin 62 mg/dL (202-364) L 06/16/21 05:17 Ferritin 230 ng/mL (8-252) 06/16/21 05:17 Total Bilirubin 0.70 mg/dL (0.2-1.0) 06/16/21 05:17 AST 6 Units/L (15-37) L 06/16/21 05:17 ALT < 6 Units/L (12-78) L 06/16/21 05:17 Alkaline Phosphatase 61 Units/L (46-116) 06/16/21 05:17 Creatine Kinase 238 Units/L (26-192) H 06/10/21 11:16 CK-MB (CK-2) 7.3 ng/mL (0-4.0) H* 06/10/21 11:16 CK/CKMB % Calc 3.1 % (<4) 06/10/21 11:16 Troponin I High Sens 7.4 ng/L (4.0-60.0) 06/10/21 11:16 Total Protein 3.9 g/dL (6.4-8.2) L 06/16/21 05:17 Albumin 1.7 g/dL (3.4-5.0) L 06/16/21 05:17 Globulin 2.2 g/dL (2.5-4.5) L 06/16/21 05:17 Albumin/Globulin Ratio 0.8 Ratio (1.1-2.1) L 06/16/21 05:17 Vitamin B12 300 pg/mL (193-986) 06/16/21 05:17 Folate 18.1 ng/mL (>8.6) 06/16/21 05:17 TSH 3rd Generation 4.075 uIU/mL (0.358-3.74) H 06/10/21 11:16 Specimen Type Catherized urine 06/10/21 11:34 Urine Color Green (YELLOW) 06/10/21 11:34 Urine Appearance Turbid (CLEAR) 06/10/21 11:34 Urine pH 8.0 (5.0 - 8.0) 06/10/21 11:34 Ur Specific [place] 1.015 (1.000-1.030) 06/10/21 11:34 Urine Protein 4+ (NEGATIVE) 06/10/21 11:34 Urine Glucose (UA) Negative (NEGATIVE) 06/10/21 11:34 Urine Ketones 1+ (NEGATIVE) 06/10/21 11:34 Urine Blood 4+ (NEGATIVE) 06/10/21 11:34 Urine Nitrite Negative (NEGATIVE) 06/10/21 11:34 Urine Bilirubin Negative (NEGATIVE) 06/10/21 11:34 Urine Urobilinogen 1+ (NORMAL) 06/10/21 11:34 Ur Leukocyte Esterase 3+ (NEGATIVE) 06/10/21 11:34 Urine RBC 5-10 /HPF (0-3) A 06/10/21 11:34 Urine WBC Tntc /HPF (0-5) A 06/10/21 11:34 Ur Squamous Epith Cells Rare /HPF (NEGATIVE) 06/10/21 11:34 Urine Bacteria 1+ /HPF (NEGATIVE) 06/10/21 11:34 Ur Culture Indicated? 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 same local care with packing .. nutritional support and IV ABT . add Albumin IV . to apply wound Vac today . - Problem Patient Problems: Patient Problems Sepsis (Acute) A41.9 Acute hyponatremia (Acute) E87.1 Azotemia (Acute) R79.89 Acute UTI (Acute) N39.0 Decubitus ulcer of sacral region, stage 4 (Acute) L89.154
[2021-06-16] MEDS: MAGNESIUM SULFATE 1 GRAM/100 mL PREMIX 1 G/100 ML BAG IV PRN ×2 (12:30→17:59)
--- NOTE | 2021-06-16 13:02 | PCM.PROG ---
Progress Note Progress Note for Day of Date of Exam: 06/16/21 Subjective Subjective: Pt is a 80 year old female past medical history of Hypertension, COPD, OA, admitted for Sepsis, Decubitus sacral ulcer, UTI, Hyponatremia, and Acute renal failure. She is post debridement of stage 4 sacral ulcer. Pt received 2 units packed red blood cells over the weekend. Early this morning she was reported having large amount of dark tarry stools. Will get stool occult and anemia panel for evaluation. Labs/imaging: Wbc 14.6, Hgb 8.3, Plt 276, Na 134, K 3.2, Creatinine 1.00, Glucose 148, Urine culture positive for Klebsiella pneu., Blood culture negative, Wound culture see report. Pt is currently receiving: IVF NS@150ml/h. She is also currently requiring vasopressor support Dopamine gtt @9mcg/kg/min to keep MAP>65. Arterial line has been placed. Wean/titrate vasopressor support per protocol and as tolerated. Continue antibiotics: IV Vancomycin, IV Zosyn, and IV Flagyl. Treatments also include: IV Albumin, hydrocortisone, thiamine, will add IV Vitamin C. Echo revealed EF:58%. Pt to have wound vac placed on sacral ulcer today. Replete potassium per protocol. Continue to monitor closely and follow up labs in the morning. Time spent on clinical assessment, reviewing labs and imaging, decision making, and documentation greater than 45 minutes. Past Medical Family Social History Past Med/Fam/Surg Hx: No changes since H&P Allergies: Allergies No Known Drug Allergies Allergy (Verified 06/10/21 10:44) Review of Systems ROS: No change since H&P Vital Signs and I&O's Vital Signs: Temperature 98.3 F Pulse Rate [Left Radial] 99 Pulse Rate 77 Respiratory Rate 17 Blood Pressure [Right Arm] 104/56 Blood Pressure 92/57 O2 Sat by Pulse Oximetry 98 Intake and Output: Intake & Output 06/13/21 06/14/21 06/15/21 06/16/21 23:59 23:59 23:59 23:59 Intake Total 5757 / 5757 6085 / 6085 4067 / 4067 1225 / 1225 Output Total 1325 / 1325 1300 / 1300 850 / 850 300 / 300 Balance 4432 / 4432 4785 / 4785 3217 / 3217 925 / 925 Physical Exam Oriented: Normal Eyes: Normal Ear: Normal Nose: Normal Throat: Normal Respiratory: Diminished Cardiovascular: Normal : Normal Auscultation: Bowel Sounds: Normal Tenderness: Normal Skin: Wound (large stage 4 sacral 14x8 cm deep with exposed bone .) Musculoskeletal: Instability Psychiatric: Normal Mood Description: Calm and Appropriate Affect: Normal Speech Pattern: Clear and Appropriate Laboratory and Diagnostics Result Diagrams: 06/17/21 04:30 06/17/21 04:30 Labs: 06/10/21 11:20 Blood Blood Culture - Final 06/11/21 15:20 Sacral Wound Gram Stain - Final 06/11/21 15:20 Sacral Wound Culture - Final Enterococcus Faecalis 06/10/21 11:16 Blood Blood Culture - Final 06/10/21 11:34 Urine,Catheterized Urine Culture - Final Klebsiella Pneumoniae Laboratory WBC 14.6 X10^3/uL (3.6-10.0) H 06/16/21 05:17 RBC 2.84 X10^6/uL (3.5-5.4) L 06/16/21 05:17 Hgb 8.3 g/dL (12.0-16.0) L D 06/16/21 05:17 Hct 25.3 % (36.0-47.0) L 06/16/21 05:17 MCV 88.9 fL (80.0-100.0) 06/16/21 05:17 MCH 29.2 pg (27.0-34.0) 06/16/21 05:17 MCHC 32.9 g/dL (33.0-35.0) L 06/16/21 05:17 RDW 19.8 % (11.6-16.5) H 06/16/21 05:17 Plt Count 276 X10^3/uL (150.0-450.0) 06/16/21 05:17 Plt Count Comment Adequate (ADEQUATE) 06/14/21 06:44 MPV 6.8 fL (7.4-11.0) L 06/16/21 05:17 Neut % (Auto) 86.3 % (42.0-75.0) H 06/16/21 05:17 Lymph % (Auto) 8.7 % (21.0-51.0) L 06/16/21 05:17 [place] % (Auto) 4.9 % (0.0-13.0) 06/16/21 05:17 Eos % (Auto) 0.0 % (0.9-2.9) L 06/16/21 05:17 Baso % (Auto) 0.1 % (0.2-1.0) L 06/16/21 05:17 Neut # (Auto) 12.6 x10^3/uL (2.2-4.8) H 06/16/21 05:17 Lymph # (Auto) 1.3 X10^3/uL (1.3-2.9) 06/16/21 05:17 [place] # (Auto) 0.7 x10^3/uL (0.3-0.8) 06/16/21 05:17 Eos # (Auto) 0.0 x10^3/uL (0.0-0.2) 06/16/21 05:17 Baso # (Auto) 0.0 X10^3/uL (0.0-0.1) 06/16/21 05:17 Absolute Nucleated RBC 0.1 /100WBC 06/16/21 05:17 Total Counted 100 06/14/21 06:44 Neutrophils % (Manual) 88 % (39-76) H 06/14/21 06:44 Band Neutrophils % 2 % (0-10) 06/14/21 06:44 Lymphocytes % (Manual) 6 % (13-43) L 06/14/21 06:44 Monocytes % (Manual) 4 % (4-9) 06/14/21 06:44 Eosinophils % (Manual) 1 % (0-6) 06/11/21 16:51 Metamyelocytes % 1 06/11/21 04:20 Plt Morphology Comment Normal (NORMAL) 06/14/21 06:44 RBC Morphology Abnormal (NORMAL) A 06/14/21 06:44 Anisocytosis Slight A 06/14/21 06:44 Sodium 134 mmol/L (136-145) L 06/16/21 05:17 Corrected Sodium 135 mmol/L (136-145) L 06/16/21 05:17 Potassium 3.2 mmol/L (3.5-5.1) L 06/16/21 05:17 Chloride 108 mmol/L (98-107) H 06/16/21 05:17 Carbon Dioxide 15.0 mmol/L (21-32) L 06/16/21 05:17 BUN 15 mg/dL (7-18) 06/16/21 05:17 Creatinine 1.00 mg/dL (0.55-1.02) 06/16/21 05:17 Est GFR (MDRD) Af Amer > 60 (>60) 06/16/21 05:17 Est GFR (MDRD) Non-Af 57 (>60) L 06/16/21 05:17 Glucose 148 mg/dL (65-99) H 06/16/21 05:17 Lactic Acid 1.1 mmol/L (0.4-2.0) 06/10/21 11:16 Calcium 6.9 mg/dL (8.5-10.1) L 06/16/21 05:17 Corrected Calcium 8.7 mg/dL (8.5-10.1) 06/16/21 05:17 Magnesium 1.8 mg/dL (1.7-2.9) 06/16/21 05:17 Iron 65 ug/dL (50-175) 06/16/21 05:17 Transferrin 62 mg/dL (202-364) L 06/16/21 05:17 Ferritin 230 ng/mL (8-252) 06/16/21 05:17 Total Bilirubin 0.70 mg/dL (0.2-1.0) 06/16/21 05:17 AST 6 Units/L (15-37) L 06/16/21 05:17 ALT < 6 Units/L (12-78) L 06/16/21 05:17 Alkaline Phosphatase 61 Units/L (46-116) 06/16/21 05:17 Creatine Kinase 238 Units/L (26-192) H 06/10/21 11:16 CK-MB (CK-2) 7.3 ng/mL (0-4.0) H* 06/10/21 11:16 CK/CKMB % Calc 3.1 % (<4) 06/10/21 11:16 Troponin I High Sens 7.4 ng/L (4.0-60.0) 06/10/21 11:16 Total Protein 3.9 g/dL (6.4-8.2) L 06/16/21 05:17 Albumin 1.7 g/dL (3.4-5.0) L 06/16/21 05:17 Globulin 2.2 g/dL (2.5-4.5) L 06/16/21 05:17 Albumin/Globulin Ratio 0.8 Ratio (1.1-2.1) L 06/16/21 05:17 Vitamin B12 300 pg/mL (193-986) 06/16/21 05:17 Folate 18.1 ng/mL (>8.6) 06/16/21 05:17 TSH 3rd Generation 4.075 uIU/mL (0.358-3.74) H 06/10/21 11:16 Specimen Type Catherized urine 06/10/21 11:34 Urine Color Green (YELLOW) 06/10/21 11:34 Urine Appearance Turbid (CLEAR) 06/10/21 11:34 Urine pH 8.0 (5.0 - 8.0) 06/10/21 11:34 Ur Specific [place] 1.015 (1.000-1.030) 06/10/21 11:34 Urine Protein 4+ (NEGATIVE) 06/10/21 11:34 Urine Glucose (UA) Negative (NEGATIVE) 06/10/21 11:34 Urine Ketones 1+ (NEGATIVE) 06/10/21 11:34 Urine Blood 4+ (NEGATIVE) 06/10/21 11:34 Urine Nitrite Negative (NEGATIVE) 06/10/21 11:34 Urine Bilirubin Negative (NEGATIVE) 06/10/21 11:34 Urine Urobilinogen 1+ (NORMAL) 06/10/21 11:34 Ur Leukocyte Esterase 3+ (NEGATIVE) 06/10/21 11:34 Urine RBC 5-10 /HPF (0-3) A 06/10/21 11:34 Urine WBC Tntc /HPF (0-5) A 06/10/21 11:34 Ur Squamous Epith Cells Rare /HPF (NEGATIVE) 06/10/21 11:34 Urine Bacteria 1+ /HPF (NEGATIVE) 06/10/21 11:34 Ur Culture Indicated? Yes/culture set up 06/10/21 11:34 Vancomycin Trough 17.8 ug/mL (15-20) 06/15/21 08:52 SARS CoV-2 RNA Rapid NEVAEH Negative (NEGATIVE) 06/10/21 11:19 Tissue Pathology To follow 06/11/21 15:20 Blood Type A POSITIVE 06/13/21 06:41 Antibody Screen Negative 06/13/21 06:41 Crossmatch See Detail 06/13/21 06:41 Plan (1) Sepsis: Status: Acute Qualifiers: Acute renal failure type: unspecified Sepsis acute organ dysfunction status: with acute organ dysfunction Sepsis type: sepsis due to unspecified organism Severe sepsis acute organ dysfunction type: acute renal failure Severe sepsis shock status: with septic shock Qualified Code(s): A41.9 - Sepsis, unspecified organism; R65.21 - Severe sepsis with septic shock; N17.9 - Acute kidney failure, unspecified Plan: IVF, IV antibiotics, continue dopamine gtt (2) Acute hyponatremia: Status: Acute (3) Acute UTI: Status: Acute (4) Acute hypotension: Status: Acute (5) Hyponatremia: Status: Acute (6) Acute renal failure: Status: Acute (7) Decubitus ulcer of sacral region, stage 4: Status: Acute Plan: Consult general surgery
[2021-06-17] MEDS: ASCORBIC ACID INJ MULTI-DOSE VIAL 1,500 MG in NS 50 ML IV 50 ML IV SCH ×4 (03:26→20:55)
[2021-06-17] MEDS: NS 1,000 ML IV 1,000 ML IV SCH ×3 (03:26→10:57)
[2021-06-17] MEDS: FLAGYL IV PREMIX 500 MG BAG 500 MG/100 ML BAG IV SCH ×3 (05:17→22:50)
[2021-06-17] MEDS: SINEMET (PLAIN) 10/100 MG PO SCH ×3 (05:17→21:06)
[2021-06-17 05:33] LABS: BASOPHILS # (AUTO) 0.1 X10^3/uL (0.0-0.1); BASOPHILS % (AUTO) 0.5 % (0.2-1.0); HEMATOCRIT 25.2 % (36.0-47.0); HEMOGLOBIN 8.1 g/dL (12.0-16.0); LYMPHOCYTES % (AUTO) 6.5 % (21.0-51.0); MEAN CORPUSCULAR HEMOGLOBIN 28.8 pg (27.0-34.0); MEAN CORPUSCULAR HGB CONC 32.2 g/dL (33.0-35.0); MEAN CORPUSCULAR VOLUME 89.3 fL (80.0-100.0); MEAN PLATELET VOLUME 7.5 fL (7.4-11.0); MONOCYTES # (AUTO) 0.5 x10^3/uL (0.3-0.8); MONOCYTES % (AUTO) 3.3 % (0.0-13.0); NEUTROPHILS % (AUTO) 89.7 % (42.0-75.0); RED BLOOD COUNT 2.82 X10^6/uL (3.5-5.4); RED CELL DISTRIBUTION WIDTH 19.7 % (11.6-16.5); WHITE BLOOD COUNT 15.6 X10^3/uL (3.6-10.0)
[2021-06-17 05:42] LABS: ALBUMIN 2.1 g/dL (3.4-5.0); ALKALINE PHOSPHATASE 55 Units/L (46-116); ASPARTATE AMINO TRANSFERASE 7 Units/L (15-37); BLOOD UREA NITROGEN 13 mg/dL (7-18); CALCIUM 7.4 mg/dL (8.5-10.1); CARBON DIOXIDE 16.1 mmol/L (21-32); CHLORIDE 109 mmol/L (98-107); COR CA(FOR HYPOALB) 8.9 mg/dL (8.5-10.1); COR NA(FOR HYPERGLY) 138 mmol/L (136-145); CREATININE 1.03 mg/dL (0.55-1.02); SODIUM 137 mmol/L (136-145); TOTAL PROTEIN 4.1 g/dL (6.4-8.2); eGFR NON BLACK RACES 55 (>60)
[2021-06-17 06:03] LABS: ALANINE AMINOTRANSFERASE < 6 Units/L (12-78)
[2021-06-17] MEDS: ALBUMIN HUMAN 25%- 100 ML 100 ML IV SCH ×2 (08:00→09:00)
--- NOTE | 2021-06-17 09:23 | PCM.PROG ---
Progress Note Progress Note for Day of Date of Exam: 06/17/21 Subjective Subjective: Pt is a 80 year old female past medical history of Hypertension, COPD, OA, admitted for Sepsis, Decubitus sacral ulcer, UTI, Hyponatremia, and Acute renal failure. She is post debridement of stage 4 sacral ulcer. Pt has received a total of 2 units packed red blood cells. This morning she is eating breakfast, no acute concerns overnight. Wound vac was placed yesterday. Labs/imaging: Wbc 15.6, Hgb 8.1, Plt 252, Na 137, K 3.1, Creatinine 1.03, Glucose 125, Urine culture positive for Klebsiella pneu., Blood culture negative, Wound culture see report. Stool occult negative, and anemia panel appropriate. Pt is currently receiving: IVF NS@150ml/h. She is also currently requiring vasopressor support Dopamine gtt 4mcg/kg/min to keep MAP>65. Arterial line placed. Wean/titrate vasopressor support per protocol and as tolerated. Overall her blood pressure has been gradually improving. She has started to show some signs of edema, will decrease IVF to 100ml/h. Continue antibiotics: IV Vancomycin, IV Zosyn, and IV Flagyl. Treatments also include: IV Albumin, hydrocortisone, thiamine, IV Vitamin C, IV protonix 40mg BID. Replete potassium per protocol. Continue to monitor closely and follow up labs in the morning. Time spent on clinical assessment, reviewing labs and imaging, decision making, and documentation greater than 45 minutes. Past Medical Family Social History Past Med/Fam/Surg Hx: No changes since H&P Allergies: Allergies No Known Drug Allergies Allergy (Verified 06/10/21 10:44) Review of Systems ROS: No change since H&P Vital Signs and I&O's Vital Signs: Temperature 97.5 F Pulse Rate [Left Radial] 99 Pulse Rate 67 Respiratory Rate 15 Blood Pressure [Right Arm] 104/56 Blood Pressure 105/60 O2 Sat by Pulse Oximetry 99 Intake and Output: Intake & Output 06/14/21 06/15/21 06/16/21 06/17/21 23:59 23:59 23:59 23:59 Intake Total 6085 / 6085 4067 / 4067 5314 / 5314 845 / 845 Output Total 1300 / 1300 850 / 850 1950 / 1950 300 / 300 Balance 4785 / 4785 3217 / 3217 3364 / 3364 545 / 545 Physical Exam Oriented: Normal Eyes: Normal Ear: Normal Nose: Normal Throat: Normal Respiratory: Normal Cardiovascular: Normal : Normal Auscultation: Bowel Sounds: Normal Tenderness: Normal Skin: Wound (wound vac sacrum) Musculoskeletal: Instability Psychiatric: Normal Mood Description: Calm and Appropriate Affect: Normal Speech Pattern: Clear and Appropriate Laboratory and Diagnostics Result Diagrams: 06/17/21 04:30 06/17/21 04:30 Labs: 06/10/21 11:20 Blood Blood Culture - Final 06/11/21 15:20 Sacral Wound Gram Stain - Final 06/11/21 15:20 Sacral Wound Culture - Final Enterococcus Faecalis 06/10/21 11:16 Blood Blood Culture - Final 06/10/21 11:34 Urine,Catheterized Urine Culture - Final Klebsiella Pneumoniae Laboratory WBC 15.6 X10^3/uL (3.6-10.0) H 06/17/21 04:30 RBC 2.82 X10^6/uL (3.5-5.4) L 06/17/21 04:30 Hgb 8.1 g/dL (12.0-16.0) L 06/17/21 04:30 Hct 25.2 % (36.0-47.0) L 06/17/21 04:30 MCV 89.3 fL (80.0-100.0) 06/17/21 04:30 MCH 28.8 pg (27.0-34.0) 06/17/21 04:30 MCHC 32.2 g/dL (33.0-35.0) L 06/17/21 04:30 RDW 19.7 % (11.6-16.5) H 06/17/21 04:30 Plt Count 252 X10^3/uL (150.0-450.0) 06/17/21 04:30 Plt Count Comment Adequate (ADEQUATE) 06/14/21 06:44 MPV 7.5 fL (7.4-11.0) 06/17/21 04:30 Neut % (Auto) 89.7 % (42.0-75.0) H 06/17/21 04:30 Lymph % (Auto) 6.5 % (21.0-51.0) L 06/17/21 04:30 [place] % (Auto) 3.3 % (0.0-13.0) 06/17/21 04:30 Eos % (Auto) 0.0 % (0.9-2.9) L 06/17/21 04:30 Baso % (Auto) 0.5 % (0.2-1.0) 06/17/21 04:30 Neut # (Auto) 14.0 x10^3/uL (2.2-4.8) H 06/17/21 04:30 Lymph # (Auto) 1.0 X10^3/uL (1.3-2.9) L 06/17/21 04:30 [place] # (Auto) 0.5 x10^3/uL (0.3-0.8) 06/17/21 04:30 Eos # (Auto) 0.0 x10^3/uL (0.0-0.2) 06/17/21 04:30 Baso # (Auto) 0.1 X10^3/uL (0.0-0.1) 06/17/21 04:30 Absolute Nucleated RBC 0.0 /100WBC 06/17/21 04:30 Total Counted 100 06/14/21 06:44 Neutrophils % (Manual) 88 % (39-76) H 06/14/21 06:44 Band Neutrophils % 2 % (0-10) 06/14/21 06:44 Lymphocytes % (Manual) 6 % (13-43) L 06/14/21 06:44 Monocytes % (Manual) 4 % (4-9) 06/14/21 06:44 Eosinophils % (Manual) 1 % (0-6) 06/11/21 16:51 Metamyelocytes % 1 06/11/21 04:20 Plt Morphology Comment Normal (NORMAL) 06/14/21 06:44 RBC Morphology Abnormal (NORMAL) A 06/14/21 06:44 Anisocytosis Slight A 06/14/21 06:44 Sodium 137 mmol/L (136-145) 06/17/21 04:30 Corrected Sodium 138 mmol/L (136-145) 06/17/21 04:30 Potassium 3.1 mmol/L (3.5-5.1) L 06/17/21 04:30 Chloride 109 mmol/L (98-107) H 06/17/21 04:30 Carbon Dioxide 16.1 mmol/L (21-32) L 06/17/21 04:30 BUN 13 mg/dL (7-18) 06/17/21 04:30 Creatinine 1.03 mg/dL (0.55-1.02) H 06/17/21 04:30 Est GFR (MDRD) Af Amer > 60 (>60) 06/17/21 04:30 Est GFR (MDRD) Non-Af 55 (>60) L 06/17/21 04:30 Glucose 125 mg/dL (65-99) H 06/17/21 04:30 Lactic Acid 1.1 mmol/L (0.4-2.0) 06/10/21 11:16 Calcium 7.4 mg/dL (8.5-10.1) L 06/17/21 04:30 Corrected Calcium 8.9 mg/dL (8.5-10.1) 06/17/21 04:30 Magnesium 2.2 mg/dL (1.7-2.9) 06/17/21 04:30 Iron 65 ug/dL (50-175) 06/16/21 05:17 Transferrin 62 mg/dL (202-364) L 06/16/21 05:17 Ferritin 230 ng/mL (8-252) 06/16/21 05:17 Total Bilirubin 0.30 mg/dL (0.2-1.0) 06/17/21 04:30 AST 7 Units/L (15-37) L 06/17/21 04:30 ALT < 6 Units/L (12-78) L 06/17/21 04:30 Alkaline Phosphatase 55 Units/L (46-116) 06/17/21 04:30 Creatine Kinase 238 Units/L (26-192) H 06/10/21 11:16 CK-MB (CK-2) 7.3 ng/mL (0-4.0) H* 06/10/21 11:16 CK/CKMB % Calc 3.1 % (<4) 06/10/21 11:16 Troponin I High Sens 7.4 ng/L (4.0-60.0) 06/10/21 11:16 Total Protein 4.1 g/dL (6.4-8.2) L 06/17/21 04:30 Albumin 2.1 g/dL (3.4-5.0) L 06/17/21 04:30 Globulin 2.0 g/dL (2.5-4.5) L 06/17/21 04:30 Albumin/Globulin Ratio 1.1 Ratio (1.1-2.1) 06/17/21 04:30 Vitamin B12 300 pg/mL (193-986) 06/16/21 05:17 Folate 18.1 ng/mL (>8.6) 06/16/21 05:17 TSH 3rd Generation 4.075 uIU/mL (0.358-3.74) H 06/10/21 11:16 Specimen Type Catherized urine 06/10/21 11:34 Urine Color Green (YELLOW) 06/10/21 11:34 Urine Appearance Turbid (CLEAR) 06/10/21 11:34 Urine pH 8.0 (5.0 - 8.0) 06/10/21 11:34 Ur Specific [place] 1.015 (1.000-1.030) 06/10/21 11:34 Urine Protein 4+ (NEGATIVE) 06/10/21 11:34 Urine Glucose (UA) Negative (NEGATIVE) 06/10/21 11:34 Urine Ketones 1+ (NEGATIVE) 06/10/21 11:34 Urine Blood 4+ (NEGATIVE) 06/10/21 11:34 Urine Nitrite Negative (NEGATIVE) 06/10/21 11:34 Urine Bilirubin Negative (NEGATIVE) 06/10/21 11:34 Urine Urobilinogen 1+ (NORMAL) 06/10/21 11:34 Ur Leukocyte Esterase 3+ (NEGATIVE) 06/10/21 11:34 Urine RBC 5-10 /HPF (0-3) A 06/10/21 11:34 Urine WBC Tntc /HPF (0-5) A 06/10/21 11:34 Ur Squamous Epith Cells Rare /HPF (NEGATIVE) 06/10/21 11:34 Urine Bacteria 1+ /HPF (NEGATIVE) 06/10/21 11:34 Ur Culture Indicated? Yes/culture set up 06/10/21 11:34 Stool Description 5 unformed brown 06/17/21 05:45 Stl Occult Blood (IFOB) Negative (NEGATIVE) 06/17/21 05:45 Vancomycin Trough 17.8 ug/mL (15-20) 06/15/21 08:52 SARS CoV-2 RNA Rapid NEVAEH Negative (NEGATIVE) 06/10/21 11:19 Tissue Pathology To follow 06/11/21 15:20 Blood Type A POSITIVE 06/13/21 06:41 Antibody Screen Negative 06/13/21 06:41 Crossmatch See Detail 06/13/21 06:41 Plan (1) Sepsis: Status: Acute Qualifiers: Acute renal failure type: unspecified Sepsis acute organ dysfunction status: with acute organ dysfunction Sepsis type: sepsis due to unspecified organism Severe sepsis acute organ dysfunction type: acute renal failure Severe sepsis shock status: with septic shock Qualified Code(s): A41.9 - Sepsis, unspecified organism; R65.21 - Severe sepsis with septic shock; N17.9 - Acute kidney failure, unspecified Plan: IVF, IV antibiotics, continue dopamine gtt (2) Acute hyponatremia: Status: Acute (3) Acute UTI: Status: Acute (4) Acute hypotension: Status: Acute (5) Hyponatremia: Status: Acute (6) Acute renal failure: Status: Acute (7) Decubitus ulcer of sacral region, stage 4: Status: Acute Plan: Consult general surgery
[2021-06-17] MEDS: ZOSYN VIAL 3.375 GRAMS 3.375 G in NS 100 ML IV 100 ML IV SCH ×2 (09:51→22:50)
[2021-06-17] MEDS ORDERED: LEXAPRO ONE (10:13)
[2021-06-17] MEDS: NAMENDA TAB 10 MG PO SCH ×2 (10:14→21:05)
[2021-06-17] MEDS: SYNTHROID 50 mcg TAB PO SCH (10:16)
[2021-06-17] MEDS: LEXAPRO PO SCH (10:18)
[2021-06-17] MEDS: HEMOCYTE-PLUS PO SCH ×2 (10:19→21:05)
[2021-06-17] MEDS: THIAMINE HCL INJ IVP SCH ×2 (10:20→20:40)
[2021-06-17] MEDS: SOLU-Cortef INJ IVP SCH ×4 (10:20→20:35)
[2021-06-17] MEDS: PROTONIX INJ 40 MG VIAL IVP SCH ×2 (10:20→20:40)
[2021-06-17] MEDS: COLACE CAP 100 MG PO SCH ×2 (10:21→21:05)
[2021-06-17] MEDS: TYLENOL 325 MG TAB PO PRN (10:58)
[2021-06-17] MEDS: VANCOMYCIN IV *PREMIX 1 G/200 ML BAG 1 G/200 ML PIGGYBACK IV SCH (11:00)
--- NOTE | 2021-06-17 16:17 | DR.PROGNOT ---
Hospital Progress Notes - Progress Note for Day of: Progress Note Date: 06/17/21 - Chief Complaint Chief Complaint: no new c/o . fair appetite .. dressing was changed . still with large sacral ulcer . afebrile - Past Medical Family Social History Past Med/Fam/Surg Hx: No changes since H&P Allergies: Allergies No Known Drug Allergies Allergy (Verified 06/10/21 10:44) - Review Of Systems ROS: No change since H&P - Vital Signs Vital Signs: Temperature 97.6 F Pulse Rate [Left Radial] 99 Pulse Rate 74 Respiratory Rate 14 Blood Pressure [Right Arm] 104/56 Blood Pressure 93/54 O2 Sat by Pulse Oximetry 99 - Physical Exam Oriented: Normal Eyes: Normal Ear: Normal Nose: Normal Throat: Normal Respiratory: Normal Cardiovascular: Normal : Normal GI:Auscultation: Normal GI:Palpation: Normal GI: Tenderness: Normal Skin: Wound (wound vac sacrum) Musculoskeletal: Instability Psychiatric: Normal Mood Description: Calm, Appropriate Affect: Normal Speech Pattern: Clear, Appropriate - Laboratory and Diagnostics Result Diagrams: 06/17/21 04:30 06/17/21 04:30 Labs: 06/10/21 11:20 Blood Blood Culture - Final 06/11/21 15:20 Sacral Wound Gram Stain - Final 06/11/21 15:20 Sacral Wound Culture - Final Enterococcus Faecalis 06/10/21 11:16 Blood Blood Culture - Final 06/10/21 11:34 Urine,Catheterized Urine Culture - Final Klebsiella Pneumoniae Laboratory WBC 15.6 X10^3/uL (3.6-10.0) H 06/17/21 04:30 RBC 2.82 X10^6/uL (3.5-5.4) L 06/17/21 04:30 Hgb 8.1 g/dL (12.0-16.0) L 06/17/21 04:30 Hct 25.2 % (36.0-47.0) L 06/17/21 04:30 MCV 89.3 fL (80.0-100.0) 06/17/21 04:30 MCH 28.8 pg (27.0-34.0) 06/17/21 04:30 MCHC 32.2 g/dL (33.0-35.0) L 06/17/21 04:30 RDW 19.7 % (11.6-16.5) H 06/17/21 04:30 Plt Count 252 X10^3/uL (150.0-450.0) 06/17/21 04:30 Plt Count Comment Adequate (ADEQUATE) 06/14/21 06:44 MPV 7.5 fL (7.4-11.0) 06/17/21 04:30 Neut % (Auto) 89.7 % (42.0-75.0) H 06/17/21 04:30 Lymph % (Auto) 6.5 % (21.0-51.0) L 06/17/21 04:30 [place] % (Auto) 3.3 % (0.0-13.0) 06/17/21 04:30 Eos % (Auto) 0.0 % (0.9-2.9) L 06/17/21 04:30 Baso % (Auto) 0.5 % (0.2-1.0) 06/17/21 04:30 Neut # (Auto) 14.0 x10^3/uL (2.2-4.8) H 06/17/21 04:30 Lymph # (Auto) 1.0 X10^3/uL (1.3-2.9) L 06/17/21 04:30 [place] # (Auto) 0.5 x10^3/uL (0.3-0.8) 06/17/21 04:30 Eos # (Auto) 0.0 x10^3/uL (0.0-0.2) 06/17/21 04:30 Baso # (Auto) 0.1 X10^3/uL (0.0-0.1) 06/17/21 04:30 Absolute Nucleated RBC 0.0 /100WBC 06/17/21 04:30 Total Counted 100 06/14/21 06:44 Neutrophils % (Manual) 88 % (39-76) H 06/14/21 06:44 Band Neutrophils % 2 % (0-10) 06/14/21 06:44 Lymphocytes % (Manual) 6 % (13-43) L 06/14/21 06:44 Monocytes % (Manual) 4 % (4-9) 06/14/21 06:44 Eosinophils % (Manual) 1 % (0-6) 06/11/21 16:51 Metamyelocytes % 1 06/11/21 04:20 Plt Morphology Comment Normal (NORMAL) 06/14/21 06:44 RBC Morphology Abnormal (NORMAL) A 06/14/21 06:44 Anisocytosis Slight A 06/14/21 06:44 Sodium 137 mmol/L (136-145) 06/17/21 04:30 Corrected Sodium 138 mmol/L (136-145) 06/17/21 04:30 Potassium 3.1 mmol/L (3.5-5.1) L 06/17/21 04:30 Chloride 109 mmol/L (98-107) H 06/17/21 04:30 Carbon Dioxide 16.1 mmol/L (21-32) L 06/17/21 04:30 BUN 13 mg/dL (7-18) 06/17/21 04:30 Creatinine 1.03 mg/dL (0.55-1.02) H 06/17/21 04:30 Est GFR (MDRD) Af Amer > 60 (>60) 06/17/21 04:30 Est GFR (MDRD) Non-Af 55 (>60) L 06/17/21 04:30 Glucose 125 mg/dL (65-99) H 06/17/21 04:30 Lactic Acid 1.1 mmol/L (0.4-2.0) 06/10/21 11:16 Calcium 7.4 mg/dL (8.5-10.1) L 06/17/21 04:30 Corrected Calcium 8.9 mg/dL (8.5-10.1) 06/17/21 04:30 Magnesium 2.2 mg/dL (1.7-2.9) 06/17/21 04:30 Iron 65 ug/dL (50-175) 06/16/21 05:17 Transferrin 62 mg/dL (202-364) L 06/16/21 05:17 Ferritin 230 ng/mL (8-252) 06/16/21 05:17 Total Bilirubin 0.30 mg/dL (0.2-1.0) 06/17/21 04:30 AST 7 Units/L (15-37) L 06/17/21 04:30 ALT < 6 Units/L (12-78) L 06/17/21 04:30 Alkaline Phosphatase 55 Units/L (46-116) 06/17/21 04:30 Creatine Kinase 238 Units/L (26-192) H 06/10/21 11:16 CK-MB (CK-2) 7.3 ng/mL (0-4.0) H* 06/10/21 11:16 CK/CKMB % Calc 3.1 % (<4) 06/10/21 11:16 Troponin I High Sens 7.4 ng/L (4.0-60.0) 06/10/21 11:16 Total Protein 4.1 g/dL (6.4-8.2) L 06/17/21 04:30 Albumin 2.1 g/dL (3.4-5.0) L 06/17/21 04:30 Globulin 2.0 g/dL (2.5-4.5) L 06/17/21 04:30 Albumin/Globulin Ratio 1.1 Ratio (1.1-2.1) 06/17/21 04:30 Vitamin B12 300 pg/mL (193-986) 06/16/21 05:17 Folate 18.1 ng/mL (>8.6) 06/16/21 05:17 TSH 3rd Generation 4.075 uIU/mL (0.358-3.74) H 06/10/21 11:16 Specimen Type Catherized urine 06/10/21 11:34 Urine Color Green (YELLOW) 06/10/21 11:34 Urine Appearance Turbid (CLEAR) 06/10/21 11:34 Urine pH 8.0 (5.0 - 8.0) 06/10/21 11:34 Ur Specific [place] 1.015 (1.000-1.030) 06/10/21 11:34 Urine Protein 4+ (NEGATIVE) 06/10/21 11:34 Urine Glucose (UA) Negative (NEGATIVE) 06/10/21 11:34 Urine Ketones 1+ (NEGATIVE) 06/10/21 11:34 Urine Blood 4+ (NEGATIVE) 06/10/21 11:34 Urine Nitrite Negative (NEGATIVE) 06/10/21 11:34 Urine Bilirubin Negative (NEGATIVE) 06/10/21 11:34 Urine Urobilinogen 1+ (NORMAL) 06/10/21 11:34 Ur Leukocyte Esterase 3+ (NEGATIVE) 06/10/21 11:34 Urine RBC 5-10 /HPF (0-3) A 06/10/21 11:34 Urine WBC Tntc /HPF (0-5) A 06/10/21 11:34 Ur Squamous Epith Cells Rare /HPF (NEGATIVE) 06/10/21 11:34 Urine Bacteria 1+ /HPF (NEGATIVE) 06/10/21 11:34 Ur Culture Indicated? Yes/culture set up 06/10/21 11:34 Stool Description 5 unformed brown 06/17/21 05:45 Stl Occult Blood (IFOB) Negative (NEGATIVE) 06/17/21 05:45 Vancomycin Trough 17.8 ug/mL (15-20) 06/15/21 08:52 SARS CoV-2 RNA Rapid NEVAEH Negative (NEGATIVE) 06/10/21 11:19 Tissue Pathology To follow 06/11/21 15:20 Blood Type A POSITIVE 06/13/21 06:41 Antibody Screen Negative 06/13/21 06:41 Crossmatch See Detail 06/13/21 06:41 - Assessment and Plan 1: large infected sacral and hip ulcer stage 4 with exposd bone .. same local care with packing .. nutritional support and IV ABT . wound Vac was applied today .. - Problem Patient Problems: Patient Problems Sepsis (Acute) A41.9 Acute hyponatremia (Acute) E87.1 Azotemia (Acute) R79.89 Acute UTI (Acute) N39.0 Decubitus ulcer of sacral region, stage 4 (Acute) L89.154
[2021-06-17] MEDS ORDERED: NYSTATIN POWDER ONE (18:02)
[2021-06-17] MEDS: NYSTATIN POWDER TOP SCH ×2 (18:05→22:00)
[2021-06-18] MEDS: ASCORBIC ACID INJ MULTI-DOSE VIAL 1,500 MG in NS 50 ML IV 50 ML IV SCH ×4 (04:31→20:17)
[2021-06-18] MEDS: NS 1,000 ML IV 1,000 ML IV SCH ×4 (05:33→13:36)
[2021-06-18] MEDS: FLAGYL IV PREMIX 500 MG BAG 500 MG/100 ML BAG IV SCH ×3 (05:33→21:12)
[2021-06-18] MEDS: SINEMET (PLAIN) 10/100 MG PO SCH ×3 (05:34→21:12)
[2021-06-18 06:27] LABS: BASOPHILS % (AUTO) 0.1 % (0.2-1.0); HEMATOCRIT 22.9 % (36.0-47.0); HEMOGLOBIN 7.7 g/dL (12.0-16.0); LYMPHOCYTES # (AUTO) 1.1 X10^3/uL (1.3-2.9); LYMPHOCYTES % (AUTO) 6.1 % (21.0-51.0); MEAN CORPUSCULAR HEMOGLOBIN 29.9 pg (27.0-34.0); MEAN CORPUSCULAR HGB CONC 33.5 g/dL (33.0-35.0); MEAN CORPUSCULAR VOLUME 89.1 fL (80.0-100.0); MEAN PLATELET VOLUME 7.4 fL (7.4-11.0); MONOCYTES # (AUTO) 0.6 x10^3/uL (0.3-0.8); MONOCYTES % (AUTO) 3.7 % (0.0-13.0); NEUTROPHILS # (AUTO) 15.7 x10^3/uL (2.2-4.8); NEUTROPHILS % (AUTO) 90.1 % (42.0-75.0); RED BLOOD COUNT 2.57 X10^6/uL (3.5-5.4); RED CELL DISTRIBUTION WIDTH 20.1 % (11.6-16.5); WHITE BLOOD COUNT 17.4 X10^3/uL (3.6-10.0)
[2021-06-18 07:01] LABS: ANISOCYTOSIS 1+; PLATELET MORPHOLOGY COMMENT NORMAL (NORMAL)
[2021-06-18 07:10] LABS: ALANINE AMINOTRANSFERASE 6 Units/L (12-78); ALBUMIN 2.4 g/dL (3.4-5.0); ALKALINE PHOSPHATASE 45 Units/L (46-116); ASPARTATE AMINO TRANSFERASE 11 Units/L (15-37); BLOOD UREA NITROGEN 13 mg/dL (7-18); CARBON DIOXIDE 16.3 mmol/L (21-32); COR CA(FOR HYPOALB) 9.3 mg/dL (8.5-10.1); CREATININE 0.97 mg/dL (0.55-1.02); SODIUM 144 mmol/L (136-145); TOTAL PROTEIN 4.1 g/dL (6.4-8.2); eGFR NON BLACK RACES 59 (>60)
[2021-06-18 07:20] LABS: CHLORIDE 116 mmol/L (98-107)
[2021-06-18 09:18] LABS: CREATININE 0.99 mg/dL (0.55-1.02)
[2021-06-18 09:24] LABS: VANCOMYCIN,TROUGH 22.5 ug/mL (15-20)
[2021-06-18] MEDS: VANCOMYCIN IV *PREMIX 1 G/200 ML BAG 1 G/200 ML PIGGYBACK IV SCH (09:29)
[2021-06-18] MEDS ORDERED: LEXAPRO ONE (09:41)
[2021-06-18] MEDS: ALBUMIN HUMAN 25%- 100 ML 100 ML IV SCH (09:49)
[2021-06-18] MEDS: COLACE CAP 100 MG PO SCH ×2 (09:49→20:17)
[2021-06-18] MEDS: NAMENDA TAB 10 MG PO SCH ×2 (09:50→20:19)
[2021-06-18] MEDS: HEMOCYTE-PLUS PO SCH ×2 (09:50→20:18)
[2021-06-18] MEDS: LEXAPRO PO SCH (09:50)
[2021-06-18] MEDS: THIAMINE HCL INJ IVP SCH ×2 (09:51→20:22)
[2021-06-18] MEDS: NYSTATIN POWDER TOP SCH ×2 (09:51→20:19)
[2021-06-18] MEDS: PROTONIX INJ 40 MG VIAL IVP SCH ×2 (09:51→20:21)
[2021-06-18] MEDS: ZOSYN VIAL 3.375 GRAMS 3.375 G in NS 100 ML IV 100 ML IV SCH ×2 (09:51→20:24)
[2021-06-18] MEDS: SYNTHROID 50 mcg TAB PO SCH (09:51)
[2021-06-18] MEDS: SOLU-Cortef INJ IVP SCH ×2 (09:51→13:35)
--- NOTE | 2021-06-18 13:12 | PCM.PROG ---
Progress Note Progress Note for Day of Date of Exam: 06/18/21 Subjective Subjective: Pt is a 80 year old female past medical history of Hypertension, COPD, OA, admitted for Sepsis, Decubitus sacral ulcer, UTI, Hyponatremia, and Acute renal failure. She is post debridement of stage 4 sacral ulcer. Pt has received a total of 2 units packed red blood cells. She has wound vac in place as well as arterial line. This morning she reports feeling better. Labs/imaging: Wbc 17.4, Hgb 7.7, Plt 206, Na 144, K 3.4, Creatinine 0.99, Glucose 93, Urine culture positive for Klebsiella pneu., Blood culture negative, Wound culture see report. Stool occult negative, and anemia panel appropriate. Pt is currently receiving: IVF NS@100ml/h. She was able to be weaned off vasopressor support Dopamine. Will change IVF to KVO and give 1 unit packed red blood cells for anemia. Will discontinue hydrocortisone and order nutrition consult. Continue antibiotics: IV Vancomycin, IV Zosyn, and IV Flagyl. Treatments also include: IV Albumin, thiamine, IV Vitamin C, IV protonix 40mg BID. Replete potassium per protocol. Continue to monitor closely and follow up labs in the morning. Time spent on clinical assessment, reviewing labs and imaging, decision making, and documentation greater than 45 minutes. Past Medical Family Social History Past Med/Fam/Surg Hx: No changes since H&P Allergies: Allergies No Known Drug Allergies Allergy (Verified 06/10/21 10:44) Review of Systems ROS: No change since H&P Vital Signs and I&O's Vital Signs: Temperature 98.0 F Pulse Rate [Left Radial] 99 Pulse Rate 88 Respiratory Rate 16 Blood Pressure [Right Arm] 104/56 Blood Pressure 102/55 O2 Sat by Pulse Oximetry 99 Intake and Output: Intake & Output 06/15/21 06/16/21 06/17/21 06/18/21 23:59 23:59 23:59 23:59 Intake Total 4067 / 4067 5314 / 5314 3583 / 3583 435 / 435 Output Total 850 / 850 1950 / 1950 875 / 875 200 / 200 Balance 3217 / 3217 3364 / 3364 2708 / 2708 235 / 235 Physical Exam Oriented: Normal Eyes: Normal Ear: Normal Nose: Normal Throat: Normal Respiratory: Normal Cardiovascular: Normal : Normal Auscultation: Bowel Sounds: Normal Tenderness: Normal Skin: Wound (wound vac sacrum) Musculoskeletal: Instability Psychiatric: Normal Mood Description: Calm and Appropriate Affect: Normal Speech Pattern: Clear and Appropriate Laboratory and Diagnostics Result Diagrams: 06/18/21 05:35 06/18/21 08:20 Labs: 06/10/21 11:20 Blood Blood Culture - Final 06/11/21 15:20 Sacral Wound Gram Stain - Final 06/11/21 15:20 Sacral Wound Culture - Final Enterococcus Faecalis 06/10/21 11:16 Blood Blood Culture - Final 06/10/21 11:34 Urine,Catheterized Urine Culture - Final Klebsiella Pneumoniae Laboratory WBC 17.4 X10^3/uL (3.6-10.0) H 06/18/21 05:35 RBC 2.57 X10^6/uL (3.5-5.4) L 06/18/21 05:35 Hgb 7.7 g/dL (12.0-16.0) L 06/18/21 05:35 Hct 22.9 % (36.0-47.0) L 06/18/21 05:35 MCV 89.1 fL (80.0-100.0) 06/18/21 05:35 MCH 29.9 pg (27.0-34.0) 06/18/21 05:35 MCHC 33.5 g/dL (33.0-35.0) 06/18/21 05:35 RDW 20.1 % (11.6-16.5) H 06/18/21 05:35 Plt Count 206 X10^3/uL (150.0-450.0) 06/18/21 05:35 Plt Count Comment Adequate (ADEQUATE) 06/18/21 05:35 MPV 7.4 fL (7.4-11.0) 06/18/21 05:35 Neut % (Auto) 90.1 % (42.0-75.0) H 06/18/21 05:35 Lymph % (Auto) 6.1 % (21.0-51.0) L 06/18/21 05:35 [place] % (Auto) 3.7 % (0.0-13.0) 06/18/21 05:35 Eos % (Auto) 0.0 % (0.9-2.9) L 06/18/21 05:35 Baso % (Auto) 0.1 % (0.2-1.0) L 06/18/21 05:35 Neut # (Auto) 15.7 x10^3/uL (2.2-4.8) H 06/18/21 05:35 Lymph # (Auto) 1.1 X10^3/uL (1.3-2.9) L 06/18/21 05:35 [place] # (Auto) 0.6 x10^3/uL (0.3-0.8) 06/18/21 05:35 Eos # (Auto) 0.0 x10^3/uL (0.0-0.2) 06/18/21 05:35 Baso # (Auto) 0.0 X10^3/uL (0.0-0.1) 06/18/21 05:35 Absolute Nucleated RBC 0.0 /100WBC 06/18/21 05:35 Total Counted 100 06/18/21 05:35 Neutrophils % (Manual) 92 % (39-76) H 06/18/21 05:35 Band Neutrophils % 2 % (0-10) 06/14/21 06:44 Lymphocytes % (Manual) 8 % (13-43) L 06/18/21 05:35 Monocytes % (Manual) 4 % (4-9) 06/14/21 06:44 Eosinophils % (Manual) 1 % (0-6) 06/11/21 16:51 Metamyelocytes % 1 06/11/21 04:20 Plt Morphology Comment Normal (NORMAL) 06/18/21 05:35 RBC Morphology Abnormal (NORMAL) A 06/18/21 05:35 Anisocytosis 1+ A 06/18/21 05:35 Sodium 144 mmol/L (136-145) 06/18/21 05:35 Corrected Sodium TNP 06/18/21 05:35 Potassium 3.4 mmol/L (3.5-5.1) L 06/18/21 05:35 Chloride 116 mmol/L (98-107) H* 06/18/21 05:35 Carbon Dioxide 16.3 mmol/L (21-32) L 06/18/21 05:35 BUN 13 mg/dL (7-18) 06/18/21 05:35 Creatinine 0.99 mg/dL (0.55-1.02) 06/18/21 08:20 Est GFR (MDRD) Af Amer > 60 (>60) 06/18/21 05:35 Est GFR (MDRD) Non-Af 59 (>60) 06/18/21 05:35 Glucose 93 mg/dL (65-99) 06/18/21 05:35 Lactic Acid 1.1 mmol/L (0.4-2.0) 06/10/21 11:16 Calcium 8.0 mg/dL (8.5-10.1) L 06/18/21 05:35 Corrected Calcium 9.3 mg/dL (8.5-10.1) 06/18/21 05:35 Magnesium 2.2 mg/dL (1.7-2.9) 06/17/21 04:30 Iron 65 ug/dL (50-175) 06/16/21 05:17 Transferrin 62 mg/dL (202-364) L 06/16/21 05:17 Ferritin 230 ng/mL (8-252) 06/16/21 05:17 Total Bilirubin 0.30 mg/dL (0.2-1.0) 06/18/21 05:35 AST 11 Units/L (15-37) L 06/18/21 05:35 ALT 6 Units/L (12-78) L 06/18/21 05:35 Alkaline Phosphatase 45 Units/L (46-116) L 06/18/21 05:35 Creatine Kinase 238 Units/L (26-192) H 06/10/21 11:16 CK-MB (CK-2) 7.3 ng/mL (0-4.0) H* 06/10/21 11:16 CK/CKMB % Calc 3.1 % (<4) 06/10/21 11:16 Troponin I High Sens 7.4 ng/L (4.0-60.0) 06/10/21 11:16 Total Protein 4.1 g/dL (6.4-8.2) L 06/18/21 05:35 Albumin 2.4 g/dL (3.4-5.0) L 06/18/21 05:35 Globulin 1.7 g/dL (2.5-4.5) L 06/18/21 05:35 Albumin/Globulin Ratio 1.4 Ratio (1.1-2.1) 06/18/21 05:35 Vitamin B12 300 pg/mL (193-986) 06/16/21 05:17 Folate 18.1 ng/mL (>8.6) 06/16/21 05:17 TSH 3rd Generation 4.075 uIU/mL (0.358-3.74) H 06/10/21 11:16 Specimen Type Catherized urine 06/10/21 11:34 Urine Color Green (YELLOW) 06/10/21 11:34 Urine Appearance Turbid (CLEAR) 06/10/21 11:34 Urine pH 8.0 (5.0 - 8.0) 06/10/21 11:34 Ur Specific [place] 1.015 (1.000-1.030) 06/10/21 11:34 Urine Protein 4+ (NEGATIVE) 06/10/21 11:34 Urine Glucose (UA) Negative (NEGATIVE) 06/10/21 11:34 Urine Ketones 1+ (NEGATIVE) 06/10/21 11:34 Urine Blood 4+ (NEGATIVE) 06/10/21 11:34 Urine Nitrite Negative (NEGATIVE) 06/10/21 11:34 Urine Bilirubin Negative (NEGATIVE) 06/10/21 11:34 Urine Urobilinogen 1+ (NORMAL) 06/10/21 11:34 Ur Leukocyte Esterase 3+ (NEGATIVE) 06/10/21 11:34 Urine RBC 5-10 /HPF (0-3) A 06/10/21 11:34 Urine WBC Tntc /HPF (0-5) A 06/10/21 11:34 Ur Squamous Epith Cells Rare /HPF (NEGATIVE) 06/10/21 11:34 Urine Bacteria 1+ /HPF (NEGATIVE) 06/10/21 11:34 Ur Culture Indicated? Yes/culture set up 06/10/21 11:34 Stool Description 5 unformed brown 06/17/21 05:45 Stl Occult Blood (IFOB) Negative (NEGATIVE) 06/17/21 05:45 Vancomycin Trough 22.5 ug/mL (15-20) H* 06/18/21 08:20 SARS CoV-2 RNA Rapid NEVAEH Negative (NEGATIVE) 06/10/21 11:19 Tissue Pathology To follow 06/11/21 15:20 Blood Type A POSITIVE 06/18/21 08:25 Antibody Screen Negative 06/18/21 08:25 Crossmatch See Detail 06/18/21 08:25 Plan (1) Sepsis: Status: Acute Qualifiers: Acute renal failure type: unspecified Sepsis acute organ dysfunction status: with acute organ dysfunction Sepsis type: sepsis due to unspecified organism Severe sepsis acute organ dysfunction type: acute renal failure Severe sepsis shock status: with septic shock Qualified Code(s): A41.9 - Sep sis, unspecified organism; R65.21 - Severe sepsis with septic shock; N17.9 - Acute kidney failure, unspecified Plan: IVF, IV antibiotics, continue dopamine gtt (2) Acute hyponatremia: Status: Acute (3) Acute UTI: Status: Acute (4) Acute hypotension: Status: Acute (5) Hyponatremia: Status: Acute (6) Acute renal failure: Status: Acute (7) Decubitus ulcer of sacral region, stage 4: Status: Acute Plan: Consult general surgery
[2021-06-18] MEDS: TYLENOL #3 TAB (W/CODEINE) PO PRN (15:50)
[2021-06-18 19:44] LABS: HEMATOCRIT 26.1 % (36.0-47.0); HEMOGLOBIN 8.7 g/dL (12.0-16.0)
[2021-06-18] MEDS: K-DUR TAB 20 MEQ PO PRN (20:25)
[2021-06-19] MEDS: ASCORBIC ACID INJ MULTI-DOSE VIAL 1,500 MG in NS 50 ML IV 50 ML IV SCH ×4 (04:15→20:24)
[2021-06-19] MEDS: FLAGYL IV PREMIX 500 MG BAG 500 MG/100 ML BAG IV SCH ×3 (05:33→21:08)
[2021-06-19] MEDS: SINEMET (PLAIN) 10/100 MG PO SCH ×3 (05:34→21:08)
[2021-06-19] MEDS ORDERED: LEXAPRO ONE (06:29)
[2021-06-19 06:46] LABS: BASOPHILS # (AUTO) 0.1 X10^3/uL (0.0-0.1); BASOPHILS % (AUTO) 0.4 % (0.2-1.0); EOSINOPHILS % (AUTO) 0.2 % (0.9-2.9); HEMATOCRIT 27.7 % (36.0-47.0); HEMOGLOBIN 9.5 g/dL (12.0-16.0); LYMPHOCYTES # (AUTO) 1.8 X10^3/uL (1.3-2.9); LYMPHOCYTES % (AUTO) 11.5 % (21.0-51.0); MEAN CORPUSCULAR HEMOGLOBIN 30.7 pg (27.0-34.0); MEAN CORPUSCULAR HGB CONC 34.1 g/dL (33.0-35.0); MEAN CORPUSCULAR VOLUME 90.1 fL (80.0-100.0); MEAN PLATELET VOLUME 7.6 fL (7.4-11.0); MONOCYTES # (AUTO) 0.1 x10^3/uL (0.3-0.8); MONOCYTES % (AUTO) 0.4 % (0.0-13.0); NEUTROPHILS # (AUTO) 13.9 x10^3/uL (2.2-4.8); NEUTROPHILS % (AUTO) 87.5 % (42.0-75.0); RED BLOOD COUNT 3.08 X10^6/uL (3.5-5.4); RED CELL DISTRIBUTION WIDTH 19.5 % (11.6-16.5); WHITE BLOOD COUNT 15.8 X10^3/uL (3.6-10.0)
[2021-06-19 07:18] LABS: CREATININE 0.87 mg/dL (0.55-1.02); VANCOMYCIN,TROUGH 17.2 ug/mL (15-20)
[2021-06-19 07:20] LABS: ANISOCYTOSIS SLIGHT; PLATELET MORPHOLOGY COMMENT NORMAL (NORMAL)
[2021-06-19 07:32] LABS: ALANINE AMINOTRANSFERASE 9 Units/L (12-78); ALBUMIN 2.6 g/dL (3.4-5.0); ALKALINE PHOSPHATASE 45 Units/L (46-116); ASPARTATE AMINO TRANSFERASE 12 Units/L (15-37); BLOOD UREA NITROGEN 13 mg/dL (7-18); CARBON DIOXIDE 16.5 mmol/L (21-32); COR CA(FOR HYPOALB) 9.1 mg/dL (8.5-10.1); SODIUM 146 mmol/L (136-145); TOTAL PROTEIN 4.4 g/dL (6.4-8.2); eGFR NON BLACK RACES 57 (>60)
[2021-06-19 07:34] LABS: CHLORIDE 117 mmol/L (98-107)
--- NOTE | 2021-06-19 08:11 | PCM.PROG ---
Progress Note Progress Note for Day of Date of Exam: 06/19/21 Subjective Subjective: Pt is a 80 year old female past medical history of Hypertension, COPD, OA, admitted for Sepsis, Decubitus sacral ulcer, UTI, Hyponatremia, and Acute renal failure. She is post debridement of stage 4 sacral ulcer. Pt has received a total of 3 units packed red blood cells. She has wound vac in place as well as arterial line. This morning she is resting comfortably, no acute events overnight. Labs/imaging: Wbc 15.8, Hgb 9.5, Plt 151, Na 146, K 3.3, Creatinine 1.00, Glucose 78, Urine culture positive for Klebsiella pneu., Blood culture negative, Wound culture see report. Stool occult negative, and anemia panel appropriate. Pt is currently receiving: IVF NS@KVO. She was able to be weaned off vasopressor support Dopamine. Nutrition consulted, follow recommendations. Will discontinue thiamine, IV Vancomycin, and change protonix to 40mg daily. Continue antibiotics: IV Zosyn, and IV Flagyl. Treatments also include: IV Albumin, IV Vitamin C. Replete potassium per protocol. Continue to monitor closely and follow up labs in the morning. Case management arranging for SNF placement. Past Medical Family Social History Past Med/Fam/Surg Hx: No changes since H&P Allergies: Allergies No Known Drug Allergies Allergy (Verified 06/10/21 10:44) Review of Systems ROS: No change since H&P Vital Signs and I&O's Vital Signs: Temperature 97.7 F Pulse Rate [Left Radial] 99 Pulse Rate 65 Respiratory Rate 13 Blood Pressure [Right Arm] 104/56 Blood Pressure 116/62 O2 Sat by Pulse Oximetry 99 Intake and Output: Intake & Output 06/16/21 06/17/21 06/18/21 06/19/21 23:59 23:59 23:59 23:59 Intake Total 5314 / 5314 3583 / 3583 1737 / 1737 192 / 192 Output Total 1950 / 1950 875 / 875 700 / 700 150 / 150 Balance 3364 / 3364 2708 / 2708 1037 / 1037 42 / 42 Physical Exam Oriented: Normal Eyes: Normal Ear: Normal Nose: Normal Throat: Normal Respiratory: Normal Cardiovascular: Normal : Normal Auscultation: Bowel Sounds: Normal Tenderness: Normal Skin: Wound (wound vac sacrum) Musculoskeletal: Instability Psychiatric: Normal Mood Description: Calm and Appropriate Affect: Normal Speech Pattern: Clear and Appropriate Laboratory and Diagnostics Result Diagrams: 06/19/21 06:20 06/19/21 06:20 Labs: 06/10/21 11:20 Blood Blood Culture - Final 06/11/21 15:20 Sacral Wound Gram Stain - Final 06/11/21 15:20 Sacral Wound Culture - Final Enterococcus Faecalis 06/10/21 11:16 Blood Blood Culture - Final 06/10/21 11:34 Urine,Catheterized Urine Culture - Final Klebsiella Pneumoniae Laboratory WBC 15.8 X10^3/uL (3.6-10.0) H 06/19/21 06:20 RBC 3.08 X10^6/uL (3.5-5.4) L 06/19/21 06:20 Hgb 9.5 g/dL (12.0-16.0) L 06/19/21 06:20 Hct 27.7 % (36.0-47.0) L 06/19/21 06:20 MCV 90.1 fL (80.0-100.0) 06/19/21 06:20 MCH 30.7 pg (27.0-34.0) 06/19/21 06:20 MCHC 34.1 g/dL (33.0-35.0) 06/19/21 06:20 RDW 19.5 % (11.6-16.5) H 06/19/21 06:20 Plt Count 151 X10^3/uL (150.0-450.0) 06/19/21 06:20 Plt Count Comment Adequate (ADEQUATE) 06/19/21 06:20 MPV 7.6 fL (7.4-11.0) 06/19/21 06:20 Neut % (Auto) 87.5 % (42.0-75.0) H 06/19/21 06:20 Lymph % (Auto) 11.5 % (21.0-51.0) L 06/19/21 06:20 [place] % (Auto) 0.4 % (0.0-13.0) 06/19/21 06:20 Eos % (Auto) 0.2 % (0.9-2.9) L 06/19/21 06:20 Baso % (Auto) 0.4 % (0.2-1.0) 06/19/21 06:20 Neut # (Auto) 13.9 x10^3/uL (2.2-4.8) H 06/19/21 06:20 Lymph # (Auto) 1.8 X10^3/uL (1.3-2.9) 06/19/21 06:20 [place] # (Auto) 0.1 x10^3/uL (0.3-0.8) L 06/19/21 06:20 Eos # (Auto) 0.0 x10^3/uL (0.0-0.2) 06/19/21 06:20 Baso # (Auto) 0.1 X10^3/uL (0.0-0.1) 06/19/21 06:20 Absolute Nucleated RBC 0.4 /100WBC 06/19/21 06:20 Total Counted 100 06/19/21 06:20 Neutrophils % (Manual) 82 % (39-76) H 06/19/21 06:20 Band Neutrophils % 2 % (0-10) 06/14/21 06:44 Lymphocytes % (Manual) 17 % (13-43) 06/19/21 06:20 Monocytes % (Manual) 1 % (4-9) L 06/19/21 06:20 Eosinophils % (Manual) 1 % (0-6) 06/11/21 16:51 Metamyelocytes % 1 06/11/21 04:20 Plt Morphology Comment Normal (NORMAL) 06/19/21 06:20 RBC Morphology Abnormal (NORMAL) A 06/19/21 06:20 Anisocytosis Slight A 06/19/21 06:20 Sodium 146 mmol/L (136-145) H 06/19/21 06:20 Corrected Sodium TNP 06/19/21 06:20 Potassium 3.3 mmol/L (3.5-5.1) L 06/19/21 06:20 Chloride 117 mmol/L (98-107) H* 06/19/21 06:20 Carbon Dioxide 16.5 mmol/L (21-32) L 06/19/21 06:20 BUN 13 mg/dL (7-18) 06/19/21 06:20 Creatinine 0.87 mg/dL (0.55-1.02) 06/19/21 06:20 Creatinine 1.00 mg/dL (0.55-1.02) 06/19/21 06:20 Est GFR (MDRD) Af Amer > 60 (>60) 06/19/21 06:20 Est GFR (MDRD) Non-Af 57 (>60) L 06/19/21 06:20 Glucose 78 mg/dL (65-99) 06/19/21 06:20 Lactic Acid 1.1 mmol/L (0.4-2.0) 06/10/21 11:16 Calcium 8.0 mg/dL (8.5-10.1) L 06/19/21 06:20 Corrected Calcium 9.1 mg/dL (8.5-10.1) 06/19/21 06:20 Magnesium 2.2 mg/dL (1.7-2.9) 06/17/21 04:30 Iron 65 ug/dL (50-175) 06/16/21 05:17 Transferrin 62 mg/dL (202-364) L 06/16/21 05:17 Ferritin 230 ng/mL (8-252) 06/16/21 05:17 Total Bilirubin 0.40 mg/dL (0.2-1.0) 06/19/21 06:20 AST 12 Units/L (15-37) L 06/19/21 06:20 ALT 9 Units/L (12-78) L 06/19/21 06:20 Alkaline Phosphatase 45 Units/L (46-116) L 06/19/21 06:20 Creatine Kinase 238 Units/L (26-192) H 06/10/21 11:16 CK-MB (CK-2) 7.3 ng/mL (0-4.0) H* 06/10/21 11:16 CK/CKMB % Calc 3.1 % (<4) 06/10/21 11:16 Troponin I High Sens 7.4 ng/L (4.0-60.0) 06/10/21 11:16 Total Protein 4.4 g/dL (6.4-8.2) L 06/19/21 06:20 Albumin 2.6 g/dL (3.4-5.0) L 06/19/21 06:20 Globulin 1.8 g/dL (2.5-4.5) L 06/19/21 06:20 Albumin/Globulin Ratio 1.4 Ratio (1.1-2.1) 06/19/21 06:20 Vitamin B12 300 pg/mL (193-986) 06/16/21 05:17 Folate 18.1 ng/mL (>8.6) 06/16/21 05:17 TSH 3rd Generation 4.075 uIU/mL (0.358-3.74) H 06/10/21 11:16 Specimen Type Catherized urine 06/10/21 11:34 Urine Color Green (YELLOW) 06/10/21 11:34 Urine Appearance Turbid (CLEAR) 06/10/21 11:34 Urine pH 8.0 (5.0 - 8.0) 06/10/21 11:34 Ur Specific [place] 1.015 (1.000-1.030) 06/10/21 11:34 Urine Protein 4+ (NEGATIVE) 06/10/21 11:34 Urine Glucose (UA) Negative (NEGATIVE) 06/10/21 11:34 Urine Ketones 1+ (NEGATIVE) 06/10/21 11:34 Urine Blood 4+ (NEGATIVE) 06/10/21 11:34 Urine Nitrite Negative (NEGATIVE) 06/10/21 11:34 Urine Bilirubin Negative (NEGATIVE) 06/10/21 11:34 Urine Urobilinogen 1+ (NORMAL) 06/10/21 11:34 Ur Leukocyte Esterase 3+ (NEGATIVE) 06/10/21 11:34 Urine RBC 5-10 /HPF (0-3) A 06/10/21 11:34 Urine WBC Tntc /HPF (0-5) A 06/10/21 11:34 Ur Squamous Epith Cells Rare /HPF (NEGATIVE) 06/10/21 11:34 Urine Bacteria 1+ /HPF (NEGATIVE) 06/10/21 11:34 Ur Culture Indicated? Yes/culture set up 06/10/21 11:34 Stool Description 5 unformed brown 06/17/21 05:45 Stl Occult Blood (IFOB) Negative (NEGATIVE) 06/17/21 05:45 Vancomycin Trough 17.2 ug/mL (15-20) 06/19/21 06:20 SARS CoV-2 RNA Rapid NEVAEH Negative (NEGATIVE) 06/10/21 11:19 Tissue Pathology To follow 06/11/21 15:20 Blood Type A POSITIVE 06/18/21 08:25 Antibody Screen Negative 06/18/21 08:25 Crossmatch See Detail 06/18/21 08:25 Plan (1) Sepsis: Status: Acute Qualifiers: Acute renal failure type: unspecified Sepsis acute organ dysfunction status: with acute organ dysfunction Sepsis type: sepsis due to unspecified organism Severe sepsis acute organ dysfunction type: acute renal failure Severe sepsis shock status: with septic shock Qualified Code(s): A41.9 - Sepsis, unspecified organism; R65.21 - Severe sepsis with septic shock; N17.9 - Acute kidney failure, unspecified Plan: IVF, IV antibiotics, continue dopamine gtt (2) Acute hyponatremia: Status: Acute (3) Acute UTI: Status: Acute (4) Acute hypotension: Status: Acute (5) Hyponatremia: Status: Acute (6) Acute renal failure: Status: Acute (7) Decubitus ulcer of sacral region, stage 4: Status: Acute Plan: Consult general surgery
[2021-06-19] MEDS ORDERED: PHARMACY COMMENT IV NR (08:30)
[2021-06-19] MEDS: COLACE CAP 100 MG PO SCH ×3 (08:37→20:24)
[2021-06-19] MEDS: ALBUMIN HUMAN 25%- 100 ML 100 ML IV SCH (08:37)
[2021-06-19] MEDS: JUVEN PO SCH ×2 (08:38→20:26)
[2021-06-19] MEDS: LEXAPRO PO SCH (08:38)
[2021-06-19] MEDS: NS 1,000 ML IV 1,000 ML IV SCH (08:38)
[2021-06-19] MEDS: HEMOCYTE-PLUS PO SCH ×2 (08:38→20:25)
[2021-06-19] MEDS: SYNTHROID 50 mcg TAB PO SCH (08:39)
[2021-06-19] MEDS: ZOSYN VIAL 3.375 GRAMS 3.375 G in NS 100 ML IV 100 ML IV SCH ×2 (08:39→21:08)
[2021-06-19] MEDS: NAMENDA TAB 10 MG PO SCH ×2 (08:39→20:25)
[2021-06-19] MEDS: NYSTATIN POWDER TOP SCH ×2 (08:39→20:25)
[2021-06-19] MEDS: PROTONIX TAB 40 MG PO SCH (08:41)
[2021-06-19] MEDS: K-DUR TAB 20 MEQ PO PRN (08:41)
[2021-06-19] MEDS ORDERED: NS 1,000 ML IV 1,000 ML IV SCH (09:00)
[2021-06-19] MEDS: TYLENOL #3 TAB (W/CODEINE) PO PRN (11:27)
[2021-06-20] MEDS: ASCORBIC ACID INJ MULTI-DOSE VIAL 1,500 MG in NS 50 ML IV 50 ML IV SCH ×2 (02:01→09:40)
[2021-06-20] MEDS: FLAGYL IV PREMIX 500 MG BAG 500 MG/100 ML BAG IV SCH ×3 (05:13→21:28)
[2021-06-20] MEDS: SINEMET (PLAIN) 10/100 MG PO SCH ×3 (05:13→21:28)
[2021-06-20 05:33] LABS: BASOPHILS # (AUTO) 0.1 X10^3/uL (0.0-0.1); BASOPHILS % (AUTO) 0.4 % (0.2-1.0); EOSINOPHILS # (AUTO) 0.1 x10^3/uL (0.0-0.2); EOSINOPHILS % (AUTO) 0.4 % (0.9-2.9); HEMATOCRIT 27.6 % (36.0-47.0); HEMOGLOBIN 9.3 g/dL (12.0-16.0); LYMPHOCYTES # (AUTO) 1.5 X10^3/uL (1.3-2.9); LYMPHOCYTES % (AUTO) 9.9 % (21.0-51.0); MEAN CORPUSCULAR HEMOGLOBIN 30.3 pg (27.0-34.0); MEAN CORPUSCULAR HGB CONC 33.6 g/dL (33.0-35.0); MEAN CORPUSCULAR VOLUME 90.2 fL (80.0-100.0); MEAN PLATELET VOLUME 7.5 fL (7.4-11.0); MONOCYTES # (AUTO) 0.8 x10^3/uL (0.3-0.8); MONOCYTES % (AUTO) 5.3 % (0.0-13.0); NEUTROPHILS # (AUTO) 13.1 x10^3/uL (2.2-4.8); RED BLOOD COUNT 3.06 X10^6/uL (3.5-5.4); RED CELL DISTRIBUTION WIDTH 19.7 % (11.6-16.5); WHITE BLOOD COUNT 15.6 X10^3/uL (3.6-10.0)
[2021-06-20 05:44] LABS: ALANINE AMINOTRANSFERASE < 6 Units/L (12-78); ALBUMIN 2.7 g/dL (3.4-5.0); ALKALINE PHOSPHATASE 44 Units/L (46-116); ASPARTATE AMINO TRANSFERASE 10 Units/L (15-37); BLOOD UREA NITROGEN 13 mg/dL (7-18); CARBON DIOXIDE 18.1 mmol/L (21-32); CREATININE 0.96 mg/dL (0.55-1.02); MAGNESIUM 2.1 mg/dL (1.7-2.9); SODIUM 148 mmol/L (136-145); TOTAL PROTEIN 4.5 g/dL (6.4-8.2); eGFR NON BLACK RACES 59 (>60)
[2021-06-20 05:50] LABS: CHLORIDE 118 mmol/L (98-107)
[2021-06-20] MEDS: K-RIDER 10 MEQ/NS 100 ML 10 MEQ/100 ML BAG IV PRN ×4 (06:20→11:00)
[2021-06-20] MEDS ORDERED: LEXAPRO ONE (07:38)
[2021-06-20] MEDS: SYNTHROID 50 mcg TAB PO SCH (08:00)
[2021-06-20] MEDS: ALBUMIN HUMAN 25%- 100 ML 100 ML IV SCH (09:40)
[2021-06-20] MEDS: PROTONIX TAB 40 MG PO SCH (09:41)
[2021-06-20] MEDS: NYSTATIN POWDER TOP SCH ×2 (09:42→21:28)
[2021-06-20] MEDS: NAMENDA TAB 10 MG PO SCH ×2 (09:42→21:27)
[2021-06-20] MEDS: LEXAPRO PO SCH (09:43)
[2021-06-20] MEDS: JUVEN PO SCH ×2 (09:43→21:27)
[2021-06-20] MEDS: HEMOCYTE-PLUS PO SCH ×2 (09:43→21:27)
[2021-06-20] MEDS: COLACE CAP 100 MG PO SCH ×2 (09:43→21:27)
[2021-06-20] MEDS: TYLENOL #3 TAB (W/CODEINE) PO PRN (09:44)
[2021-06-20] MEDS ORDERED: LASIX PO ONE (10:14)
--- NOTE | 2021-06-20 10:19 | PCM.PROG ---
Progress Note Progress Note for Day of Date of Exam: 06/20/21 Subjective Subjective: Pt is a 80 year old female past medical history of Hypertension, COPD, OA, admitted for Sepsis, Decubitus sacral ulcer, UTI, Hyponatremia, and Acute renal failure. She is post debridement of stage 4 sacral ulcer. Pt has received a total of 3 units packed red blood cells. She has wound vac in place as well as arterial line. This morning she is resting comfortably, no acute events overnight. Labs/imaging: Wbc 15.6, Hgb 9.3, Plt 219, Na 148, K 3.2, Creatinine 0.96, Glucose 82, Urine culture positive for Klebsiella pneu., Blood culture negative, Wound culture see report. Stool occult negative, and anemia panel appropriate. Pt is currently receiving: IVF NS@KVO. She was able to be weaned off vasopressor support Dopamine. Arterial line was removed today. Continue antibiotics: IV Zosyn, and IV Flagyl. Discontinue IV albumin and IV vitamin C. Continue home medications. Replete potassium per protocol. Will give lasix po 20mg x1 for generalized edema. Otherwise, continue to monitor closely and follow up labs in the morning. Case management arranging for SNF placement. Past Medical Family Social History Past Med/Fam/Surg Hx: No changes since H&P Allergies: Allergies No Known Drug Allergies Allergy (Verified 06/10/21 10:44) Review of Systems ROS: No change since H&P Vital Signs and I&O's Vital Signs: Temperature 97.7 F Pulse Rate [Left Radial] 99 Pulse Rate 122 Respiratory Rate 17 Blood Pressure [Right Arm] 104/56 Blood Pressure 119/81 O2 Sat by Pulse Oximetry 100 Intake and Output: Intake & Output 06/17/21 06/18/21 06/19/21 06/20/21 23:59 23:59 23:59 23:59 Intake Total 3583 / 3583 1737 / 1737 1856 / 1856 380 / 380 Output Total 875 / 875 700 / 700 800 / 800 450 / 450 Balance 2708 / 2708 1037 / 1037 1056 / 1056 -70 / -70 Physical Exam Oriented: Normal Eyes: Normal Ear: Normal Nose: Normal Throat: Normal Respiratory: Normal Cardiovascular: Normal : Normal Auscultation: Bowel Sounds: Normal Tenderness: Normal Skin: Wound (wound vac sacrum) Musculoskeletal: Instability Psychiatric: Normal Mood Description: Calm and Appropriate Affect: Normal Speech Pattern: Clear and Appropriate Laboratory and Diagnostics Result Diagrams: 06/20/21 04:40 06/20/21 04:40 Labs: 06/10/21 11:20 Blood Blood Culture - Final 06/11/21 15:20 Sacral Wound Gram Stain - Final 06/11/21 15:20 Sacral Wound Culture - Final Enterococcus Faecalis 06/10/21 11:16 Blood Blood Culture - Final 06/10/21 11:34 Urine,Catheterized Urine Culture - Final Klebsiella Pneumoniae Laboratory WBC 15.6 X10^3/uL (3.6-10.0) H 06/20/21 04:40 RBC 3.06 X10^6/uL (3.5-5.4) L 06/20/21 04:40 Hgb 9.3 g/dL (12.0-16.0) L 06/20/21 04:40 Hct 27.6 % (36.0-47.0) L 06/20/21 04:40 MCV 90.2 fL (80.0-100.0) 06/20/21 04:40 MCH 30.3 pg (27.0-34.0) 06/20/21 04:40 MCHC 33.6 g/dL (33.0-35.0) 06/20/21 04:40 RDW 19.7 % (11.6-16.5) H 06/20/21 04:40 Plt Count 219 X10^3/uL (150.0-450.0) 06/20/21 04:40 Plt Count Comment Adequate (ADEQUATE) 06/19/21 06:20 MPV 7.5 fL (7.4-11.0) 06/20/21 04:40 Neut % (Auto) 84.0 % (42.0-75.0) H 06/20/21 04:40 Lymph % (Auto) 9.9 % (21.0-51.0) L 06/20/21 04:40 [place] % (Auto) 5.3 % (0.0-13.0) 06/20/21 04:40 Eos % (Auto) 0.4 % (0.9-2.9) L 06/20/21 04:40 Baso % (Auto) 0.4 % (0.2-1.0) 06/20/21 04:40 Neut # (Auto) 13.1 x10^3/uL (2.2-4.8) H 06/20/21 04:40 Lymph # (Auto) 1.5 X10^3/uL (1.3-2.9) 06/20/21 04:40 [place] # (Auto) 0.8 x10^3/uL (0.3-0.8) 06/20/21 04:40 Eos # (Auto) 0.1 x10^3/uL (0.0-0.2) 06/20/21 04:40 Baso # (Auto) 0.1 X10^3/uL (0.0-0.1) 06/20/21 04:40 Absolute Nucleated RBC 0.6 /100WBC 06/20/21 04:40 Total Counted 100 06/19/21 06:20 Neutrophils % (Manual) 82 % (39-76) H 06/19/21 06:20 Band Neutrophils % 2 % (0-10) 06/14/21 06:44 Lymphocytes % (Manual) 17 % (13-43) 06/19/21 06:20 Monocytes % (Manual) 1 % (4-9) L 06/19/21 06:20 Eosinophils % (Manual) 1 % (0-6) 06/11/21 16:51 Metamyelocytes % 1 06/11/21 04:20 Plt Morphology Comment Normal (NORMAL) 06/19/21 06:20 RBC Morphology Abnormal (NORMAL) A 06/19/21 06:20 Anisocytosis Slight A 06/19/21 06:20 Sodium 148 mmol/L (136-145) H 06/20/21 04:40 Corrected Sodium TNP 06/20/21 04:40 Potassium 3.2 mmol/L (3.5-5.1) L 06/20/21 04:40 Chloride 118 mmol/L (98-107) H* 06/20/21 04:40 Carbon Dioxide 18.1 mmol/L (21-32) L 06/20/21 04:40 BUN 13 mg/dL (7-18) 06/20/21 04:40 Creatinine 0.96 mg/dL (0.55-1.02) 06/20/21 04:40 Est GFR (MDRD) Af Amer > 60 (>60) 06/20/21 04:40 Est GFR (MDRD) Non-Af 59 (>60) 06/20/21 04:40 Glucose 82 mg/dL (65-99) 06/20/21 04:40 Lactic Acid 1.1 mmol/L (0.4-2.0) 06/10/21 11:16 Calcium 8.0 mg/dL (8.5-10.1) L 06/20/21 04:40 Corrected Calcium 9.0 mg/dL (8.5-10.1) 06/20/21 04:40 Magnesium 2.1 mg/dL (1.7-2.9) 06/20/21 04:40 Iron 65 ug/dL (50-175) 06/16/21 05:17 Transferrin 62 mg/dL (202-364) L 06/16/21 05:17 Ferritin 230 ng/mL (8-252) 06/16/21 05:17 Total Bilirubin 0.40 mg/dL (0.2-1.0) 06/20/21 04:40 AST 10 Units/L (15-37) L 06/20/21 04:40 ALT < 6 Units/L (12-78) L 06/20/21 04:40 Alkaline Phosphatase 44 Units/L (46-116) L 06/20/21 04:40 Creatine Kinase 238 Units/L (26-192) H 06/10/21 11:16 CK-MB (CK-2) 7.3 ng/mL (0-4.0) H* 06/10/21 11:16 CK/CKMB % Calc 3.1 % (<4) 06/10/21 11:16 Troponin I High Sens 7.4 ng/L (4.0-60.0) 06/10/21 11:16 Total Protein 4.5 g/dL (6.4-8.2) L 06/20/21 04:40 Albumin 2.7 g/dL (3.4-5.0) L 06/20/21 04:40 Globulin 1.8 g/dL (2.5-4.5) L 06/20/21 04:40 Albumin/Globulin Ratio 1.5 Ratio (1.1-2.1) 06/20/21 04:40 Vitamin B12 300 pg/mL (193-986) 06/16/21 05:17 Folate 18.1 ng/mL (>8.6) 06/16/21 05:17 TSH 3rd Generation 4.075 uIU/mL (0.358-3.74) H 06/10/21 11:16 Specimen Type Catherized urine 06/10/21 11:34 Urine Color Green (YELLOW) 06/10/21 11:34 Urine Appearance Turbid (CLEAR) 06/10/21 11:34 Urine pH 8.0 (5.0 - 8.0) 06/10/21 11:34 Ur Specific [place] 1.015 (1.000-1.030) 06/10/21 11:34 Urine Protein 4+ (NEGATIVE) 06/10/21 11:34 Urine Glucose (UA) Negative (NEGATIVE) 06/10/21 11:34 Urine Ketones 1+ (NEGATIVE) 06/10/21 11:34 Urine Blood 4+ (NEGATIVE) 06/10/21 11:34 Urine Nitrite Negative (NEGATIVE) 06/10/21 11:34 Urine Bilirubin Negative (NEGATIVE) 06/10/21 11:34 Urine Urobilinogen 1+ (NORMAL) 06/10/21 11:34 Ur Leukocyte Esterase 3+ (NEGATIVE) 06/10/21 11:34 Urine RBC 5-10 /HPF (0-3) A 06/10/21 11:34 Urine WBC Tntc /HPF (0-5) A 06/10/21 11:34 Ur Squamous Epith Cells Rare /HPF (NEGATIVE) 06/10/21 11:34 Urine Bacteria 1+ /HPF (NEGATIVE) 06/10/21 11:34 Ur Culture Indicated? Yes/culture set up 06/10/21 11:34 Stool Description 5 unformed brown 06/17/21 05:45 Stl Occult Blood (IFOB) Negative (NEGATIVE) 06/17/21 05:45 Vancomycin Trough 17.2 ug/mL (15-20) 06/19/21 06:20 SARS CoV-2 RNA Rapid NEVAEH Negative (NEGATIVE) 06/10/21 11:19 Tissue Pathology To follow 06/11/21 15:20 Blood Type A POSITIVE 06/18/21 08:25 Antibody Screen Negative 06/18/21 08:25 Crossmatch See Detail 06/18/21 08:25 Plan (1) Sepsis: Status: Acute Qualifiers: Acute renal failure type: unspecified Sepsis acute organ dysfunction status: with acute organ dysfunction Sepsis type: sepsis due to unspecified organism Severe sepsis acute organ dysfunction type: acute renal failure Severe sepsis shock status: with septic shock Qualified Code(s): A41.9 - Sepsis, unspecified organism; R65.21 - Severe sepsis with septic shock; N17.9 - Acute kidney failure, unspecified Plan: IVF, IV antibiotics, continue dopamine gtt (2) Acute hyponatremia: Status: Acute (3) Acute UTI: Status: Acute (4) Acute hypotension: Status: Acute (5) Hyponatremia: Status: Acute (6) Acute renal failure: Status: Acute (7) Decubitus ulcer of sacral region, stage 4: Status: Acute Plan: Consult general surgery
[2021-06-20] MEDS ORDERED: LASIX ONE (10:51)
[2021-06-20] MEDS: LOVENOX INJ 40 MG SYR SC SCH (11:03)
[2021-06-20] MEDS ORDERED: BUTT CREAM (COMPOUND) ONE (13:57)
[2021-06-20] MEDS ORDERED: BUTT CREAM (COMPOUND) TOP PRN (14:14)
[2021-06-20 15:14] LABS: BILIRUBIN,URINE NEGATIVE (NEGATIVE); BLOOD/HEMOGLOBIN,URINE 5+ (NEGATIVE); GLUCOSE, URINE NEGATIVE (NEGATIVE); KETONES,URINE NEGATIVE (NEGATIVE); LEUKOCYTE ESTERASE ,URINE 1+ (NEGATIVE); NITRITES,URINE NEGATIVE (NEGATIVE); PROTEIN,URINE 2+ (NEGATIVE); UROBILINOGEN,URINE NORMAL (NORMAL)
[2021-06-20 15:26] LABS: APPEARANCE,URINE HAZY (CLEAR); COLOR,URINE YELLOW (YELLOW)
[2021-06-20 15:27] LABS: BACTERIA,URINE 1+ /HPF (NEGATIVE); RBC,URINE TNTC /HPF (0-3); SQUAMOUS EPITHELIAL CELL,UR NUMEROUS /HPF (NEGATIVE)
[2021-06-20] MEDS: NS 1,000 ML IV 1,000 ML IV SCH (16:08)
[2021-06-20] MEDS: K-DUR TAB 20 MEQ PO PRN (18:15)
[2021-06-21 04:33] LABS: BASOPHILS # (AUTO) 0.1 X10^3/uL (0.0-0.1); BASOPHILS % (AUTO) 0.4 % (0.2-1.0); EOSINOPHILS # (AUTO) 0.1 x10^3/uL (0.0-0.2); EOSINOPHILS % (AUTO) 0.4 % (0.9-2.9); HEMATOCRIT 25.9 % (36.0-47.0); HEMOGLOBIN 8.8 g/dL (12.0-16.0); LYMPHOCYTES % (AUTO) 7.1 % (21.0-51.0); MEAN CORPUSCULAR HEMOGLOBIN 30.8 pg (27.0-34.0); MEAN CORPUSCULAR HGB CONC 33.9 g/dL (33.0-35.0); MEAN CORPUSCULAR VOLUME 90.8 fL (80.0-100.0); MEAN PLATELET VOLUME 7.8 fL (7.4-11.0); MONOCYTES # (AUTO) 0.8 x10^3/uL (0.3-0.8); MONOCYTES % (AUTO) 5.7 % (0.0-13.0); NEUTROPHILS # (AUTO) 11.6 x10^3/uL (2.2-4.8); NEUTROPHILS % (AUTO) 86.4 % (42.0-75.0); RED BLOOD COUNT 2.85 X10^6/uL (3.5-5.4); RED CELL DISTRIBUTION WIDTH 20.1 % (11.6-16.5); WHITE BLOOD COUNT 13.4 X10^3/uL (3.6-10.0)
[2021-06-21 04:43] LABS: ALANINE AMINOTRANSFERASE < 6 Units/L (12-78); ALBUMIN 2.7 g/dL (3.4-5.0); ALKALINE PHOSPHATASE 41 Units/L (46-116); ASPARTATE AMINO TRANSFERASE 10 Units/L (15-37); BLOOD UREA NITROGEN 11 mg/dL (7-18); CALCIUM 7.6 mg/dL (8.5-10.1); CARBON DIOXIDE 19.5 mmol/L (21-32); COR CA(FOR HYPOALB) 8.6 mg/dL (8.5-10.1); CREATININE 0.95 mg/dL (0.55-1.02); SODIUM 148 mmol/L (136-145); TOTAL PROTEIN 4.4 g/dL (6.4-8.2); eGFR NON BLACK RACES > 60 (>60)
[2021-06-21 04:49] LABS: CHLORIDE 117 mmol/L (98-107)
[2021-06-21] MEDS: SINEMET (PLAIN) 10/100 MG PO SCH ×3 (05:09→21:05)
[2021-06-21] MEDS: FLAGYL IV PREMIX 500 MG BAG 500 MG/100 ML BAG IV SCH ×3 (05:09→21:05)
[2021-06-21] MEDS: K-RIDER 10 MEQ/NS 100 ML 10 MEQ/100 ML BAG IV PRN ×4 (05:10→09:54)
[2021-06-21 05:33] LABS: ANISOCYTOSIS SLIGHT; PLATELET MORPHOLOGY COMMENT NORMAL (NORMAL); TARGET CELLS PRESENT
[2021-06-21] MEDS ORDERED: LEXAPRO ONE (08:04)
[2021-06-21] MEDS: LEXAPRO PO SCH (08:34)
[2021-06-21] MEDS: PROTONIX TAB 40 MG PO SCH (08:34)
[2021-06-21] MEDS: NAMENDA TAB 10 MG PO SCH ×2 (08:34→21:05)
[2021-06-21] MEDS: SYNTHROID 50 mcg TAB PO SCH (08:36)
[2021-06-21] MEDS: NYSTATIN POWDER TOP SCH ×2 (08:36→21:21)
[2021-06-21] MEDS: HEMOCYTE-PLUS PO SCH ×2 (08:36→21:05)
[2021-06-21] MEDS: COLACE CAP 100 MG PO SCH ×2 (08:36→21:07)
[2021-06-21] MEDS: LOVENOX INJ 40 MG SYR SC SCH (08:37)
[2021-06-21] MEDS: NS 1,000 ML IV 1,000 ML IV SCH ×2 (09:08→21:08)
[2021-06-21] MEDS: JUVEN PO SCH ×3 (09:55→21:20)
--- NOTE | 2021-06-21 11:25 | PCM.PROG ---
Progress Note Progress Note for Day of Date of Exam: 06/21/21 Subjective Subjective: Pt is a 80 year old female past medical history of Hypertension, COPD, OA, admitted for Sepsis, Decubitus sacral ulcer, UTI, Hyponatremia, and Acute renal failure. She is post debridement of stage 4 sacral ulcer. Pt has received a total of 3 units packed red blood cells. She has wound vac in place as well as arterial line. No acute changes or events overnight. Labs/imaging: Wbc 13.4, Hgb 8.8, Plt 190, Na 148, K 3.2, Creatinine 0.96, Glucose 82, Urine culture positive for Klebsiella pneu., Blood culture negative, Wound culture see report. Stool occult negative, and anemia panel appropriate. Pt is currently receiving: IVF NS@KVO. Continue antibiotics: IV Zosyn, and IV Flagyl. Continue home medications. Replete potassium per protocol. Otherwise, continue to monitor closely and follow up labs in the morning. Case management arranging for SNF placement. Past Medical Family Social History Past Med/Fam/Surg Hx: No changes since H&P Allergies: Allergies No Known Drug Allergies Allergy (Verified 06/10/21 10:44) Review of Systems ROS: No change since H&P Vital Signs and I&O's Vital Signs: Temperature 98.2 F Pulse Rate [Left Radial] 99 Pulse Rate 79 Respiratory Rate 15 Blood Pressure [Right Arm] 104/56 Blood Pressure 109/68 O2 Sat by Pulse Oximetry 100 Intake and Output: Intake & Output 06/18/21 06/19/21 06/20/21 06/21/21 23:59 23:59 23:59 23:59 Intake Total 1737 / 1737 1856 / 1856 1199 / 1199 587 / 587 Output Total 700 / 700 800 / 800 1800 / 1800 400 / 400 Balance 1037 / 1037 1056 / 1056 -601 / -601 187 / 187 Physical Exam Oriented: Normal Eyes: Normal Ear: Normal Nose: Normal Throat: Normal Respiratory: Normal Cardiovascular: Normal : Normal Auscultation: Bowel Sounds: Normal Tenderness: Normal Skin: Wound (wound vac sacrum) Musculoskeletal: Instability Psychiatric: Normal Mood Description: Calm and Appropriate Affect: Normal Speech Pattern: Clear and Appropriate Laboratory and Diagnostics Result Diagrams: 06/21/21 03:50 06/21/21 03:50 Labs: 06/20/21 14:39 Urine,Catheterized Urine Culture - Preliminary 06/10/21 11:20 Blood Blood Culture - Final 06/11/21 15:20 Sacral Wound Gram Stain - Final 06/11/21 15:20 Sacral Wound Culture - Final Enterococcus Faecalis 06/10/21 11:16 Blood Blood Culture - Final 06/10/21 11:34 Urine,Catheterized Urine Culture - Final Klebsiella Pneumoniae Laboratory WBC 13.4 X10^3/uL (3.6-10.0) H 06/21/21 03:50 RBC 2.85 X10^6/uL (3.5-5.4) L 06/21/21 03:50 Hgb 8.8 g/dL (12.0-16.0) L 06/21/21 03:50 Hct 25.9 % (36.0-47.0) L 06/21/21 03:50 MCV 90.8 fL (80.0-100.0) 06/21/21 03:50 MCH 30.8 pg (27.0-34.0) 06/21/21 03:50 MCHC 33.9 g/dL (33.0-35.0) 06/21/21 03:50 RDW 20.1 % (11.6-16.5) H 06/21/21 03:50 Plt Count 190 X10^3/uL (150.0-450.0) 06/21/21 03:50 Plt Count Comment Adequate (ADEQUATE) 06/21/21 03:50 MPV 7.8 fL (7.4-11.0) 06/21/21 03:50 Neut % (Auto) 86.4 % (42.0-75.0) H 06/21/21 03:50 Lymph % (Auto) 7.1 % (21.0-51.0) L 06/21/21 03:50 [place] % (Auto) 5.7 % (0.0-13.0) 06/21/21 03:50 Eos % (Auto) 0.4 % (0.9-2.9) L 06/21/21 03:50 Baso % (Auto) 0.4 % (0.2-1.0) 06/21/21 03:50 Neut # (Auto) 11.6 x10^3/uL (2.2-4.8) H 06/21/21 03:50 Lymph # (Auto) 1.0 X10^3/uL (1.3-2.9) L 06/21/21 03:50 [place] # (Auto) 0.8 x10^3/uL (0.3-0.8) 06/21/21 03:50 Eos # (Auto) 0.1 x10^3/uL (0.0-0.2) 06/21/21 03:50 Baso # (Auto) 0.1 X10^3/uL (0.0-0.1) 06/21/21 03:50 Absolute Nucleated RBC 0.2 /100WBC 06/21/21 03:50 Total Counted 100 06/19/21 06:20 Neutrophils % (Manual) 82 % (39-76) H 06/19/21 06:20 Band Neutrophils % 2 % (0-10) 06/14/21 06:44 Lymphocytes % (Manual) 17 % (13-43) 06/19/21 06:20 Monocytes % (Manual) 1 % (4-9) L 06/19/21 06:20 Eosinophils % (Manual) 1 % (0-6) 06/11/21 16:51 Metamyelocytes % 1 06/11/21 04:20 Plt Morphology Comment Normal (NORMAL) 06/21/21 03:50 RBC Morphology Abnormal (NORMAL) A 06/21/21 03:50 Anisocytosis Slight A 06/21/21 03:50 Target Cells Present 06/21/21 03:50 Sodium 148 mmol/L (136-145) H 06/21/21 03:50 Corrected Sodium TNP 06/21/21 03:50 Potassium 3.2 mmol/L (3.5-5.1) L 06/21/21 03:50 Chloride 117 mmol/L (98-107) H* 06/21/21 03:50 Carbon Dioxide 19.5 mmol/L (21-32) L 06/21/21 03:50 BUN 11 mg/dL (7-18) 06/21/21 03:50 Creatinine 0.95 mg/dL (0.55-1.02) 06/21/21 03:50 Est GFR (MDRD) Af Amer > 60 (>60) 06/21/21 03:50 Est GFR (MDRD) Non-Af > 60 (>60) 06/21/21 03:50 Glucose 84 mg/dL (65-99) 06/21/21 03:50 Lactic Acid 1.1 mmol/L (0.4-2.0) 06/10/21 11:16 Calcium 7.6 mg/dL (8.5-10.1) L 06/21/21 03:50 Corrected Calcium 8.6 mg/dL (8.5-10.1) 06/21/21 03:50 Magnesium 2.0 mg/dL (1.7-2.9) 06/21/21 03:50 Iron 65 ug/dL (50-175) 06/16/21 05:17 Transferrin 62 mg/dL (202-364) L 06/16/21 05:17 Ferritin 230 ng/mL (8-252) 06/16/21 05:17 Total Bilirubin 0.50 mg/dL (0.2-1.0) 06/21/21 03:50 AST 10 Units/L (15-37) L 06/21/21 03:50 ALT < 6 Units/L (12-78) L 06/21/21 03:50 Alkaline Phosphatase 41 Units/L (46-116) L 06/21/21 03:50 Creatine Kinase 238 Units/L (26-192) H 06/10/21 11:16 CK-MB (CK-2) 7.3 ng/mL (0-4.0) H* 06/10/21 11:16 CK/CKMB % Calc 3.1 % (<4) 06/10/21 11:16 Troponin I High Sens 7.4 ng/L (4.0-60.0) 06/10/21 11:16 Total Protein 4.4 g/dL (6.4-8.2) L 06/21/21 03:50 Albumin 2.7 g/dL (3.4-5.0) L 06/21/21 03:50 Globulin 1.7 g/dL (2.5-4.5) L 06/21/21 03:50 Albumin/Globulin Ratio 1.6 Ratio (1.1-2.1) 06/21/21 03:50 Vitamin B12 300 pg/mL (193-986) 06/16/21 05:17 Folate 18.1 ng/mL (>8.6) 06/16/21 05:17 TSH 3rd Generation 4.075 uIU/mL (0.358-3.74) H 06/10/21 11:16 Specimen Type Catherized urine 06/20/21 14:39 Urine Color Yellow (YELLOW) 06/20/21 14:39 Urine Appearance Hazy (CLEAR) 06/20/21 14:39 Urine pH 5.0 (5.0 - 8.0) 06/20/21 14:39 Ur Specific [place] 1.015 (1.000-1.030) 06/20/21 14:39 Urine Protein 2+ (NEGATIVE) 06/20/21 14:39 Urine Glucose (UA) Negative (NEGATIVE) 06/20/21 14:39 Urine Ketones Negative (NEGATIVE) 06/20/21 14:39 Urine Blood 5+ (NEGATIVE) 06/20/21 14:39 Urine Nitrite Negative (NEGATIVE) 06/20/21 14:39 Urine Bilirubin Negative (NEGATIVE) 06/20/21 14:39 Urine Urobilinogen Normal (NORMAL) 06/20/21 14:39 Ur Leukocyte Esterase 1+ (NEGATIVE) 06/20/21 14:39 Urine RBC Tntc /HPF (0-3) A 06/20/21 14:39 Urine WBC 5-10 /HPF (0-5) A 06/20/21 14:39 Ur Squamous Epith Cells Numerous /HPF (NEGATIVE) 06/20/21 14:39 Urine Bacteria 1+ /HPF (NEGATIVE) 06/20/21 14:39 Ur Culture Indicated? Yes/culture set up 06/20/21 14:39 Stool Description 5 unformed brown 06/17/21 05:45 Stl Occult Blood (IFOB) Negative (NEGATIVE) 06/17/21 05:45 Vancomycin Trough 17.2 ug/mL (15-20) 06/19/21 06:20 SARS CoV-2 RNA Rapid NEVAEH Negative (NEGATIVE) 06/10/21 11:19 Tissue Pathology To follow 06/11/21 15:20 Blood Type A POSITIVE 06/18/21 08:25 Antibody Screen Negative 06/18/21 08:25 Crossmatch See Detail 06/18/21 08:25 Plan (1) Sepsis: Status: Acute Qualifiers: Acute renal failure type: unspecified Sepsis acute organ dysfunction status: with acute organ dysfunction Sepsis type: sepsis due to unspecified organism Severe sepsis acute organ dysfunction type: acute renal failure Severe sepsis shock status: with septic shock Qualified Code(s): A41.9 - Sepsis, unspecified organism; R65.21 - Severe sepsis with septic shock; N17.9 - Acute kidney failure, unspecified Plan: IVF, IV antibiotics, continue dopamine gtt (2) Acute hyponatremia: Status: Acute (3) Acute UTI: Status: Acute (4) Acute hypotension: Status: Acute (5) Hyponatremia: Status: Acute (6) Acute renal failure: Status: Acute (7) Decubitus ulcer of sacral region, stage 4: Status: Acute Plan: Consult general surgery
[2021-06-21] MEDS: ZOSYN VIAL 3.375 GRAMS 3.375 G in NS 100 ML IV 100 ML IV SCH ×3 (13:00→21:05)
[2021-06-22 05:04] LABS: BASOPHILS # (AUTO) 0.1 X10^3/uL (0.0-0.1); BASOPHILS % (AUTO) 0.5 % (0.2-1.0); EOSINOPHILS # (AUTO) 0.1 x10^3/uL (0.0-0.2); EOSINOPHILS % (AUTO) 0.6 % (0.9-2.9); HEMOGLOBIN 9.3 g/dL (12.0-16.0); LYMPHOCYTES # (AUTO) 0.9 X10^3/uL (1.3-2.9); LYMPHOCYTES % (AUTO) 6.5 % (21.0-51.0); MEAN CORPUSCULAR HEMOGLOBIN 30.7 pg (27.0-34.0); MEAN CORPUSCULAR HGB CONC 33.3 g/dL (33.0-35.0); MEAN CORPUSCULAR VOLUME 92.1 fL (80.0-100.0); MEAN PLATELET VOLUME 7.9 fL (7.4-11.0); MONOCYTES % (AUTO) 7.3 % (0.0-13.0); NEUTROPHILS # (AUTO) 11.7 x10^3/uL (2.2-4.8); NEUTROPHILS % (AUTO) 85.1 % (42.0-75.0); RED BLOOD COUNT 3.04 X10^6/uL (3.5-5.4); RED CELL DISTRIBUTION WIDTH 20.7 % (11.6-16.5); WHITE BLOOD COUNT 13.8 X10^3/uL (3.6-10.0)
[2021-06-22 05:13] LABS: ALANINE AMINOTRANSFERASE < 6 Units/L (12-78); ALBUMIN 2.4 g/dL (3.4-5.0); ALKALINE PHOSPHATASE 45 Units/L (46-116); ASPARTATE AMINO TRANSFERASE 13 Units/L (15-37); BLOOD UREA NITROGEN 8 mg/dL (7-18); CALCIUM 7.8 mg/dL (8.5-10.1); COR CA(FOR HYPOALB) 9.1 mg/dL (8.5-10.1); SODIUM 147 mmol/L (136-145); TOTAL PROTEIN 4.3 g/dL (6.4-8.2); eGFR NON BLACK RACES > 60 (>60)
[2021-06-22 05:23] LABS: CHLORIDE 116 mmol/L (98-107)
[2021-06-22] MEDS: ZOSYN VIAL 3.375 GRAMS 3.375 G in NS 100 ML IV 100 ML IV SCH ×3 (05:30→21:11)
[2021-06-22] MEDS: SINEMET (PLAIN) 10/100 MG PO SCH ×3 (05:30→21:10)
[2021-06-22] MEDS: FLAGYL IV PREMIX 500 MG BAG 500 MG/100 ML BAG IV SCH ×3 (05:31→21:10)
[2021-06-22 05:41] LABS: ANISOCYTOSIS 1+; PLATELET MORPHOLOGY COMMENT NORMAL (NORMAL); TARGET CELLS PRESENT
[2021-06-22] MEDS: COLACE CAP 100 MG PO SCH ×2 (08:49→20:03)
[2021-06-22] MEDS ORDERED: LEXAPRO ONE (08:51)
[2021-06-22] MEDS: JUVEN PO SCH ×2 (08:51→20:04)
[2021-06-22] MEDS: HEMOCYTE-PLUS PO SCH ×2 (08:52→20:02)
[2021-06-22] MEDS: SYNTHROID 50 mcg TAB PO SCH (08:52)
[2021-06-22] MEDS: PROTONIX TAB 40 MG PO SCH (08:53)
[2021-06-22] MEDS: NAMENDA TAB 10 MG PO SCH ×2 (08:53→20:03)
[2021-06-22] MEDS: LEXAPRO PO SCH (08:53)
[2021-06-22] MEDS: NYSTATIN POWDER TOP SCH ×2 (08:54→20:03)
[2021-06-22] MEDS: LOVENOX INJ 40 MG SYR SC SCH (08:54)
--- NOTE | 2021-06-22 09:35 | W.DIS.FURT ---
Summary of Discharge Discharge Summary of Date Date of Exam: 06/25/21 Admission Date Date of Admission: 06/10/21 Admission Diagnosis Patient Problems (Updated 06/22/21 @ 09:33 by Martín Blake) Sepsis (Acute) A41.9 Acute hyponatremia (Acute) E87.1 Azotemia (Acute) R79.89 Acute UTI (Acute) N39.0 Decubitus ulcer of sacral region, stage 4 (Acute) L89.154 Hospital Course: Pt is a 80 year old female past medical history of Hypertension, COPD, OA, admitted for Sepsis, Decubitus sacral ulcer, UTI, Hyponatremia, and Acute renal failure. She is post debridement of stage 4 sacral ulcer. Pt has received a total of 3 units packed red blood cells for anemia. She has wound vac in place. Pt had urine culture positive for Klebsiella pneu., Blood culture negative, Wound culture see report. Stool occult negative, and anemia panel appropriate. She received antibiotics: IV Zosyn and IV Flagyl and responded well to treatments, completed course with leukocytosis resolved. Pt discharged in stable condition to SNF. She is instructed to follow up with general surgery outpatient for continued wound care. Vital Signs: Vital Signs (72 hours) 06/19/21 09:45 06/19/21 10:00 06/19/21 10:15 Temperature Pulse Rate 78 71 69 Respiratory Rate 14 15 14 Blood Pressure 115/57 115/53 107/58 O2 Sat by Pulse Oximetry 99 98 98 06/19/21 10:30 06/19/21 10:45 06/19/21 11:00 Temperature Pulse Rate 67 78 81 Respiratory Rate 15 15 15 Blood Pressure 111/64 110/61 119/58 O2 Sat by Pulse Oximetry 99 100 99 06/19/21 11:16 06/19/21 11:27 06/19/21 11:30 Temperature Pulse Rate 78 84 Respiratory Rate 16 22 14 Blood Pressure 117/63 109/55 O2 Sat by Pulse Oximetry 99 99 06/19/21 11:45 06/19/21 12:00 06/19/21 12:15 Temperature 98.7 F Pulse Rate 74 78 Respiratory Rate 14 14 Blood Pressure 107/51 105/53 105/58 O2 Sat by Pulse Oximetry 100 100 06/19/21 12:27 06/19/21 12:30 06/19/21 12:45 Temperature Pulse Rate 81 115 H Respiratory Rate 20 16 15 Blood Pressure 118/61 118/65 O2 Sat by Pulse Oximetry 99 96 06/19/21 13:00 06/19/21 13:16 06/19/21 13:30 Temperature Pulse Rate 89 69 Respiratory Rate 15 12 Blood Pressure 112/59 103/51 104/59 O2 Sat by Pulse Oximetry 100 99 06/19/21 13:45 06/19/21 14:00 06/19/21 14:15 Temperature Pulse Rate 82 96 H 73 Respiratory Rate 13 14 13 Blood Pressure 105/66 115/76 112/78 O2 Sat by Pulse Oximetry 100 99 100 06/19/21 14:30 06/19/21 14:31 06/19/21 14:45 Temperature Pulse Rate 70 93 H 69 Respiratory Rate 14 13 13 Blood Pressure 116/69 121/58 O2 Sat by Pulse Oximetry 99 100 100 06/19/21 15:00 06/19/21 15:15 06/19/21 15:30 Temperature Pulse Rate 84 87 89 Respiratory Rate 15 13 15 Blood Pressure 118/69 115/63 121/66 O2 Sat by Pulse Oximetry 100 99 100 06/19/21 15:45 06/19/21 16:00 06/19/21 16:15 Temperature 97.8 F Pulse Rate 73 89 75 Respiratory Rate 14 15 14 Blood Pressure 118/64 119/68 123/71 O2 Sat by Pulse Oximetry 100 100 100 06/19/21 16:30 06/19/21 16:45 06/19/21 17:00 Temperature Pulse Rate 76 86 92 H Respiratory Rate 16 15 16 Blood Pressure 122/73 124/63 143/64 O2 Sat by Pulse Oximetry 99 98 99 06/19/21 17:16 06/19/21 17:30 06/19/21 17:45 Temperature Pulse Rate 94 H 89 74 Respiratory Rate 16 16 14 Blood Pressure 134/72 113/65 130/60 O2 Sat by Pulse Oximetry 98 99 99 06/19/21 18:00 06/19/21 19:00 06/19/21 20:00 Temperature 97.8 F Pulse Rate 81 70 Respiratory Rate 16 16 Blood Pressure 134/62 115/56 125/70 O2 Sat by Pulse Oximetry 99 100 06/19/21 21:00 06/19/21 22:00 06/19/21 23:00 Temperature Pulse Rate 72 68 77 Respiratory Rate 16 16 18 Blood Pressure 115/68 112/70 113/68 O2 Sat by Pulse Oximetry 100 100 100 06/20/21 00:00 06/20/21 01:00 06/20/21 02:00 Temperature Pulse Rate 68 68 72 Respiratory Rate 18 18 18 Blood Pressure 116/63 119/66 120/65 O2 Sat by Pulse Oximetry 99 99 98 06/20/21 03:00 06/20/21 04:00 06/20/21 05:00 Temperature 97.7 F Pulse Rate 80 75 83 Respiratory Rate 18 18 18 Blood Pressure 110/55 110/62 153/83 O2 Sat by Pulse Oximetry 98 98 99 06/20/21 06:00 06/20/21 07:00 06/20/21 07:45 Temperature Pulse Rate 65 77 84 Respiratory Rate 20 15 17 Blood Pressure 125/58 127/65 O2 Sat by Pulse Oximetry 100 100 92 L 06/20/21 08:00 06/20/21 09:00 06/20/21 09:44 Temperature Pulse Rate 80 Respiratory Rate 15 20 Blood Pressure 135/78 126/59 O2 Sat by Pulse Oximetry 99 06/20/21 10:00 06/20/21 10:15 06/20/21 10:16 Temperature 97.7 F Pulse Rate 122 H 83 Respiratory Rate 17 16 Blood Pressure 119/81 127/69 O2 Sat by Pulse Oximetry 100 100 06/20/21 10:44 06/20/21 11:00 06/20/21 12:00 Temperature Pulse Rate 90 80 Respiratory Rate 18 16 15 Blood Pressure 125/68 121/72 O2 Sat by Pulse Oximetry 100 100 06/20/21 13:00 06/20/21 13:15 06/20/21 13:30 Temperature Pulse Rate 80 97 H 85 Respiratory Rate 13 16 15 Blood Pressure 123/81 134/75 126/85 O2 Sat by Pulse Oximetry 100 100 100 06/20/21 13:45 06/20/21 14:00 06/20/21 14:01 Temperature Pulse Rate 100 H 101 H 97 H Respiratory Rate 20 27 H 32 H Blood Pressure 126/66 135/60 O2 Sat by Pulse Oximetry 100 95 93 L 06/20/21 14:15 06/20/21 14:30 06/20/21 14:45 Temperature Pulse Rate 89 91 H Respiratory Rate 15 15 Blood Pressure 123/64 126/68 121/67 O2 Sat by Pulse Oximetry 100 100 06/20/21 15:00 06/20/21 15:15 06/20/21 15:30 Temperature Pulse Rate 86 86 Respiratory Rate 15 16 Blood Pressure 120/67 122/71 126/78 O2 Sat by Pulse Oximetry 100 100 06/20/21 15:45 06/20/21 16:00 06/20/21 16:15 Temperature 97.9 F Pulse Rate 85 93 H 86 Respiratory Rate 15 16 16 Blood Pressure 125/81 133/77 124/64 O2 Sat by Pulse Oximetry 100 100 100 06/20/21 16:30 06/20/21 16:45 06/20/21 17:00 Temperature Pulse Rate 90 80 80 Respiratory Rate 17 15 15 Blood Pressure 117/69 115/63 115/67 O2 Sat by Pulse Oximetry 99 100 100 06/20/21 17:15 06/20/21 17:30 06/20/21 17:46 Temperature Pulse Rate 79 82 91 H Respiratory Rate 14 14 16 Blood Pressure 115/63 123/67 115/72 O2 Sat by Pulse Oximetry 100 100 93 L 06/20/21 18:00 06/20/21 18:15 06/20/21 19:00 Temperature Pulse Rate 101 H 93 H 77 Respiratory Rate 22 16 13 Blood Pressure 120/59 119/59 106/56 O2 Sat by Pulse Oximetry 99 100 100 06/20/21 20:00 06/20/21 21:00 06/20/21 22:00 Temperature 98.7 F Pulse Rate 87 88 98 H Respiratory Rate 15 29 H 18 Blood Pressure 115/61 116/66 126/72 O2 Sat by Pulse Oximetry 100 100 100 06/20/21 23:00 06/21/21 00:00 06/21/21 01:00 Temperature 98.2 F Pulse Rate 83 79 85 Respiratory Rate 15 14 15 Blood Pressure 125/66 118/68 118/79 O2 Sat by Pulse Oximetry 100 100 100 06/21/21 02:00 06/21/21 03:00 06/21/21 04:00 Temperature 97.9 F Pulse Rate 74 75 80 Respiratory Rate 13 17 15 Blood Pressure 162/84 116/59 109/59 O2 Sat by Pulse Oximetry 99 100 06/21/21 05:00 06/21/21 06:00 06/21/21 07:00 Temperature Pulse Rate 82 88 76 Respiratory Rate 19 16 19 Blood Pressure 116/79 106/61 108/62 O2 Sat by Pulse Oximetry 06/21/21 08:00 06/21/21 09:00 06/21/21 10:00 Temperature 98.2 F Pulse Rate 81 100 H 96 H Respiratory Rate 22 22 17 Blood Pressure 109/61 112/57 109/58 O2 Sat by Pulse Oximetry 100 100 100 06/21/21 11:00 06/21/21 12:01 06/21/21 13:00 Temperature 98.3 F Pulse Rate 79 95 H 84 Respiratory Rate 15 14 14 Blood Pressure 109/68 112/75 116/56 O2 Sat by Pulse Oximetry 100 100 100 06/21/21 14:00 06/21/21 15:00 06/21/21 16:00 Temperature Pulse Rate 100 H 84 71 Respiratory Rate 17 15 14 Blood Pressure 117/63 108/63 105/56 O2 Sat by Pulse Oximetry 100 100 100 06/21/21 17:00 06/21/21 18:00 06/21/21 19:00 Temperature Pulse Rate 88 86 84 Respiratory Rate 14 15 16 Blood Pressure 110/57 110/62 113/67 O2 Sat by Pulse Oximetry 100 99 100 06/21/21 20:00 06/21/21 21:00 06/21/21 22:00 Temperature 98.1 F Pulse Rate 81 80 80 Respiratory Rate 13 29 H 28 H Blood Pressure 119/59 103/64 107/65 O2 Sat by Pulse Oximetry 100 100 100 06/21/21 23:00 06/22/21 00:00 06/22/21 01:00 Temperature 98.0 F Pulse Rate 86 82 79 Respiratory Rate 16 16 16 Blood Pressure 111/63 119/65 115/77 O2 Sat by Pulse Oximetry 97 100 100 06/22/21 03:00 06/22/21 04:00 06/22/21 05:00 Temperature 97.9 F Pulse Rate 63 73 Respiratory Rate 16 11 L Blood Pressure 112/59 102/64 O2 Sat by Pulse Oximetry 98 100 06/22/21 06:00 06/22/21 07:00 06/22/21 09:00 Temperature 97.9 F Pulse Rate 59 L 65 62 Respiratory Rate 17 17 13 Blood Pressure 104/55 97/54 103/54 O2 Sat by Pulse Oximetry 100 100 100 Labs: Laboratory Last Values WBC 13.8 X10^3/uL (3.6-10.0) H 06/22/21 04:00 RBC 3.04 X10^6/uL (3.5-5.4) L 06/22/21 04:00 Hgb 9.3 g/dL (12.0-16.0) L 06/22/21 04:00 Hct 28.0 % (36.0-47.0) L 06/22/21 04:00 MCV 92.1 fL (80.0-100.0) 06/22/21 04:00 MCH 30.7 pg (27.0-34.0) 06/22/21 04:00 MCHC 33.3 g/dL (33.0-35.0) 06/22/21 04:00 RDW 20.7 % (11.6-16.5) H 06/22/21 04:00 Plt Count 191 X10^3/uL (150.0-450.0) 06/22/21 04:00 Plt Count Comment Adequate (ADEQUATE) 06/22/21 04:00 MPV 7.9 fL (7.4-11.0) 06/22/21 04:00 Neut % (Auto) 85.1 % (42.0-75.0) H 06/22/21 04:00 Lymph % (Auto) 6.5 % (21.0-51.0) L 06/22/21 04:00 [place] % (Auto) 7.3 % (0.0-13.0) 06/22/21 04:00 Eos % (Auto) 0.6 % (0.9-2.9) L 06/22/21 04:00 Baso % (Auto) 0.5 % (0.2-1.0) 06/22/21 04:00 Neut # (Auto) 11.7 x10^3/uL (2.2-4.8) H 06/22/21 04:00 Lymph # (Auto) 0.9 X10^3/uL (1.3-2.9) L 06/22/21 04:00 [place] # (Auto) 1.0 x10^3/uL (0.3-0.8) H 06/22/21 04:00 Eos # (Auto) 0.1 x10^3/uL (0.0-0.2) 06/22/21 04:00 Baso # (Auto) 0.1 X10^3/uL (0.0-0.1) 06/22/21 04:00 Absolute Nucleated RBC 0.1 /100WBC 06/22/21 04:00 Total Counted 100 06/19/21 06:20 Neutrophils % (Manual) 82 % (39-76) H 06/19/21 06:20 Band Neutrophils % 2 % (0-10) 06/14/21 06:44 Lymphocytes % (Manual) 17 % (13-43) 06/19/21 06:20 Monocytes % (Manual) 1 % (4-9) L 06/19/21 06:20 Eosinophils % (Manual) 1 % (0-6) 06/11/21 16:51 Metamyelocytes % 1 06/11/21 04:20 Plt Morphology Comment Normal (NORMAL) 06/22/21 04:00 RBC Morphology Abnormal (NORMAL) A 06/22/21 04:00 Anisocytosis 1+ A 06/22/21 04:00 Target Cells Present 06/22/21 04:00 Sodium 147 mmol/L (136-145) H 06/22/21 04:00 Corrected Sodium TNP 06/22/21 04:00 Potassium 3.5 mmol/L (3.5-5.1) 06/22/21 04:00 Chloride 116 mmol/L (98-107) H* 06/22/21 04:00 Carbon Dioxide 22.0 mmol/L (21-32) 06/22/21 04:00 BUN 8 mg/dL (7-18) 06/22/21 04:00 Creatinine 0.90 mg/dL (0.55-1.02) 06/22/21 04:00 Est GFR (MDRD) Af Amer > 60 (>60) 06/22/21 04:00 Est GFR (MDRD) Non-Af > 60 (>60) 06/22/21 04:00 Glucose 84 mg/dL (65-99) 06/22/21 04:00 Lactic Acid 1.1 mmol/L (0.4-2.0) 06/10/21 11:16 Calcium 7.8 mg/dL (8.5-10.1) L 06/22/21 04:00 Corrected Calcium 9.1 mg/dL (8.5-10.1) 06/22/21 04:00 Magnesium 2.0 mg/dL (1.7-2.9) 06/21/21 03:50 Iron 65 ug/dL (50-175) 06/16/21 05:17 Transferrin 62 mg/dL (202-364) L 06/16/21 05:17 Ferritin 230 ng/mL (8-252) 06/16/21 05:17 Total Bilirubin 0.40 mg/dL (0.2-1.0) 06/22/21 04:00 AST 13 Units/L (15-37) L 06/22/21 04:00 ALT < 6 Units/L (12-78) L 06/22/21 04:00 Alkaline Phosphatase 45 Units/L (46-116) L 06/22/21 04:00 Creatine Kinase 238 Units/L (26-192) H 06/10/21 11:16 CK-MB (CK-2) 7.3 ng/mL (0-4.0) H* 06/10/21 11:16 CK/CKMB % Calc 3.1 % (<4) 06/10/21 11:16 Troponin I High Sens 7.4 ng/L (4.0-60.0) 06/10/21 11:16 Total Protein 4.3 g/dL (6.4-8.2) L 06/22/21 04:00 Albumin 2.4 g/dL (3.4-5.0) L 06/22/21 04:00 Globulin 1.9 g/dL (2.5-4.5) L 06/22/21 04:00 Albumin/Globulin Ratio 1.3 Ratio (1.1-2.1) 06/22/21 04:00 Vitamin B12 300 pg/mL (193-986) 06/16/21 05:17 Folate 18.1 ng/mL (>8.6) 06/16/21 05:17 TSH 3rd Generation 4.075 uIU/mL (0.358-3.74) H 06/10/21 11:16 Specimen Type Catherized urine 06/20/21 14:39 Urine Color Yellow (YELLOW) 06/20/21 14:39 Urine Appearance Hazy (CLEAR) 06/20/21 14:39 Urine pH 5.0 (5.0 - 8.0) 06/20/21 14:39 Ur Specific [place] 1.015 (1.000-1.030) 06/20/21 14:39 Urine Protein 2+ (NEGATIVE) 06/20/21 14:39 Urine Glucose (UA) Negative (NEGATIVE) 06/20/21 14:39 Urine Ketones Negative (NEGATIVE) 06/20/21 14:39 Urine Blood 5+ (NEGATIVE) 06/20/21 14:39 Urine Nitrite Negative (NEGATIVE) 06/20/21 14:39 Urine Bilirubin Negative (NEGATIVE) 06/20/21 14:39 Urine Urobilinogen Normal (NORMAL) 06/20/21 14:39 Ur Leukocyte Esterase 1+ (NEGATIVE) 06/20/21 14:39 Urine RBC Tntc /HPF (0-3) A 06/20/21 14:39 Urine WBC 5-10 /HPF (0-5) A 06/20/21 14:39 Ur Squamous Epith Cells Numerous /HPF (NEGATIVE) 06/20/21 14:39 Urine Bacteria 1+ /HPF (NEGATIVE) 06/20/21 14:39 Ur Culture Indicated? Yes/culture set up 06/20/21 14:39 Stool Description 5 unformed brown 06/17/21 05:45 Stl Occult Blood (IFOB) Negative (NEGATIVE) 06/17/21 05:45 Vancomycin Trough 17.2 ug/mL (15-20) 06/19/21 06:20 SARS CoV-2 RNA Rapid NEVAEH Negative (NEGATIVE) 06/10/21 11:19 Tissue Pathology To follow 06/11/21 15:20 Blood Type A POSITIVE 06/18/21 08:25 Antibody Screen Negative 06/18/21 08:25 Crossmatch See Detail 06/18/21 08:25 Reason For Visit: SEPSIS, HYPONATREMIA, AZOTEMIA, UTI, Discharge Date Discharge Date: 06/25/21 Discharge Diagnosis All Active Problems (Updated 06/22/21 @ 09:33 by Martín Blake) Back pain (Acute) Acute renal failure (Acute) Hyponatremia (Acute) Acute hypotension (Acute) Agitation (Acute) Hallucination (Acute) Dementia with behavioral disturbance (Acute) Sinusitis, acute ethmoidal (Acute) Sepsis (Acute) Acute hyponatremia (Acute) Azotemia (Acute) Acute UTI (Acute) Decubitus ulcer of sacral region, stage 4 (Acute) Elevated d-dimer (Acute) Paranoid behavior (Acute) Left pulmonary lesion (Acute) COPD with acute exacerbation (Acute) Altered mental state (Acute) Hypertension (Chronic) Plan of Treatment: Continue with present treatment and follow up plan. Pt is to keep follow up appointment as instructed and take medications as ordered. Discharge Medications Discharge Medications: No Known Drug Allergies Allergy (Verified 06/10/21 10:44) CONTINUE taking the following medications carbidopa-levodopa 1 tab PO TID 06/10/21 [History] levothyroxine 50 mcg PO DAILY 06/10/21 [History] memantine 5 mg PO BID 06/10/21 [History] New Prescriptions B [id number] [Ferrocite Plus] 1 tab PO BID 30 Days #60 tab 06/22/21 [Rx] acetaminophen-codeine 1 tab PO BID PRN 30 Days #60 tab MDD 2 tabs 06/22/21 [Rx] [id number] [Michael (with collagen)] 1 suzette PO BID 30 Days #60 ea 06/22/21 [Rx] docusate sodium 100 mg PO DAILY 30 Days #30 cap 06/22/21 [Rx] hydrocortisone 1 applic TOP TID PRN 30 Days #60 g 06/22/21 [Rx] nystatin 1 applic TOP BID PRN 30 Days #60 g 06/22/21 [Rx] pantoprazole 40 mg PO DAILY 30 Days #30 tab 06/22/21 [Rx] Discharge Disposition Discharge Disposition: SNF Discharge Condition: Stable Discharge Plan Discharge Plan Hospital Course: Pt is a 80 year old female past medical history of Hypertension, COPD, OA, admitted for Sepsis, Decubitus sacral ulcer, UTI, Hyponatremia, and Acute renal failure. She is post debridement of stage 4 sacral ulcer. Pt has received a total of 3 units packed red blood cells for anemia. She has wound vac in place. Pt had urine culture positive for Klebsiella pneu., Blood culture negative, Wound culture see report. Stool occult negative, and anemia panel appropriate. She received antibiotics: IV Zosyn and IV Flagyl and responded well to treatments, completed course with leukocytosis resolved. Pt discharged in stable condition to SNF. She is instructed to follow up with general surgery outpatient for continued wound care. Patient Disposition: SNF Condition: Stable Health Concerns: Post Hospitalization: new medications and changes needed to prevent readmission or further decline. Pt educated and given instructions on all concerns. Plan of Treatment: Continue with present treatment and follow up plan. Pt is to keep follow up appointment as instructed and take medications as ordered. Prescriptions: New acetaminophen-codeine 300-30 mg Tablet 1 tab PO BID MDD 2 tabs PRN30 Days Qty: 60 RF: 0 hydrocortisone 1 % Cream 1 applic TOP TID PRN30 Days Qty: 60 RF: 0 pantoprazole 40 mg Tablet,Delayed Release (Dr/Ec) 40 mg PO DAILY 30 Days Qty: 30 RF: 0 docusate sodium 100 mg Capsule 100 mg PO DAILY 30 Days Qty: 30 RF: 0 nystatin 100,000 unit/gram Powder 1 applic TOP BID PRN (Reason: rash) 30 Days Qty: 60 RF: 0 Ferrocite Plus 106 mg iron- 1 mg Tablet 1 tab PO BID 30 Days Qty: 60 RF: 0 Michael (with collagen) 7-7-1.5 gram Powder In Packet 1 suzette PO BID 30 Days Qty: 60 RF: 0 levofloxacin 500 mg Tablet 500 mg PO Q24H 10 Days Qty: 10 RF: 0 Continued levothyroxine 50 mcg tablet 50 mcg PO DAILY RF: 0 carbidopa-levodopa 10-100 mg tablet 1 tab PO TID RF: 0 memantine 5 mg tablet 5 mg PO BID RF: 0 escitalopram oxalate 10 mg tablet 20 mg PO DAILY RF: 0 Discontinued ferrous sulfate [FeroSul] 325 mg (65 mg iron) Tablet 325 mg PO BID RF: 0 esomeprazole magnesium 20 mg Capsule,Delayed Release(Dr/Ec) 20 mg PO ONCE RF: 0 lisinopril 20 mg tablet 20 mg PO DAILY RF: 0 potassium chloride 10 mEq tablet extended release 10 meq PO DAILY RF: 0 furosemide 20 mg tablet 20 mg PO DAILY RF: 0 risperidone 0.5 mg Tablet 0.5 mg PO BID RF: 0 Orders to Discharge Patient Discharge Orders: Discharge (Routine); Ordered 06/25/21 Ordered By: Martín Blake Follow ups/Referrals Follow ups/Referrals: CINDA FISHER [Primary Care Provider] - 3 days Instructions Stand Alone Forms: Precautions for COVID19, [facility], Patient Portal, Social Distancing
[2021-06-22] MEDS: K-RIDER 10 MEQ/NS 100 ML 10 MEQ/100 ML BAG IV PRN (10:47)
[2021-06-22] MEDS: NS 1,000 ML IV 1,000 ML IV SCH ×2 (20:00→20:23)
[2021-06-23] MEDS: ZOSYN VIAL 3.375 GRAMS 3.375 G in NS 100 ML IV 100 ML IV SCH ×3 (05:47→21:08)
[2021-06-23] MEDS: FLAGYL IV PREMIX 500 MG BAG 500 MG/100 ML BAG IV SCH ×3 (05:47→21:07)
[2021-06-23] MEDS: SINEMET (PLAIN) 10/100 MG PO SCH ×3 (05:47→21:08)
--- NOTE | 2021-06-23 07:46 | PCM.PROG ---
Progress Note Progress Note for Day of Date of Exam: 06/22/21 Subjective Subjective: Pt is a 80 year old female past medical history of Hypertension, COPD, OA, admitted for Sepsis, Decubitus sacral ulcer, UTI, Hyponatremia, and Acute renal failure. She is post debridement of stage 4 sacral ulcer. Pt has received a total of 3 units packed red blood cells. She has wound vac in place as well as arterial line. No acute changes or events overnight. Labs/imaging: Wbc 13.8, Hgb 9.3, Plt 191, Na 147, K 3.5, Creatinine 0.90, Glucose 84, Urine culture positive for Klebsiella pneu., Blood culture negative, Wound culture see report. Stool occult negative, and anemia panel appropriate. Pt is currently receiving: IVF NS@KVO. Continue antibiotics: IV Zosyn, and IV Flagyl. Continue home medications. Pt NPO after midnight for debridement by surgery in the morning. Otherwise, continue with current treatment plan, monitor closely and follow up labs in the morning. Case management arranging for SNF placement. Past Medical Family Social History Past Med/Fam/Surg Hx: No changes since H&P Allergies: Allergies No Known Drug Allergies Allergy (Verified 06/10/21 10:44) Review of Systems ROS: No change since H&P Vital Signs and I&O's Vital Signs: Temperature 98.2 F Pulse Rate [Left Radial] 99 Pulse Rate 60 Respiratory Rate 10 Blood Pressure [Right Arm] 104/56 Blood Pressure 95/54 O2 Sat by Pulse Oximetry 100 Intake and Output: Intake & Output 06/20/21 06/21/21 06/22/21 06/23/21 23:59 23:59 23:59 23:59 Intake Total 1199 / 1199 2047 / 2047 1297 / 1297 155 / 155 Output Total 1800 / 1800 1300 / 1300 925 / 925 235 / 235 Balance -601 / -601 747 / 747 372 / 372 -80 / -80 Physical Exam Oriented: Normal Eyes: Normal Ear: Normal Nose: Normal Throat: Normal Respiratory: Normal Cardiovascular: Normal : Normal Auscultation: Bowel Sounds: Normal Tenderness: Normal Skin: Wound (wound vac sacrum) Musculoskeletal: Instability Psychiatric: Normal Mood Description: Calm and Appropriate Affect: Normal Speech Pattern: Clear and Appropriate Laboratory and Diagnostics Result Diagrams: 06/22/21 04:00 06/22/21 04:00 Labs: 06/20/21 14:39 Urine,Catheterized Urine Culture - Final 06/10/21 11:20 Blood Blood Culture - Final 06/11/21 15:20 Sacral Wound Gram Stain - Final 06/11/21 15:20 Sacral Wound Culture - Final Enterococcus Faecalis 06/10/21 11:16 Blood Blood Culture - Final 06/10/21 11:34 Urine,Catheterized Urine Culture - Final Klebsiella Pneumoniae Laboratory WBC 13.8 X10^3/uL (3.6-10.0) H 06/22/21 04:00 RBC 3.04 X10^6/uL (3.5-5.4) L 06/22/21 04:00 Hgb 9.3 g/dL (12.0-16.0) L 06/22/21 04:00 Hct 28.0 % (36.0-47.0) L 06/22/21 04:00 MCV 92.1 fL (80.0-100.0) 06/22/21 04:00 MCH 30.7 pg (27.0-34.0) 06/22/21 04:00 MCHC 33.3 g/dL (33.0-35.0) 06/22/21 04:00 RDW 20.7 % (11.6-16.5) H 06/22/21 04:00 Plt Count 191 X10^3/uL (150.0-450.0) 06/22/21 04:00 Plt Count Comment Adequate (ADEQUATE) 06/22/21 04:00 MPV 7.9 fL (7.4-11.0) 06/22/21 04:00 Neut % (Auto) 85.1 % (42.0-75.0) H 06/22/21 04:00 Lymph % (Auto) 6.5 % (21.0-51.0) L 06/22/21 04:00 [place] % (Auto) 7.3 % (0.0-13.0) 06/22/21 04:00 Eos % (Auto) 0.6 % (0.9-2.9) L 06/22/21 04:00 Baso % (Auto) 0.5 % (0.2-1.0) 06/22/21 04:00 Neut # (Auto) 11.7 x10^3/uL (2.2-4.8) H 06/22/21 04:00 Lymph # (Auto) 0.9 X10^3/uL (1.3-2.9) L 06/22/21 04:00 [place] # (Auto) 1.0 x10^3/uL (0.3-0.8) H 06/22/21 04:00 Eos # (Auto) 0.1 x10^3/uL (0.0-0.2) 06/22/21 04:00 Baso # (Auto) 0.1 X10^3/uL (0.0-0.1) 06/22/21 04:00 Absolute Nucleated RBC 0.1 /100WBC 06/22/21 04:00 Total Counted 100 06/19/21 06:20 Neutrophils % (Manual) 82 % (39-76) H 06/19/21 06:20 Band Neutrophils % 2 % (0-10) 06/14/21 06:44 Lymphocytes % (Manual) 17 % (13-43) 06/19/21 06:20 Monocytes % (Manual) 1 % (4-9) L 06/19/21 06:20 Eosinophils % (Manual) 1 % (0-6) 06/11/21 16:51 Metamyelocytes % 1 06/11/21 04:20 Plt Morphology Comment Normal (NORMAL) 06/22/21 04:00 RBC Morphology Abnormal (NORMAL) A 06/22/21 04:00 Anisocytosis 1+ A 06/22/21 04:00 Target Cells Present 06/22/21 04:00 Sodium 147 mmol/L (136-145) H 06/22/21 04:00 Corrected Sodium TNP 06/22/21 04:00 Potassium 3.5 mmol/L (3.5-5.1) 06/22/21 04:00 Chloride 116 mmol/L (98-107) H* 06/22/21 04:00 Carbon Dioxide 22.0 mmol/L (21-32) 06/22/21 04:00 BUN 8 mg/dL (7-18) 06/22/21 04:00 Creatinine 0.90 mg/dL (0.55-1.02) 06/22/21 04:00 Est GFR (MDRD) Af Amer > 60 (>60) 06/22/21 04:00 Est GFR (MDRD) Non-Af > 60 (>60) 06/22/21 04:00 Glucose 84 mg/dL (65-99) 06/22/21 04:00 Lactic Acid 1.1 mmol/L (0.4-2.0) 06/10/21 11:16 Calcium 7.8 mg/dL (8.5-10.1) L 06/22/21 04:00 Corrected Calcium 9.1 mg/dL (8.5-10.1) 06/22/21 04:00 Magnesium 2.0 mg/dL (1.7-2.9) 06/21/21 03:50 Iron 65 ug/dL (50-175) 06/16/21 05:17 Transferrin 62 mg/dL (202-364) L 06/16/21 05:17 Ferritin 230 ng/mL (8-252) 06/16/21 05:17 Total Bilirubin 0.40 mg/dL (0.2-1.0) 06/22/21 04:00 AST 13 Units/L (15-37) L 06/22/21 04:00 ALT < 6 Units/L (12-78) L 06/22/21 04:00 Alkaline Phosphatase 45 Units/L (46-116) L 06/22/21 04:00 Creatine Kinase 238 Units/L (26-192) H 06/10/21 11:16 CK-MB (CK-2) 7.3 ng/mL (0-4.0) H* 06/10/21 11:16 CK/CKMB % Calc 3.1 % (<4) 06/10/21 11:16 Troponin I High Sens 7.4 ng/L (4.0-60.0) 06/10/21 11:16 Total Protein 4.3 g/dL (6.4-8.2) L 06/22/21 04:00 Albumin 2.4 g/dL (3.4-5.0) L 06/22/21 04:00 Globulin 1.9 g/dL (2.5-4.5) L 06/22/21 04:00 Albumin/Globulin Ratio 1.3 Ratio (1.1-2.1) 06/22/21 04:00 Vitamin B12 300 pg/mL (193-986) 06/16/21 05:17 Folate 18.1 ng/mL (>8.6) 06/16/21 05:17 TSH 3rd Generation 4.075 uIU/mL (0.358-3.74) H 06/10/21 11:16 Specimen Type Catherized urine 06/20/21 14:39 Urine Color Yellow (YELLOW) 06/20/21 14:39 Urine Appearance Hazy (CLEAR) 06/20/21 14:39 Urine pH 5.0 (5.0 - 8.0) 06/20/21 14:39 Ur Specific [place] 1.015 (1.000-1.030) 06/20/21 14:39 Urine Protein 2+ (NEGATIVE) 06/20/21 14:39 Urine Glucose (UA) Negative (NEGATIVE) 06/20/21 14:39 Urine Ketones Negative (NEGATIVE) 06/20/21 14:39 Urine Blood 5+ (NEGATIVE) 06/20/21 14:39 Urine Nitrite Negative (NEGATIVE) 06/20/21 14:39 Urine Bilirubin Negative (NEGATIVE) 06/20/21 14:39 Urine Urobilinogen Normal (NORMAL) 06/20/21 14:39 Ur Leukocyte Esterase 1+ (NEGATIVE) 06/20/21 14:39 Urine RBC Tntc /HPF (0-3) A 06/20/21 14:39 Urine WBC 5-10 /HPF (0-5) A 06/20/21 14:39 Ur Squamous Epith Cells Numerous /HPF (NEGATIVE) 06/20/21 14:39 Urine Bacteria 1+ /HPF (NEGATIVE) 06/20/21 14:39 Ur Culture Indicated? Yes/culture set up 06/20/21 14:39 Stool Description 5 unformed brown 06/17/21 05:45 Stl Occult Blood (IFOB) Negative (NEGATIVE) 06/17/21 05:45 Vancomycin Trough 17.2 ug/mL (15-20) 06/19/21 06:20 SARS CoV-2 RNA Rapid NEVAEH Negative (NEGATIVE) 06/10/21 11:19 Tissue Pathology To follow 06/11/21 15:20 Blood Type A POSITIVE 06/18/21 08:25 Antibody Screen Negative 06/18/21 08:25 Crossmatch See Detail 06/18/21 08:25 Plan (1) Sepsis: Status: Acute Qualifiers: Acute renal failure type: unspecified Sepsis acute organ dysfunction status: with acute organ dysfunction Sepsis type: sepsis due to unspecified organism Severe sepsis acute organ dysfunction type: acute renal failure Severe sepsis shock status: with septic shock Qualified Code(s): A41.9 - Sepsis, unspecified organism; R65.21 - Severe sepsis with septic shock; N17.9 - Acute kidney failure, unspecified Plan: IVF, IV antibiotics, continue dopamine gtt (2) Acute hyponatremia: Status: Acute (3) Acute UTI: Status: Acute (4) Acute hypotension: Status: Acute (5) Hyponatremia: Status: Acute (6) Acute renal failure: Status: Acute (7) Decubitus ulcer of sacral region, stage 4: Status: Acute Plan: Consult general surgery
[2021-06-23] MEDS ORDERED: KETAMINE HCL ONE (08:57)
[2021-06-23] MEDS ORDERED: XYLOCAINE 2 % (PLAIN) ONE (08:57)
[2021-06-23] MEDS ORDERED: LEXAPRO ONE (11:31)
[2021-06-23] MEDS: COLACE CAP 100 MG PO SCH ×2 (11:43→20:55)
[2021-06-23] MEDS: JUVEN PO SCH ×2 (11:44→20:55)
[2021-06-23] MEDS: SYNTHROID 50 mcg TAB PO SCH (11:44)
[2021-06-23] MEDS: LEXAPRO PO SCH (11:44)
[2021-06-23] MEDS: PROTONIX TAB 40 MG PO SCH (11:44)
[2021-06-23] MEDS: NAMENDA TAB 10 MG PO SCH ×2 (11:44→20:55)
[2021-06-23] MEDS: NYSTATIN POWDER TOP SCH ×2 (11:44→20:54)
[2021-06-23] MEDS: HEMOCYTE-PLUS PO SCH ×2 (11:45→20:54)
[2021-06-23] MEDS: LOVENOX INJ 40 MG SYR SC SCH (11:45)
--- NOTE | 2021-06-23 14:21 | PCM.PROG ---
Progress Note Progress Note for Day of Date of Exam: 06/23/21 Subjective Subjective: Pt is a 80 year old female past medical history of Hypertension, COPD, OA, admitted for Sepsis, Decubitus sacral ulcer, UTI, Hyponatremia, and Acute renal failure. She is post debridement of stage 4 sacral ulcer. Pt has received a total of 3 units packed red blood cells. She has wound vac in place as well as arterial line. No acute changes or events overnight. Labs/imaging: Wbc 13.8, Hgb 9.3, Plt 191, Na 147, K 3.5, Creatinine 0.90, Glucose 84, Urine culture positive for Klebsiella pneu., Blood culture negative, Wound culture see report. Stool occult negative, and anemia panel appropriate. Pt is currently receiving: IVF NS@KVO. Continue antibiotics: IV Zosyn, and IV Flagyl. Continue home medications. Patient for possible debridement by surgery in the morning. Otherwise, continue with current treatment plan, monitor closely and follow up labs in the morning. Case management arranging for SNF placement. Past Medical Family Social History Past Med/Fam/Surg Hx: No changes since H&P Allergies: Allergies No Known Drug Allergies Allergy (Verified 06/10/21 10:44) Review of Systems ROS: No change since H&P Vital Signs and I&O's Vital Signs: Temperature 99.5 F Pulse Rate [Left Radial] 99 Pulse Rate 70 Respiratory Rate 12 Blood Pressure [Right Arm] 104/56 Blood Pressure 89/52 O2 Sat by Pulse Oximetry 98 Intake and Output: Intake & Output 06/20/21 06/21/21 06/22/21 06/23/21 23:59 23:59 23:59 23:59 Intake Total 1199 / 1199 2047 / 2047 1297 / 1297 155 / 155 Output Total 1800 / 1800 1300 / 1300 925 / 925 235 / 235 Balance -601 / -601 747 / 747 372 / 372 -80 / -80 Physical Exam Oriented: Normal Eyes: Normal Ear: Normal Nose: Normal Throat: Normal Respiratory: Normal Cardiovascular: Normal : Normal Auscultation: Bowel Sounds: Normal Tenderness: Normal Skin: Wound (wound vac sacrum) Musculoskeletal: Instability Psychiatric: Normal Mood Description: Calm and Appropriate Affect: Normal Speech Pattern: Clear and Appropriate Laboratory and Diagnostics Result Diagrams: 06/22/21 04:00 06/22/21 04:00 Labs: 06/20/21 14:39 Urine,Catheterized Urine Culture - Final 06/10/21 11:20 Blood Blood Culture - Final 06/11/21 15:20 Sacral Wound Gram Stain - Final 06/11/21 15:20 Sacral Wound Culture - Final Enterococcus Faecalis 06/10/21 11:16 Blood Blood Culture - Final 06/10/21 11:34 Urine,Catheterized Urine Culture - Final Klebsiella Pneumoniae Laboratory WBC 13.8 X10^3/uL (3.6-10.0) H 06/22/21 04:00 RBC 3.04 X10^6/uL (3.5-5.4) L 06/22/21 04:00 Hgb 9.3 g/dL (12.0-16.0) L 06/22/21 04:00 Hct 28.0 % (36.0-47.0) L 06/22/21 04:00 MCV 92.1 fL (80.0-100.0) 06/22/21 04:00 MCH 30.7 pg (27.0-34.0) 06/22/21 04:00 MCHC 33.3 g/dL (33.0-35.0) 06/22/21 04:00 RDW 20.7 % (11.6-16.5) H 06/22/21 04:00 Plt Count 191 X10^3/uL (150.0-450.0) 06/22/21 04:00 Plt Count Comment Adequate (ADEQUATE) 06/22/21 04:00 MPV 7.9 fL (7.4-11.0) 06/22/21 04:00 Neut % (Auto) 85.1 % (42.0-75.0) H 06/22/21 04:00 Lymph % (Auto) 6.5 % (21.0-51.0) L 06/22/21 04:00 [place] % (Auto) 7.3 % (0.0-13.0) 06/22/21 04:00 Eos % (Auto) 0.6 % (0.9-2.9) L 06/22/21 04:00 Baso % (Auto) 0.5 % (0.2-1.0) 06/22/21 04:00 Neut # (Auto) 11.7 x10^3/uL (2.2-4.8) H 06/22/21 04:00 Lymph # (Auto) 0.9 X10^3/uL (1.3-2.9) L 06/22/21 04:00 [place] # (Auto) 1.0 x10^3/uL (0.3-0.8) H 06/22/21 04:00 Eos # (Auto) 0.1 x10^3/uL (0.0-0.2) 06/22/21 04:00 Baso # (Auto) 0.1 X10^3/uL (0.0-0.1) 06/22/21 04:00 Absolute Nucleated RBC 0.1 /100WBC 06/22/21 04:00 Total Counted 100 06/19/21 06:20 Neutrophils % (Manual) 82 % (39-76) H 06/19/21 06:20 Band Neutrophils % 2 % (0-10) 06/14/21 06:44 Lymphocytes % (Manual) 17 % (13-43) 06/19/21 06:20 Monocytes % (Manual) 1 % (4-9) L 06/19/21 06:20 Eosinophils % (Manual) 1 % (0-6) 06/11/21 16:51 Metamyelocytes % 1 06/11/21 04:20 Plt Morphology Comment Normal (NORMAL) 06/22/21 04:00 RBC Morphology Abnormal (NORMAL) A 06/22/21 04:00 Anisocytosis 1+ A 06/22/21 04:00 Target Cells Present 06/22/21 04:00 Sodium 147 mmol/L (136-145) H 06/22/21 04:00 Corrected Sodium TNP 06/22/21 04:00 Potassium 3.5 mmol/L (3.5-5.1) 06/22/21 04:00 Chloride 116 mmol/L (98-107) H* 06/22/21 04:00 Carbon Dioxide 22.0 mmol/L (21-32) 06/22/21 04:00 BUN 8 mg/dL (7-18) 06/22/21 04:00 Creatinine 0.90 mg/dL (0.55-1.02) 06/22/21 04:00 Est GFR (MDRD) Af Amer > 60 (>60) 06/22/21 04:00 Est GFR (MDRD) Non-Af > 60 (>60) 06/22/21 04:00 Glucose 84 mg/dL (65-99) 06/22/21 04:00 Lactic Acid 1.1 mmol/L (0.4-2.0) 06/10/21 11:16 Calcium 7.8 mg/dL (8.5-10.1) L 06/22/21 04:00 Corrected Calcium 9.1 mg/dL (8.5-10.1) 06/22/21 04:00 Magnesium 2.0 mg/dL (1.7-2.9) 06/21/21 03:50 Iron 65 ug/dL (50-175) 06/16/21 05:17 Transferrin 62 mg/dL (202-364) L 06/16/21 05:17 Ferritin 230 ng/mL (8-252) 06/16/21 05:17 Total Bilirubin 0.40 mg/dL (0.2-1.0) 06/22/21 04:00 AST 13 Units/L (15-37) L 06/22/21 04:00 ALT < 6 Units/L (12-78) L 06/22/21 04:00 Alkaline Phosphatase 45 Units/L (46-116) L 06/22/21 04:00 Creatine Kinase 238 Units/L (26-192) H 06/10/21 11:16 CK-MB (CK-2) 7.3 ng/mL (0-4.0) H* 06/10/21 11:16 CK/CKMB % Calc 3.1 % (<4) 06/10/21 11:16 Troponin I High Sens 7.4 ng/L (4.0-60.0) 06/10/21 11:16 Total Protein 4.3 g/dL (6.4-8.2) L 06/22/21 04:00 Albumin 2.4 g/dL (3.4-5.0) L 06/22/21 04:00 Globulin 1.9 g/dL (2.5-4.5) L 06/22/21 04:00 Albumin/Globulin Ratio 1.3 Ratio (1.1-2.1) 06/22/21 04:00 Vitamin B12 300 pg/mL (193-986) 06/16/21 05:17 Folate 18.1 ng/mL (>8.6) 06/16/21 05:17 TSH 3rd Generation 4.075 uIU/mL (0.358-3.74) H 06/10/21 11:16 Specimen Type Catherized urine 06/20/21 14:39 Urine Color Yellow (YELLOW) 06/20/21 14:39 Urine Appearance Hazy (CLEAR) 06/20/21 14:39 Urine pH 5.0 (5.0 - 8.0) 06/20/21 14:39 Ur Specific [place] 1.015 (1.000-1.030) 06/20/21 14:39 Urine Protein 2+ (NEGATIVE) 06/20/21 14:39 Urine Glucose (UA) Negative (NEGATIVE) 06/20/21 14:39 Urine Ketones Negative (NEGATIVE) 06/20/21 14:39 Urine Blood 5+ (NEGATIVE) 06/20/21 14:39 Urine Nitrite Negative (NEGATIVE) 06/20/21 14:39 Urine Bilirubin Negative (NEGATIVE) 06/20/21 14:39 Urine Urobilinogen Normal (NORMAL) 06/20/21 14:39 Ur Leukocyte Esterase 1+ (NEGATIVE) 06/20/21 14:39 Urine RBC Tntc /HPF (0-3) A 06/20/21 14:39 Urine WBC 5-10 /HPF (0-5) A 06/20/21 14:39 Ur Squamous Epith Cells Numerous /HPF (NEGATIVE) 06/20/21 14:39 Urine Bacteria 1+ /HPF (NEGATIVE) 06/20/21 14:39 Ur Culture Indicated? Yes/culture set up 06/20/21 14:39 Stool Description 5 unformed brown 06/17/21 05:45 Stl Occult Blood (IFOB) Negative (NEGATIVE) 06/17/21 05:45 Vancomycin Trough 17.2 ug/mL (15-20) 06/19/21 06:20 SARS CoV-2 RNA Rapid NEVAEH Negative (NEGATIVE) 06/10/21 11:19 Tissue Pathology To follow 06/11/21 15:20 Blood Type A POSITIVE 06/18/21 08:25 Antibody Screen Negative 06/18/21 08:25 Crossmatch See Detail 06/18/21 08:25 Plan (1) Sepsis: Status: Acute Qualifiers: Acute renal failure type: unspecified Sepsis acute organ dysfunction status: with acute organ dysfunction Sepsis type: sepsis due to unspecified organism Severe sepsis acute organ dysfunction type: acute renal failure Severe sepsis shock status: with septic shock Qualified Code(s): A41.9 - Sepsis, unspecified organism; R65.21 - Severe sepsis with septic shock; N17.9 - Acute kidney failure, unspecified Plan: IVF, IV antibiotics, continue dopamine gtt (2) Acute hyponatremia: Status: Acute (3) Acute UTI: Status: Acute (4) Acute hypotension: Status: Acute (5) Hyponatremia: Status: Acute (6) Acute renal failure: Status: Acute (7) Decubitus ulcer of sacral region, stage 4: Status: Acute Plan: Consult general surgery
[2021-06-23] MEDS: NS 1,000 ML IV 1,000 ML IV SCH ×2 (15:01→22:36)
[2021-06-24 03:54] LABS: BASOPHILS % (AUTO) 0.4 % (0.2-1.0); EOSINOPHILS # (AUTO) 0.1 x10^3/uL (0.0-0.2); EOSINOPHILS % (AUTO) 1.8 % (0.9-2.9); HEMATOCRIT 26.1 % (36.0-47.0); HEMOGLOBIN 8.7 g/dL (12.0-16.0); LYMPHOCYTES # (AUTO) 0.9 X10^3/uL (1.3-2.9); LYMPHOCYTES % (AUTO) 10.8 % (21.0-51.0); MEAN CORPUSCULAR HEMOGLOBIN 30.8 pg (27.0-34.0); MEAN CORPUSCULAR HGB CONC 33.4 g/dL (33.0-35.0); MEAN CORPUSCULAR VOLUME 92.2 fL (80.0-100.0); MEAN PLATELET VOLUME 8.6 fL (7.4-11.0); MONOCYTES # (AUTO) 0.9 x10^3/uL (0.3-0.8); MONOCYTES % (AUTO) 10.3 % (0.0-13.0); NEUTROPHILS # (AUTO) 6.4 x10^3/uL (2.2-4.8); NEUTROPHILS % (AUTO) 76.7 % (42.0-75.0); RED BLOOD COUNT 2.83 X10^6/uL (3.5-5.4); RED CELL DISTRIBUTION WIDTH 21.2 % (11.6-16.5); WHITE BLOOD COUNT 8.3 X10^3/uL (3.6-10.0)
[2021-06-24 04:03] LABS: ALANINE AMINOTRANSFERASE 6 Units/L (12-78); ALBUMIN 1.8 g/dL (3.4-5.0); ALKALINE PHOSPHATASE 41 Units/L (46-116); ASPARTATE AMINO TRANSFERASE 10 Units/L (15-37); BLOOD UREA NITROGEN 10 mg/dL (7-18); CALCIUM 7.3 mg/dL (8.5-10.1); CHLORIDE 114 mmol/L (98-107); COR CA(FOR HYPOALB) 9.1 mg/dL (8.5-10.1); CREATININE 0.82 mg/dL (0.55-1.02); SODIUM 145 mmol/L (136-145); TOTAL PROTEIN 3.6 g/dL (6.4-8.2); eGFR NON BLACK RACES > 60 (>60)
[2021-06-24] MEDS ORDERED: NS 100 ML IV 100 ML ONE (04:32)
[2021-06-24] MEDS: K-RIDER 10 MEQ/NS 100 ML 10 MEQ/100 ML BAG IV PRN ×3 (04:39→06:57)
[2021-06-24 04:41] LABS: PLATELET MORPHOLOGY COMMENT NORMAL (NORMAL)
[2021-06-24 04:42] LABS: ANISOCYTOSIS 1+; HYPOCHROMASIA SLIGHT; TARGET CELLS PRESENT
[2021-06-24] MEDS: MAGNESIUM SULFATE 1 GRAM/100 mL PREMIX 1 G/100 ML BAG IV PRN ×2 (05:46→06:59)
[2021-06-24] MEDS: ZOSYN VIAL 3.375 GRAMS 3.375 G in NS 100 ML IV 100 ML IV SCH ×4 (05:46→21:00)
[2021-06-24] MEDS: FLAGYL IV PREMIX 500 MG BAG 500 MG/100 ML BAG IV SCH ×3 (05:46→21:00)
[2021-06-24] MEDS: SINEMET (PLAIN) 10/100 MG PO SCH ×3 (05:46→21:00)
[2021-06-24] MEDS: NAMENDA TAB 10 MG PO SCH ×2 (08:28→20:15)
[2021-06-24] MEDS: COLACE CAP 100 MG PO SCH ×3 (08:28→20:15)
[2021-06-24] MEDS: JUVEN PO SCH ×2 (08:28→10:47)
[2021-06-24] MEDS: HEMOCYTE-PLUS PO SCH ×3 (08:29→20:15)
[2021-06-24] MEDS: PROTONIX TAB 40 MG PO SCH ×2 (08:29→10:50)
[2021-06-24] MEDS: LEXAPRO PO SCH ×2 (08:29→10:50)
[2021-06-24] MEDS: SYNTHROID 50 mcg TAB PO SCH ×2 (08:30→10:51)
[2021-06-24] MEDS ORDERED: BETADINE SOLN ONE (08:37)
[2021-06-24] MEDS ORDERED: LR 1,000 ML IV 1,000 ML IV ONE (08:44)
[2021-06-24] MEDS ORDERED: DIPRIVAN VIAL 20 ML ONE (08:52)
[2021-06-24] MEDS ORDERED: VERSED ONE (08:53)
[2021-06-24] MEDS ORDERED: FENTANYL VIAL INJ 100 mcg ONE (09:03)
[2021-06-24] MEDS ORDERED: ZOFRAN INJ 4 MG VIAL ONE (09:07)
[2021-06-24] MEDS ORDERED: PEPCID 20 MG VIAL ONE (09:07)
[2021-06-24] MEDS ORDERED: POLYMYXIN B SULFATE ONE (09:10)
[2021-06-24] MEDS ORDERED: EPHEDRINE SULFATE INJ ONE (09:12)
[2021-06-24] MEDS ORDERED: LEXAPRO ONE (10:33)
[2021-06-24] MEDS: LOVENOX INJ 40 MG SYR SC SCH (10:39)
[2021-06-24] MEDS: NYSTATIN POWDER TOP SCH ×2 (10:43→20:16)
[2021-06-24] MEDS ORDERED: NS IV ONE ×2 (11:00)
[2021-06-24] MEDS ORDERED: POTASSIUM CHLORIDE IV ONE ×2 (11:00)
--- NOTE | 2021-06-24 11:39 | PCM.PROG ---
Progress Note Progress Note for Day of Date of Exam: 06/24/21 Subjective Subjective: Pt is a 80 year old female past medical history of Hypertension, COPD, OA, admitted for Sepsis, Decubitus sacral ulcer, UTI, Hyponatremia, and Acute renal failure. She is post debridement of stage 4 sacral ulcer. Pt has received a total of 3 units packed red blood cells. She has wound vac in place. Doing well this morning. No acute changes or events overnight. Labs/imaging: Wbc 8.3, Hgb 8.7, Plt 140, Na 145, K 3.0, Creatinine 0.82, Glucose 107, Urine culture positive for Klebsiella pneu., Blood culture negative, Wound culture see report. Stool occult negative, and anemia panel appropriate. Pt is currently receiving: IVF NS@KVO. Continue antibiotics: IV Zosyn, and IV Flagyl. Continue home medications. Patient is scheduled for debridement by surgery this morning. Otherwise, continue with current treatment plan, monitor closely and follow up labs in the morning. Case management arranging for SNF placement. Past Medical Family Social History Past Med/Fam/Surg Hx: No changes since H&P Allergies: Allergies No Known Drug Allergies Allergy (Verified 06/10/21 10:44) Review of Systems ROS: No change since H&P Vital Signs and I&O's Vital Signs: Temperature 97.7 F Pulse Rate [Left Radial] 99 Pulse Rate 68 Respiratory Rate 18 Blood Pressure [Right Arm] 104/56 Blood Pressure 110/55 O2 Sat by Pulse Oximetry 100 Intake and Output: Intake & Output 06/21/21 06/22/21 06/23/21 06/24/21 23:59 23:59 23:59 23:59 Intake Total 2047 / 2047 1297 / 1297 1596 / 1596 1415 / 1415 Output Total 1300 / 1300 925 / 925 790 / 790 1324 / 1324 Balance 747 / 747 372 / 372 806 / 806 91 / 91 Physical Exam Oriented: Normal Eyes: Normal Ear: Normal Nose: Normal Throat: Normal Respiratory: Normal Cardiovascular: Normal : Normal Auscultation: Bowel Sounds: Normal Tenderness: Normal Skin: Wound (wound vac sacrum) Musculoskeletal: Instability Psychiatric: Normal Mood Description: Calm and Appropriate Affect: Normal Speech Pattern: Clear and Appropriate Laboratory and Diagnostics Result Diagrams: 06/24/21 03:10 06/24/21 03:10 Labs: 06/20/21 14:39 Urine,Catheterized Urine Culture - Final 06/10/21 11:20 Blood Blood Culture - Final 06/11/21 15:20 Sacral Wound Gram Stain - Final 06/11/21 15:20 Sacral Wound Culture - Final Enterococcus Faecalis 06/10/21 11:16 Blood Blood Culture - Final 06/10/21 11:34 Urine,Catheterized Urine Culture - Final Klebsiella Pneumoniae Laboratory WBC 8.3 X10^3/uL (3.6-10.0) 06/24/21 03:10 RBC 2.83 X10^6/uL (3.5-5.4) L 06/24/21 03:10 Hgb 8.7 g/dL (12.0-16.0) L 06/24/21 03:10 Hct 26.1 % (36.0-47.0) L 06/24/21 03:10 MCV 92.2 fL (80.0-100.0) 06/24/21 03:10 MCH 30.8 pg (27.0-34.0) 06/24/21 03:10 MCHC 33.4 g/dL (33.0-35.0) 06/24/21 03:10 RDW 21.2 % (11.6-16.5) H 06/24/21 03:10 Plt Count 140 X10^3/uL (150.0-450.0) L 06/24/21 03:10 Plt Count Comment Decreased (ADEQUATE) A 06/24/21 03:10 MPV 8.6 fL (7.4-11.0) 06/24/21 03:10 Neut % (Auto) 76.7 % (42.0-75.0) H 06/24/21 03:10 Lymph % (Auto) 10.8 % (21.0-51.0) L 06/24/21 03:10 [place] % (Auto) 10.3 % (0.0-13.0) 06/24/21 03:10 Eos % (Auto) 1.8 % (0.9-2.9) 06/24/21 03:10 Baso % (Auto) 0.4 % (0.2-1.0) 06/24/21 03:10 Neut # (Auto) 6.4 x10^3/uL (2.2-4.8) H 06/24/21 03:10 Lymph # (Auto) 0.9 X10^3/uL (1.3-2.9) L 06/24/21 03:10 [place] # (Auto) 0.9 x10^3/uL (0.3-0.8) H 06/24/21 03:10 Eos # (Auto) 0.1 x10^3/uL (0.0-0.2) 06/24/21 03:10 Baso # (Auto) 0.0 X10^3/uL (0.0-0.1) 06/24/21 03:10 Absolute Nucleated RBC 0.1 /100WBC 06/24/21 03:10 Total Counted 100 06/19/21 06:20 Neutrophils % (Manual) 82 % (39-76) H 06/19/21 06:20 Band Neutrophils % 2 % (0-10) 06/14/21 06:44 Lymphocytes % (Manual) 17 % (13-43) 06/19/21 06:20 Monocytes % (Manual) 1 % (4-9) L 06/19/21 06:20 Eosinophils % (Manual) 1 % (0-6) 06/11/21 16:51 Metamyelocytes % 1 06/11/21 04:20 Plt Morphology Comment Normal (NORMAL) 06/24/21 03:10 RBC Morphology Abnormal (NORMAL) A 06/24/21 03:10 Hypochromasia Slight A 06/24/21 03:10 Anisocytosis 1+ A 06/24/21 03:10 Target Cells Present 06/24/21 03:10 Sodium 145 mmol/L (136-145) 06/24/21 03:10 Corrected Sodium TNP 06/24/21 03:10 Potassium 3.0 mmol/L (3.5-5.1) L* 06/24/21 03:10 Chloride 114 mmol/L (98-107) H 06/24/21 03:10 Carbon Dioxide 26.0 mmol/L (21-32) 06/24/21 03:10 BUN 10 mg/dL (7-18) 06/24/21 03:10 Creatinine 0.82 mg/dL (0.55-1.02) 06/24/21 03:10 Est GFR (MDRD) Af Amer > 60 (>60) 06/24/21 03:10 Est GFR (MDRD) Non-Af > 60 (>60) 06/24/21 03:10 Glucose 107 mg/dL (65-99) H 06/24/21 03:10 Lactic Acid 1.1 mmol/L (0.4-2.0) 06/10/21 11:16 Calcium 7.3 mg/dL (8.5-10.1) L 06/24/21 03:10 Corrected Calcium 9.1 mg/dL (8.5-10.1) 06/24/21 03:10 Magnesium 1.7 mg/dL (1.7-2.9) 06/24/21 03:10 Iron 65 ug/dL (50-175) 06/16/21 05:17 Transferrin 62 mg/dL (202-364) L 06/16/21 05:17 Ferritin 230 ng/mL (8-252) 06/16/21 05:17 Total Bilirubin 0.40 mg/dL (0.2-1.0) 06/24/21 03:10 AST 10 Units/L (15-37) L 06/24/21 03:10 ALT 6 Units/L (12-78) L 06/24/21 03:10 Alkaline Phosphatase 41 Units/L (46-116) L 06/24/21 03:10 Creatine Kinase 238 Units/L (26-192) H 06/10/21 11:16 CK-MB (CK-2) 7.3 ng/mL (0-4.0) H* 06/10/21 11:16 CK/CKMB % Calc 3.1 % (<4) 06/10/21 11:16 Troponin I High Sens 7.4 ng/L (4.0-60.0) 06/10/21 11:16 Total Protein 3.6 g/dL (6.4-8.2) L 06/24/21 03:10 Albumin 1.8 g/dL (3.4-5.0) L 06/24/21 03:10 Globulin 1.8 g/dL (2.5-4.5) L 06/24/21 03:10 Albumin/Globulin Ratio 1.0 Ratio (1.1-2.1) L 06/24/21 03:10 Vitamin B12 300 pg/mL (193-986) 06/16/21 05:17 Folate 18.1 ng/mL (>8.6) 06/16/21 05:17 TSH 3rd Generation 4.075 uIU/mL (0.358-3.74) H 06/10/21 11:16 Specimen Type Catherized urine 06/20/21 14:39 Urine Color Yellow (YELLOW) 06/20/21 14:39 Urine Appearance Hazy (CLEAR) 06/20/21 14:39 Urine pH 5.0 (5.0 - 8.0) 06/20/21 14:39 Ur Specific [place] 1.015 (1.000-1.030) 06/20/21 14:39 Urine Protein 2+ (NEGATIVE) 06/20/21 14:39 Urine Glucose (UA) Negative (NEGATIVE) 06/20/21 14:39 Urine Ketones Negative (NEGATIVE) 06/20/21 14:39 Urine Blood 5+ (NEGATIVE) 06/20/21 14:39 Urine Nitrite Negative (NEGATIVE) 06/20/21 14:39 Urine Bilirubin Negative (NEGATIVE) 06/20/21 14:39 Urine Urobilinogen Normal (NORMAL) 06/20/21 14:39 Ur Leukocyte Esterase 1+ (NEGATIVE) 06/20/21 14:39 Urine RBC Tntc /HPF (0-3) A 06/20/21 14:39 Urine WBC 5-10 /HPF (0-5) A 06/20/21 14:39 Ur Squamous Epith Cells Numerous /HPF (NEGATIVE) 06/20/21 14:39 Urine Bacteria 1+ /HPF (NEGATIVE) 06/20/21 14:39 Ur Culture Indicated? Yes/culture set up 06/20/21 14:39 Stool Description 5 unformed brown 06/17/21 05:45 Stl Occult Blood (IFOB) Negative (NEGATIVE) 06/17/21 05:45 Vancomycin Trough 17.2 ug/mL (15-20) 06/19/21 06:20 SARS CoV-2 RNA Rapid NEVAEH Negative (NEGATIVE) 06/10/21 11:19 Tissue Pathology To follow 06/24/21 09:30 Blood Type A POSITIVE 06/18/21 08:25 Antibody Screen Negative 06/18/21 08:25 Crossmatch See Detail 06/18/21 08:25 Plan (1) Sepsis: Status: Acute Qualifiers: Acute renal failure type: unspecified Sepsis acute organ dysfunction status: with acute organ dysfunction Sepsis type: sepsis due to unspecified organism Severe sepsis acute organ dysfunction type: acute renal failure Severe sepsis shock status: with septic shock Qualified Code(s): A41.9 - Sepsis, unspecified organism; R65.21 - Severe sepsis with septic shock; N17.9 - Acute kidney failure, unspecified Plan: IVF, IV antibiotics, continue dopamine gtt (2) Acute hyponatremia: Status: Acute (3) Acute UTI: Status: Acute (4) Acute hypotension: Status: Acute (5) Hyponatremia: Status: Acute (6) Acute renal failure: Status: Acute (7) Decubitus ulcer of sacral region, stage 4: Status: Acute Plan: Consult general surgery
[2021-06-24] MEDS: NS 1/2 + KCL 20 MEQ/L 1,000 ML IV SCH ×2 (14:55→16:53)
[2021-06-24] MEDS ORDERED: STERILE WATER IRRIGATION IR ONE (14:59)
[2021-06-24] MEDS ORDERED: XOPENEX 1.25 MG/3 ML NEBULE NEB PRN (15:24)
[2021-06-24] MEDS ORDERED: XOPENEX 1.25 MG/3 ML NEBULE NEB SCH (17:00)
--- NOTE | 2021-06-24 18:01 | RAD ---
HISTORYwheezes and edema Relevant Clinical InformationSTUDYCHEST, 1 VIEWCOMPARISONChest x-ray dated June 10, 2021.FINDINGSThe trachea is midline. The cardiac silhouette is enlarged with prominent perihilar vasculature, diffuse alveolar/interstitial markings, and cephalization of vessels. Suggestion of a moderate to large left pleural effusion with associated compressive atelectasis versus infiltrate. Chronic emphysematous and interstitial lung changes.. No obvious pneumothorax. The bony thorax is unremarkable.IMPRESSIONConstellation of findings likely representing pulmonary edema secondary to congestive heart failure. Underlying infiltrate not entirely excluded. Recommend clinical/laboratory correlation and following to resolution.Electronically signed by: CHELSI BUSTOS (Jun 24, 2021 18:00:50)
[2021-06-24] MEDS ORDERED: LASIX IVP ONE (18:30)
[2021-06-25] MEDS: ZOSYN VIAL 3.375 GRAMS 3.375 G in NS 100 ML IV 100 ML IV SCH (04:59)
[2021-06-25] MEDS: SINEMET (PLAIN) 10/100 MG PO SCH ×2 (04:59→13:53)
[2021-06-25] MEDS: FLAGYL IV PREMIX 500 MG BAG 500 MG/100 ML BAG IV SCH (04:59)
[2021-06-25 05:08] LABS: BASOPHILS % (AUTO) 0.4 % (0.2-1.0); EOSINOPHILS # (AUTO) 0.1 x10^3/uL (0.0-0.2); EOSINOPHILS % (AUTO) 1.6 % (0.9-2.9); HEMATOCRIT 25.6 % (36.0-47.0); HEMOGLOBIN 8.7 g/dL (12.0-16.0); MEAN CORPUSCULAR HEMOGLOBIN 31.3 pg (27.0-34.0); MEAN CORPUSCULAR HGB CONC 34.1 g/dL (33.0-35.0); MEAN CORPUSCULAR VOLUME 91.7 fL (80.0-100.0); MEAN PLATELET VOLUME 9.1 fL (7.4-11.0); MONOCYTES # (AUTO) 0.8 x10^3/uL (0.3-0.8); MONOCYTES % (AUTO) 9.7 % (0.0-13.0); NEUTROPHILS # (AUTO) 6.6 x10^3/uL (2.2-4.8); NEUTROPHILS % (AUTO) 76.3 % (42.0-75.0); RED BLOOD COUNT 2.79 X10^6/uL (3.5-5.4); RED CELL DISTRIBUTION WIDTH 22.5 % (11.6-16.5); WHITE BLOOD COUNT 8.6 X10^3/uL (3.6-10.0)
[2021-06-25 05:20] LABS: ALANINE AMINOTRANSFERASE < 6 Units/L (12-78); ALBUMIN 1.8 g/dL (3.4-5.0); ALKALINE PHOSPHATASE 45 Units/L (46-116); ASPARTATE AMINO TRANSFERASE 11 Units/L (15-37); BLOOD UREA NITROGEN 10 mg/dL (7-18); CALCIUM 7.4 mg/dL (8.5-10.1); CARBON DIOXIDE 26.6 mmol/L (21-32); CHLORIDE 111 mmol/L (98-107); COR CA(FOR HYPOALB) 9.2 mg/dL (8.5-10.1); COR NA(FOR HYPERGLY) 142 mmol/L (136-145); CREATININE 0.75 mg/dL (0.55-1.02); SODIUM 142 mmol/L (136-145); eGFR NON BLACK RACES > 60 (>60)
[2021-06-25 05:53] LABS: ANISOCYTOSIS 2+; BURR CELLS PRESENT; PLATELET MORPHOLOGY COMMENT NORMAL (NORMAL); POIKILOCYTOSIS SLIGHT; TARGET CELLS PRESENT
[2021-06-25] MEDS: NS 1,000 ML IV 1,000 ML IV SCH (06:54)
--- NOTE | 2021-06-25 08:09 | PCM.PROG ---
Progress Note Progress Note for Day of Date of Exam: 06/25/21 Subjective Subjective: Pt is a 80 year old female past medical history of Hypertension, COPD, OA, admitted for Sepsis, Decubitus sacral ulcer, UTI, Hyponatremia, and Acute renal failure. She is post debridement of stage 4 sacral ulcer. Pt has received a total of 3 units packed red blood cells. She has wound vac in place. Yesterday post debridement she did have wheezing and shortness of breath. CXR revealed pulmonary edema and IV lasix 40mg x 1 dose was ordered along with xopenex treatment prn. Good urine output and patient respiratory status back to baseline without shortness of breath this morning. Labs/imaging: Wbc 8.6, Hgb 8.7, Plt 137, Na 142, K 3.7, Creatinine 0.75, Glucose 116, Urine culture positive for Klebsiella pneu., Blood culture negative, Wound culture see report. Stool occult negative, and anemia panel appropriate. Pt is currently receiving: IVF NS@KVO. Continue antibiotics: IV Zosyn, and IV Flagyl. Leukocytosis back within normal limits. Will discontinue antibiotics. Continue home medications and current treatment plan, monitor closely and follow up labs in the morning. Case management arranging for SNF placement. Past Medical Family Social History Past Med/Fam/Surg Hx: No changes since H&P Allergies: Allergies No Known Drug Allergies Allergy (Verified 06/10/21 10:44) Review of Systems ROS: No change since H&P Vital Signs and I&O's Vital Signs: Temperature 98.0 F Pulse Rate [Left Radial] 88 Pulse Rate 66 Respiratory Rate 10 Blood Pressure [Right Arm] 81/53 Blood Pressure 100/56 O2 Sat by Pulse Oximetry 100 Intake and Output: Intake & Output 06/22/21 06/23/21 06/24/21 06/25/21 23:59 23:59 23:59 23:59 Intake Total 1297 / 1297 1596 / 1596 3878 / 3878 172 / 172 Output Total 925 / 925 790 / 790 3024 / 3024 500 / 500 Balance 372 / 372 806 / 806 854 / 854 -328 / -328 Physical Exam Oriented: Normal Eyes: Normal Ear: Normal Nose: Normal Throat: Normal Respiratory: Normal Cardiovascular: Normal : Normal Auscultation: Bowel Sounds: Normal Tenderness: Normal Skin: Wound (wound vac sacrum) Musculoskeletal: Instability Psychiatric: Normal Mood Description: Calm and Appropriate Affect: Normal Speech Pattern: Clear and Appropriate Laboratory and Diagnostics Result Diagrams: 06/25/21 04:30 06/25/21 04:30 Labs: 06/20/21 14:39 Urine,Catheterized Urine Culture - Final 06/10/21 11:20 Blood Blood Culture - Final 06/11/21 15:20 Sacral Wound Gram Stain - Final 06/11/21 15:20 Sacral Wound Culture - Final Enterococcus Faecalis 06/10/21 11:16 Blood Blood Culture - Final 06/10/21 11:34 Urine,Catheterized Urine Culture - Final Klebsiella Pneumoniae Laboratory WBC 8.6 X10^3/uL (3.6-10.0) 06/25/21 04:30 RBC 2.79 X10^6/uL (3.5-5.4) L 06/25/21 04:30 Hgb 8.7 g/dL (12.0-16.0) L 06/25/21 04:30 Hct 25.6 % (36.0-47.0) L 06/25/21 04:30 MCV 91.7 fL (80.0-100.0) 06/25/21 04:30 MCH 31.3 pg (27.0-34.0) 06/25/21 04:30 MCHC 34.1 g/dL (33.0-35.0) 06/25/21 04:30 RDW 22.5 % (11.6-16.5) H 06/25/21 04:30 Plt Count 137 X10^3/uL (150.0-450.0) L 06/25/21 04:30 Plt Count Comment Decreased (ADEQUATE) A 06/25/21 04:30 MPV 9.1 fL (7.4-11.0) 06/25/21 04:30 Neut % (Auto) 76.3 % (42.0-75.0) H 06/25/21 04:30 Lymph % (Auto) 12.0 % (21.0-51.0) L 06/25/21 04:30 [place] % (Auto) 9.7 % (0.0-13.0) 06/25/21 04:30 Eos % (Auto) 1.6 % (0.9-2.9) 06/25/21 04:30 Baso % (Auto) 0.4 % (0.2-1.0) 06/25/21 04:30 Neut # (Auto) 6.6 x10^3/uL (2.2-4.8) H 06/25/21 04:30 Lymph # (Auto) 1.0 X10^3/uL (1.3-2.9) L 06/25/21 04:30 [place] # (Auto) 0.8 x10^3/uL (0.3-0.8) 06/25/21 04:30 Eos # (Auto) 0.1 x10^3/uL (0.0-0.2) 06/25/21 04:30 Baso # (Auto) 0.0 X10^3/uL (0.0-0.1) 06/25/21 04:30 Absolute Nucleated RBC 0.1 /100WBC 06/25/21 04:30 Total Counted 100 06/19/21 06:20 Neutrophils % (Manual) 82 % (39-76) H 06/19/21 06:20 Band Neutrophils % 2 % (0-10) 06/14/21 06:44 Lymphocytes % (Manual) 17 % (13-43) 06/19/21 06:20 Monocytes % (Manual) 1 % (4-9) L 06/19/21 06:20 Eosinophils % (Manual) 1 % (0-6) 06/11/21 16:51 Metamyelocytes % 1 06/11/21 04:20 Plt Morphology Comment Normal (NORMAL) 06/25/21 04:30 RBC Morphology Abnormal (NORMAL) A 06/25/21 04:30 Hypochromasia Slight A 06/24/21 03:10 Poikilocytosis Slight A 06/25/21 04:30 Anisocytosis 2+ A 06/25/21 04:30 Target Cells Present 06/25/21 04:30 Desiree Cells Present 06/25/21 04:30 Sodium 142 mmol/L (136-145) 06/25/21 04:30 Corrected Sodium 142 mmol/L (136-145) 06/25/21 04:30 Potassium 3.7 mmol/L (3.5-5.1) 06/25/21 04:30 Chloride 111 mmol/L (98-107) H 06/25/21 04:30 Carbon Dioxide 26.6 mmol/L (21-32) 06/25/21 04:30 BUN 10 mg/dL (7-18) 06/25/21 04:30 Creatinine 0.75 mg/dL (0.55-1.02) 06/25/21 04:30 Est GFR (MDRD) Af Amer > 60 (>60) 06/25/21 04:30 Est GFR (MDRD) Non-Af > 60 (>60) 06/25/21 04:30 Glucose 116 mg/dL (65-99) H 06/25/21 04:30 Lactic Acid 1.1 mmol/L (0.4-2.0) 06/10/21 11:16 Calcium 7.4 mg/dL (8.5-10.1) L 06/25/21 04:30 Corrected Calcium 9.2 mg/dL (8.5-10.1) 06/25/21 04:30 Magnesium 1.7 mg/dL (1.7-2.9) 06/24/21 03:10 Iron 65 ug/dL (50-175) 06/16/21 05:17 Transferrin 62 mg/dL (202-364) L 06/16/21 05:17 Ferritin 230 ng/mL (8-252) 06/16/21 05:17 Total Bilirubin 0.30 mg/dL (0.2-1.0) 06/25/21 04:30 AST 11 Units/L (15-37) L 06/25/21 04:30 ALT < 6 Units/L (12-78) L 06/25/21 04:30 Alkaline Phosphatase 45 Units/L (46-116) L 06/25/21 04:30 Creatine Kinase 238 Units/L (26-192) H 06/10/21 11:16 CK-MB (CK-2) 7.3 ng/mL (0-4.0) H* 06/10/21 11:16 CK/CKMB % Calc 3.1 % (<4) 06/10/21 11:16 Troponin I High Sens 7.4 ng/L (4.0-60.0) 06/10/21 11:16 Total Protein 4.0 g/dL (6.4-8.2) L 06/25/21 04:30 Albumin 1.8 g/dL (3.4-5.0) L 06/25/21 04:30 Globulin 2.2 g/dL (2.5-4.5) L 06/25/21 04:30 Albumin/Globulin Ratio 0.8 Ratio (1.1-2.1) L 06/25/21 04:30 Vitamin B12 300 pg/mL (193-986) 06/16/21 05:17 Folate 18.1 ng/mL (>8.6) 06/16/21 05:17 TSH 3rd Generation 4.075 uIU/mL (0.358-3.74) H 06/10/21 11:16 Specimen Type Catherized urine 06/20/21 14:39 Urine Color Yellow (YELLOW) 06/20/21 14:39 Urine Appearance Hazy (CLEAR) 06/20/21 14:39 Urine pH 5.0 (5.0 - 8.0) 06/20/21 14:39 Ur Specific [place] 1.015 (1.000-1.030) 06/20/21 14:39 Urine Protein 2+ (NEGATIVE) 06/20/21 14:39 Urine Glucose (UA) Negative (NEGATIVE) 06/20/21 14:39 Urine Ketones Negative (NEGATIVE) 06/20/21 14:39 Urine Blood 5+ (NEGATIVE) 06/20/21 14:39 Urine Nitrite Negative (NEGATIVE) 06/20/21 14:39 Urine Bilirubin Negative (NEGATIVE) 06/20/21 14:39 Urine Urobilinogen Normal (NORMAL) 06/20/21 14:39 Ur Leukocyte Esterase 1+ (NEGATIVE) 06/20/21 14:39 Urine RBC Tntc /HPF (0-3) A 06/20/21 14:39 Urine WBC 5-10 /HPF (0-5) A 06/20/21 14:39 Ur Squamous Epith Cells Numerous /HPF (NEGATIVE) 06/20/21 14:39 Urine Bacteria 1+ /HPF (NEGATIVE) 06/20/21 14:39 Ur Culture Indicated? Yes/culture set up 06/20/21 14:39 Stool Description 5 unformed brown 06/17/21 05:45 Stl Occult Blood (IFOB) Negative (NEGATIVE) 06/17/21 05:45 Vancomycin Trough 17.2 ug/mL (15-20) 06/19/21 06:20 SARS CoV-2 RNA Rapid NEVAEH Negative (NEGATIVE) 06/10/21 11:19 Tissue Pathology To follow 06/24/21 09:30 Blood Type A POSITIVE 06/18/21 08:25 Antibody Screen Negative 06/18/21 08:25 Crossmatch See Detail 06/18/21 08:25 Plan (1) Sepsis: Status: Acute Qualifiers: Acute renal failure type: unspecified Sepsis acute organ dysfunction status: with acute organ dysfunction Sepsis type: sepsis due to unspecified organism Severe sepsis acute organ dysfunction type: acute renal failure Severe sepsis shock status: with septic shock Qualified Code(s): A41.9 - Sepsis, unspecified organism; R65.21 - Severe sepsis with septic shock; N17.9 - Acute kidney failure, unspecified Plan: IVF, IV antibiotics, continue dopamine gtt (2) Acute hyponatremia: Status: Acute (3) Acute UTI: Status: Acute (4) Acute hypotension: Status: Acute (5) Hyponatremia: Status: Acute (6) Acute renal failure: Status: Acute (7) Decubitus ulcer of sacral region, stage 4: Status: Acute Plan: Consult general surgery
[2021-06-25] MEDS ORDERED: LEXAPRO ONE (08:35)
[2021-06-25] MEDS: COLACE CAP 100 MG PO SCH (08:53)
[2021-06-25] MEDS: LOVENOX INJ 40 MG SYR SC SCH (08:54)
[2021-06-25] MEDS: HEMOCYTE-PLUS PO SCH (08:54)
[2021-06-25] MEDS: NAMENDA TAB 10 MG PO SCH (08:54)
[2021-06-25] MEDS: LEXAPRO PO SCH (08:54)
[2021-06-25] MEDS: NYSTATIN POWDER TOP SCH (08:55)
[2021-06-25] MEDS: SYNTHROID 50 mcg TAB PO SCH (08:55)
[2021-06-25] MEDS: PROTONIX TAB 40 MG PO SCH (08:55)
[2021-06-25] MEDS ORDERED: MICRO K EXTEN CAP 10 MEQ PO SCH (09:00)
[2021-06-25] MEDS: NS 1/2 + KCL 20 MEQ/L 1,000 ML IV SCH (13:51)
[2021-06-25 14:04] VITALS: BP 100/57
== END 2021-06-25 14:40 | DRG 871 ==
LOC: ER 10:31 → ICU 13:21
PROVIDERS: ADMIT Family Medicine; ATTEND Family Medicine
PROC: CLINEPL (2021-06-11 13:30)